=== PATIENT | male | born 1970 | race Caucasian/White ===

== ENCOUNTER 2017-12-02 15:34 | Inpatient (IN) | payer MEDICAID, SELFPAY ==
[2017-12-02 15:35] VITALS: BP 160/83; PULSE 88; RESP 16; TEMP 37.1; O2SAT 99; BMI 33.1
--- NOTE | 2017-12-02 16:23 | RAD_ITS ---
STUDY: X-RAY - LEFT HAND REASON FOR EXAM: Male, 46 years old. Cat-bite. TECHNIQUE: 3 view(s) of the hand. COMPARISON: None. FINDINGS: Normal radiocarpal articulation. Normal distal radioulnar joint. Normal visualized carpal bones. Normal carpal articulations Normal carpometacarpal articulation of the thumb. Normal second through fifth carpometacarpal joints. Normal metacarpi. Normal metacarpophalangeal joint of the thumb. Normal interphalangeal joint of the thumb. Normal proximal and distal phalanges of the thumb. Normal metacarpophalangeal joints of the second through fifth fingers. Normal proximal and distal interphalangeal joints of the second through fifth fingers. Normal phalanges of the second through fifth fingers. There is soft tissue swelling overlying the fifth metacarpal. RAD/Hand Min 3 Views IMPRESSION: No osseous injury identified. Soft tissue swelling overlying the fifth metacarpal. Electronically Signed: Guerline Johnson MD at 17:17 EST Tel , Service support ,
--- NOTE | 2017-12-02 16:27 | ED.DCSUM_ITS ---
- ER Visit Summary Date of Service: 12/02/17 Chief Complaint: Cat bite right hand History of Present Illness: The patient is a 46 M who states that he was bit by his cat on the right hand 3 days ago. His hand is more painful and swollen today. He has not noted fever. Shots are all up-to-date. Past history for patient is significant for DE, coronary disease, diabetes, hypertension, and renal failure. He has 2 cardiac stents. Physical Examination: Pressures 160/83, otherwise vitals are normal. Patient is afebrile. Head neck examination is unremarkable. Heart is regular rate and rhythm without murmur. Lung sounds are clear. Right upper extremity examination reveals pustules along the ulnar side of the right hand. There is a small abrasion over the extensor finger #5 near the PIP joint. There is no clinical evidence of tenosynovitis. Right hand is swollen. Test Results: CBC was normal white count. Chemistry studies are significant only for glucose of 163. Blood cultures were sent. Emergency Department Course and Treatment: Patient was given oxycodone for pain. Shortly following this he started complaining of pain in the left axilla region. 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 Troponin is less than 0.02. Patient was given a dose of IV Unasyn. Right hand x-rays reveal no osseous injury. There is soft tissue swelling over the fifth metacarpal. Patient was consented for I&D. 2 cc of lidocaine was infused around the pustules. The pustules were opened and aerobic and anaerobic cultures were obtained of the fluid. Wounds were cleansed, erythema outlined, and dressing was placed. I spoke with Dr. Adams, who will see the patient in consultation. Patient was admitted to hospitalist service. Treatment Plan: [] Disposition: Admit Impression: Cat bite right hand This note was generated with [employer]azood[employer] dictation software. It may contain incorrect words, spelling, and punctuation that were not noted in review of the chart prior to signing ED Disposition - Plan for ED Patient: Disposition: Acute Care [facility] Chief Complaint: Bite
[2017-12-02] MEDS: oxyCODONE 5 MG Tablet 10 MG PO (16:40)
[2017-12-02] MEDS: 0.9% Normal Saline 1,000 ML 150 ML IV (16:42)
--- NOTE | 2017-12-02 17:00 | EKG12_ITS ---
Test Reason : CP Blood Pressure : / mmHG Vent. Rate : 076 BPM Atrial Rate : 076 BPM P-R Int : 152 ms QRS Dur : 082 ms QT Int : 386 ms P-R-T Axes : 064 049 039 degrees QTc Int : 434 ms Normal sinus rhythm Normal ECG Confirmed by RENO JUAN MD ([id number]), writer editor GRUPO MIJARES ([id number] on 12/04/2017 1:39:27 PM Referred By: CAS
[2017-12-02 17:02] LABS: Absolute Lymphocyte Count 1.34 X10^3/ul (0.83-4.51); Absolute Neutrophil Count 3.2 X10^3/uL (2.0-7.7); Basophil# 0.03 X10^3/uL; Basophil% 0.6 % (0-1); Eosinophil# 0.17 X10^3/uL; Eosinophils% 3.3 % (0-5); Hematocrit 37.4 % (40-54); Hemoglobin 12.1 g/dl (13.0-16.5); Lymphocyte # 1.34 X10^3/ul (4.0); Lymphocyte % 26.2 % (19-41); Mean Corp Hgb Conc 32.4 g/gl (32-36); Mean Corpuscular Volume 92.8 fL (80-94); Mean Platelet Vol. 10.7 fl (6.2-12.0); Monocyte# 0.37 X10^3/uL; Monocyte% 7.2 % (0-10); Neutrophil # 3.19 X10^3/uL (2.7-7.7); Neutrophil % 62.5 % (47-70); Platelet Count 213 K/mm3 (150-450); RBC Distribution Width CV 13.4 % (11.6-14.6); RBC Distribution Width SD 44.2 fl (35.1-43.9); Red Blood Count 4.03 M/mm3 (4.6-6.2); White Blood Count 5.1 K/mm3 (4.4-11.0)
[2017-12-02 17:14] LABS: POSITIVE COUNT NO; POSITIVE DIFFERENTIAL NO; POSITIVE MORPHOLOGY NO
[2017-12-02 17:17] LABS: Anion Gap 5 (5-15); BUN 8 mg/dL (7-18); BUN/Creat Ratio 9.5 RATIO (10-20); Calcium,Total 8.1 mg/dL (8.5-10.1); Chloride 106 mmol/L (98-107); Creatinine, Serum 0.84 mg/dL (0.70-1.30); EST Glomerular Filtration Rate 104 mL/min (>60); Est Glom Filt Rate - Afr Amer 126 mL/min (>60); Estimated Creatinine Clearance 134.91 ml/min; Glucose 163 mg/dL (74-106); Potassium 3.8 mmol/L (3.5-5.1); Sodium Level 138 mmol/L (136-145)
[2017-12-02 18:01] VITALS: BP 161/89; PULSE 60; RESP 16; O2SAT 96
--- NOTE | 2017-12-02 19:09 | PCM.HP.STD ---
Problem List (1) Cat bite of hand Status: Acute Qualifiers: Encounter type: initial encounter Laterality: right Qualified Code(s): S61.451A - Open bite of right hand, initial encounter; W55.01XA - Bitten by cat, initial encounter (2) Essential (primary) hypertension Status: Chronic (3) CAD (coronary artery disease) Status: Chronic Comment: hx AMI 1 stent (4) Seasonal allergies Status: Chronic (5) Overactive bladder Status: Chronic (6) spinal stenosis Status: Chronic (7) Hyperlipidemia Status: Chronic (8) Diabetes Status: Chronic Comment: with diabetic neuropathy History of Present Illness Date of Admission: 12/02/17 Chief Complaint: cat bite/ skin infection The patient is a 46 year old male patient who presents to the ER three days after being bitten by his own cat at home. He was bit on his right hand and has subsequently developed swelling of the left hand with redness and warmth along with increasing pain. He was found to have pustules on the ulnar side of the right hand. Wound was cleaned and dressed in the ER. The patient is on chronic oxycodone by his PCP for presumed back pain. He has a significant history of coronary artery disease and has two stents. A troponin was run but is negative. Due to the nature of location of the bite and ensuing infection admission to the hospital was warranted for IV antibiotics. Dr. Adams was notified by ER physician and will be consulted for wound management. Past Medical History Past Medical History (Chronic Problems): Chronic Problems (Last Updated 09/24/17 @ 09:54 by WILMAN Bell) Essential (primary) hypertension (Chronic) CAD (coronary artery disease) (Chronic) hx AMI 1 stent Seasonal allergies (Chronic) Overactive bladder (Chronic) spinal stenosis (Chronic) Hyperlipidemia (Chronic) Diabetes (Chronic) with diabetic neuropathy Allergies acetaminophen [From Tylenol] Allergy (Verified 12/02/17 15:35) Angioedema aspirin Allergy (Verified 12/02/17 15:35) Anaphylaxis ibuprofen [From Motrin] Allergy (Verified 12/02/17 15:35) Anaphylaxis metformin Allergy (Verified 12/02/17 15:35) Swelling pollen extracts Allergy (Verified 12/02/17 15:35) Hives morphine Adverse Reaction (Verified 12/02/17 15:35) Other REDDNESS AND ITCHING TO IV SITE Home Medications: Ambulatory Orders Medication Instructions Recorded Atorvastatin Calcium [Lipitor] 80 mg PO QHS 08/02/15 Citalopram [Celexa] 10 mg PO DAILY 08/02/15 Cyclobenzaprine [Flexeril] 10 mg PO TID 08/02/15 Gabapentin [Neurontin] 800 mg PO TID 08/02/15 Oxybutynin [Ditropan] 5 mg PO DAILY 08/02/15 Ranitidine [Zantac] 300 mg PO BID 08/02/15 Cholecalciferol (VIT D3) [Vitamin 1,000 unit PO BID 08/17/15 D3] B12/Levomefolate Calcium/B-6 1 ea PO DAILY 11/17/15 [Foltx Tablet] Nitroglycerin [Nitrostat] 0.4 mg SUBLINGUAL Q5M PRN 11/17/15 Esomeprazole Mag Trihydrate 40 mg PO BID 03/05/16 [Nexium] Oxycodone [Oxyir] 5 mg PO BID PRN PRN 03/05/16 Lisinopril [Zestril] 2.5 mg PO DAILY #30 tab 03/02/17 Metoprolol Succinate [Toprol Xl] 25 mg PO DAILY #30 tab.er.24h 03/02/17 GlipiZIDE [Glucotrol] 5 mg PO DAILY@0730 #30 tab 07/27/17 cilostazol 100 mg tablet 100 mg PO BID #60 tab 09/25/17 clopidogrel 75 mg tablet 75 mg PO QDAY 09/25/17 Hydroxyzine HCl 25 mg PO 4X/DAY 12/02/17 Isosorbide Mononitrate [Imdur] 30 mg PO DAILY 12/02/17 Surgical History: angioplasty, cholecystectomy, - - 3 hernia,both knees,spinal injections, 1 stent in his heart Smoking Status: Current every day smoker - *Family History Paternal History Items: Heart Disease Maternal History Items: - - mother with cirrhosis, kidney disease Sibling History Items: - - ca Review of Systems Constitutional: Reports: Chills. Denies: Fever, Weight Change HEENT: Denies: Head Aches, Sinus Congestion, Sinus Drainage Cardiovascular: Denies: Chest Pain, Palpitations Respiratory: Denies: Cough, Shortness of breath at rest, Sputum production Gastrointestinal: Denies: Abdominal Pain, Nausea, Vomiting Genitourinary: Denies: Dysuria Musculoskeletal: Denies: Joint Pain, Joint Tenderness Skin: Reports: Skin Changes, Wounds. Denies: Rash Neurological: Denies: Numbness, Tingling, Focal weakness Psychiatric: Reports: Anxiety. Denies: Depression, Homicidal Ideations, Suicidal Ideations Hematologic/ Lymphatic: Denies: Easy Bruising, Easy Bleeding VTE Information - Inpt Only VTE Present on Admission: No VTE Mechan Device Prophylaxis: None VTE Pharm Prophylaxis ordered?: Yes Patient Problems: Active and Suspected Problems (Last Updated 09/24/17 @ 09:54 by Fede Montero MD SENIOR RESEARCH SCIENTIST-C) Cat bite of hand (Acute) - Physical Exam General: Alert, Oriented x3, Cooperative HEENT: Atraumatic, Normocephalic Neck: Supple Lungs: Clear to auscultation, Normal air movement, No rhonchi, No wheeze, No rales Cardiovascular: Regular rate, Regular Rhythm, Normal S1, Normal S2, No murmurs Abdomen: Bowel Sounds Present, Obese Extremities: Edema - right upper extremity Skin: Ulcer/ Wound - two pustular lesions on ulnar side of right hand. generalized edema/erythema of right hand to the wrist line. No lymphangitic streaking noted Musculoskeletal: Tenderness - right hand Neurological: Neuro grossly intact Psych/Mental Status: Normal Affect, Appropriate Vital Signs Temp Pulse Resp BP Pulse Ox 98.7 F 60 16 161/89 H 96 12/02/17 15:35 12/02/17 18:01 12/02/17 18:01 12/02/17 18:01 12/02/17 18:01 Oxygen Delivery Method Room Air Weight: 272 lb 0.807 oz Body Mass Index (BMI) 33.1 Finger Stick Blood Glucose 127 Laboratory Tests Past 24 Hrs 12/02/17 12/02/17 12/02/17 16:35 16:35 16:35 WBC 5.1 RBC 4.03 L Hgb 12.1 L Hct 37.4 L MCV 92.8 MCH 30.0 MCHC 32.4 RDW 13.4 RDW Differential 44.2 H Plt Count 213 MPV 10.7 Immature Gran % (Auto) 0.200 Neut % (Auto) 62.5 Lymph % (Auto) 26.2 Sanders % (Auto) 7.2 Eos % (Auto) 3.3 Baso % (Auto) 0.6 Absolute Neuts (auto) 3.2 Absolute Lymphs (auto) 1.34 Total Counted Not Reportable Sodium 138 Potassium 3.8 Chloride 106 Carbon Dioxide 27.0 Anion Gap 5 BUN 8 Creatinine 0.84 Estim Creat Clear Calc 134.91 Est GFR (MDRD) Af Amer 126 Est GFR (MDRD) Non-Af 104 BUN/Creatinine Ratio 9.5 L Glucose 163 H Calcium 8.1 L Troponin I < 0.02 Assessment/Plan Active and Suspected Problems (Last Updated 09/24/17 @ 09:54 by Fede Montero, MD SENIOR RESEARCH SCIENTIST-C) Cat bite of hand (Acute) Chronic Problems (Last Updated 09/24/17 @ 09:54 by MILY BellC) Essential (primary) hypertension (Chronic) CAD (coronary artery disease) (Chronic) hx AMI 1 stent Seasonal allergies (Chronic) Overactive bladder (Chronic) spinal stenosis (Chronic) Hyperlipidemia (Chronic) Diabetes (Chronic) with diabetic neuropathy Plan - admit to general medical floor - consult Dr Adams - Melvin to be continued - regular diet - oxycodone prn for pain - cbc, bmp in am - continue routine home medications - LMWH for DVT prophylaxis Code Visit Inpatient E&M: 26955 Init Hosp L3
[2017-12-02 19:16] VITALS: BP 122/95; PULSE 72; RESP 17; O2SAT 97
[2017-12-02 19:20] VITALS: BP 122/95; PULSE 72; RESP 17; O2SAT 95
[2017-12-02 19:21] VITALS: BMI 33.1
[2017-12-02 19:54] VITALS: BMI 32.1
[2017-12-02 20:30] VITALS: BP 128/86; PULSE 76; RESP 18; TEMP 36.8; O2SAT 96
[2017-12-02] MEDS: Pantoprazole Sodium 40 MG Tablet PO (21:21)
[2017-12-02] MEDS: Gabapentin 800 MG Tablet PO (21:21)
[2017-12-02] MEDS: Famotidine 20 MG Tablet 40 MG PO (21:21)
[2017-12-02] MEDS: Cilostazol 50 MG Tablet 100 MG PO (21:21)
[2017-12-02] MEDS: Atorvastatin Calcium 80 MG Tablet PO (21:21)
[2017-12-02] MEDS: oxyCODONE 5 MG Tablet PO (21:22)
[2017-12-02 22:20] LABS: Bedside Glucose 227 mg/dL (70-110)
[2017-12-03 02:30] VITALS: BP 124/82; PULSE 72; RESP 18; TEMP 36.2; O2SAT 95
[2017-12-03 07:06] LABS: Bedside Glucose 110 mg/dL (70-110)
[2017-12-03 08:00] VITALS: BP 146/81; PULSE 69; RESP 16; TEMP 36.6; O2SAT 98
[2017-12-03] MEDS: Lisinopril 2.5 MG Tablet PO (09:16)
[2017-12-03 09:17] VITALS: PULSE 69
[2017-12-03] MEDS: Cilostazol 50 MG Tablet 100 MG PO ×2 (09:17→21:17)
[2017-12-03] MEDS: Metoprolol(XL)Succ 25 MG Tablet PO (09:17)
[2017-12-03] MEDS: Clopidogrel Bisulfate 75 MG Tablet PO (09:18)
[2017-12-03] MEDS: Citalopram 10 MG Tablet PO (09:18)
[2017-12-03] MEDS: Pantoprazole Sodium 40 MG Tablet PO ×2 (09:18→21:17)
[2017-12-03] MEDS: Isosorbide Mononitrate 30 MG Tablet PO (09:18)
[2017-12-03] MEDS: Gabapentin 800 MG Tablet PO ×3 (09:18→17:07)
[2017-12-03] MEDS: Famotidine 20 MG Tablet 40 MG PO ×2 (09:19→21:17)
[2017-12-03] MEDS: Oxybutynin 5 MG Tablet PO (09:19)
[2017-12-03] MEDS: Enoxaparin 40 MG/0.4 ML Syringe SC (09:20)
--- NOTE | 2017-12-03 09:45 | PCM.CONS.GEN ---
Reason for Consult Date of Consultation: 12/03/17 Reason for Consultation: Cat bite ulnar aspect right palm. REFERRING PHYSICIAN: Dr. Shelton. NIGHT CLUB MANAGER: Dr. Adams. History of Present Illness: The patient is a 46 year old M who was admitted because a right hand infection after being bitten by his own cat at home a few days ago. He developed increasing pain and redness and swelling in his right palm. He denies any fever. He is diabetic and was concerned because of his worsening symptomatology. In the ED, an Xray was obtained which showed no fracture and no foreign body. His WBC in the ED was 5.1. In the ED the two puncture wounds on the ulnar aspect right palm were opened up to allow better drainage. A wound culture was obtained. He was started on Unasyn. I was asked to evaluate this patient for surgical options for treatment. Past Medical History Past Medical History (Chronic Problems): Chronic Problems (Last Updated 09/24/17 @ 09:54 by Fede Montero NP-C) Smoker (Chronic) Essential (primary) hypertension (Chronic) CAD (coronary artery disease) (Chronic) hx AMI 1 stent Seasonal allergies (Chronic) Overactive bladder (Chronic) spinal stenosis (Chronic) Hyperlipidemia (Chronic) Diabetes (Chronic) with diabetic neuropathy Allergies acetaminophen [From Tylenol] Allergy (Verified 12/02/17 15:35) Angioedema aspirin Allergy (Verified 12/02/17 15:35) Anaphylaxis ibuprofen [From Motrin] Allergy (Verified 12/02/17 15:35) Anaphylaxis metformin Allergy (Verified 12/02/17 15:35) Swelling pollen extracts Allergy (Verified 12/02/17 15:35) Hives morphine Adverse Reaction (Verified 12/02/17 15:35) Other REDNESS AND ITCHING TO IV SITE Current Medications Atorvastatin Calcium (Lipitor) 80 mg PO QHS [facility] Cholecalciferol (Vitamin D) 1,000 unit PO BID [facility] Cilostazol (Pletal) 100 mg PO BID [facility] Citalopram Hydrobromide (Celexa) 10 mg PO DAILY [facility] Clopidogrel Bisulfate (Plavix) 75 mg PO DAILY [facility] Cyclobenzaprine HCl (Flexeril) 10 mg PO TID [facility] Enoxaparin Sodium (Lovenox) 40 mg SC DAILY@1000 [facility] Famotidine (Pepcid) 40 mg PO BID [facility] Gabapentin (Neurontin) 800 mg PO TIDCM [facility] Glipizide (Glucotrol) 5 mg PO DAILY@0730 [facility] Glucagon () 1 mg IM .X1 PRN Hydroxyzine Pamoate (Vistaril) 25 mg PO 4X/DAY [facility] Ampicillin Sodium/Sulbactam (Sodium 3 gm/ Sodium Chloride) 112 mls @ 150 mls/hr IV Q6 [facility] Isosorbide Mononitrate (Imdur) 30 mg PO DAILY [facility] Lisinopril (Zestril) 2.5 mg PO DAILY [facility] Magnesium Hydroxide (Milk Of Magnesia) 30 ml PO DAILY PRN Metoprolol Succinate (Toprol Xl (Beta Delia)) 25 mg PO DAILY [facility] Nitroglycerin (Nitrostat) 0.4 mg SUBLINGUAL Q5M PRN Non-Formulary Medication (B12/Levomefolate Calcium/B-6 [Foltx Tablet]) 1 ea PO DAILY [facility] Oxybutynin Chloride (Ditropan) 5 mg PO DAILY [facility] Oxycodone HCl (Oxyir) 5 mg PO BID PRN Pantoprazole Sodium (Protonix) 40 mg PO BID [facility] PAST MEDICAL HISTORY Diabetes mellitus. Hypertension. CAD with PR. Chest pain. Hypertension. Hyperlipidemia. Migraines. Ulcers. Leg pain. Depression. Anxiety. Spinal stenosis. Overactive bladder. Home Medications: Ambulatory Orders Medication Instructions Recorded Atorvastatin Calcium [Lipitor] 80 mg PO QHS 08/02/15 Citalopram [Celexa] 10 mg PO DAILY 08/02/15 Cyclobenzaprine [Flexeril] 10 mg PO TID 08/02/15 Gabapentin [Neurontin] 800 mg PO TID 08/02/15 Oxybutynin [Ditropan] 5 mg PO DAILY 08/02/15 Ranitidine [Zantac] 300 mg PO BID 08/02/15 Cholecalciferol (VIT D3) [Vitamin 1,000 unit PO BID 08/17/15 D3] B12/Levomefolate Calcium/B-6 1 ea PO DAILY 11/17/15 [Foltx Tablet] Nitroglycerin [Nitrostat] 0.4 mg SUBLINGUAL Q5M PRN 11/17/15 Esomeprazole Mag Trihydrate 40 mg PO BID 03/05/16 [Nexium] Oxycodone [Oxyir] 5 mg PO BID PRN PRN 03/05/16 clopidogrel 75 mg tablet 75 mg PO QDAY 09/25/17 Cilostazol 100 mg PO BID 12/02/17 GlipiZIDE [Glucotrol] 5 mg PO DAILY@0730 12/02/17 Hydroxyzine HCl 25 mg PO 4X/DAY 12/02/17 Isosorbide Mononitrate [Imdur] 30 mg PO DAILY 12/02/17 Lisinopril [Zestril] 2.5 mg PO DAILY 12/02/17 Metoprolol Succinate [Toprol Xl] 25 mg PO DAILY 12/02/17 Levofloxacin [Levaquin] 500 mg PO DAILY #7 tab 12/04/17 Surgical History: angioplasty, cholecystectomy, - - 3 hernia,both knees,spinal injections, 1 stent in his heart Psychiatric History: Anxiety, Depression Lives: Spouse/ Significant Other Smoking Status: Current every day smoker Tobacco Use: Cigarettes Alcohol: None Drugs: None - *Family History Paternal History Items: Heart Disease Maternal History Items: - - mother with cirrhosis, kidney disease Sibling History Items: - - ca Review of Systems Comment: Review of Systems. Constitutional: Reports: Chills. Denies: Fever, Weight Change. HEENT: Denies: Head Aches, Sinus Congestion, Sinus Drainage. Cardiovascular: Denies: Chest Pain, Palpitations. Respiratory: Denies: Cough, Shortness of breath at rest, Sputum production. Gastrointestinal: Denies: Abdominal Pain, Nausea, Vomiting. Genitourinary: Denies: Dysuria. Musculoskeletal: Denies: Joint Pain, Joint Tenderness. Skin: Reports: Skin Changes, Wounds. Denies: Rash. Neurological: Denies: Numbness, Tingling, Focal weakness. Psychiatric: Reports: Anxiety. Denies: Depression, Homicidal Ideations, Suicidal Ideations. Hematologic/ Lymphatic: Denies: Easy Bruising, Easy Bleeding - Physical Exam General: Alert, Oriented x3, Cooperative HEENT: Atraumatic, Normocephalic Neck: Supple Lungs: Clear to auscultation Cardiovascular: Regular rate, Regular Rhythm Abdomen: Soft and nondistended. Extremities: Edema - mild edema right upper extremity Skin: Ulcer/ Wound - two pustular lesions on ulnar side of right hand. Subcutaneous tissue seen. Mild edemal right palm in area of cat bite wounds. Some periwound redness. According to the nurses, the redness has improved since the IV antibiotics were started. Patient can make a fist. Flexion and extension of his fingers right hand are intact. Flexion and extension of small finger is nontender without evidence of tenosynovitis at this time. Wrist is nontender. Fingers are warm with good capillary refill. No redness on distal forearm. Radial pulses are palpable. No axillary adenopathy. Neurological: Neuro grossly intact Psych/Mental Status: Normal Affect, Appropriate Vital Signs Vital Signs Temp Pulse Resp BP Pulse Ox 97.8 F 69 16 146/81 H 98 12/03/17 08:00 12/03/17 09:17 12/03/17 08:00 12/03/17 08:00 12/03/17 08:00 Oxygen Delivery Method Room Air Weight: 264 lb Body Mass Index (BMI) 32.1 Intake and Output for Last 24 Hours 12/01/17 12/02/17 12/03/17 23:59 23:59 23:59 Intake Total 1470 / 1470 Output Total 750 / 750 Balance 720 / 720 POC Glucose 12/03/17 12/02/17 06:03 21:52 POC Glucose 110 227 H Diagnostic Data Hand X-Ray 12/02/17 16:23 IMPRESSION: No osseous injury identified. Soft tissue swelling overlying the fifth metacarpal. Electronically Signed: Guerline Johnson MD at 17:17 EST Tel , Service support , Assessment/Plan 1. Cat bite wound infection ulnar aspect right palm with cellulitis. 2. Diabetes mellitus. 3. Smoker. Continue IV Unasyn. If improvement continues can send home on Augmentin. Wound culture is pending. A positive culture may necessitate antibiotic modification. Patient has good range of motion and will encourage to minimize stiffness. If redness doesn't resolve and the infection comes to a head in the area of the puncture wounds, then would need to go to OR for incision and drainage and excisional debridement to open up the wounds to make the wound care easier. Wound care will be with Aquacel Silver. If the Silver dressing can't be placed into the puncture wounds because they are small, then would place iodoform gauze into the puncture wounds. If surgery is necessary, then it will be easier to use Aquacel Silver for the wound care. Will order a CT hand to look for a deeper focus of infection. If improvement is seen and the patient is sent home on Augmentin, I will followup closely on a weekly basis until healed since cat bites can still become problematic several days later and may still require surgery even after discharge. If surgery is done, then he will followup at the [facility]. Patient was informed of the risks and complications of the procedure including alternatives to surgery. These were discussed with him personally. He voices understanding and wishes to proceed with close observation, IV antibiotics and wound care and he understands that surgery may be necessary. Some of the risks that were discussed included but were not inclusive of failure to diagnose including symptom relief, pain, infection, numbness, stiffness, loss of digit, RSD, need for further surgery, contracture, and wound healing problems. Encouraged the patient to stop smoking as it may have deleterious effects on wound healing. Code Visit Inpatient E&M: 41529 Init Hosp L2 - ICD-10 - W55.01xA, S61.451A, L03.113, F17.200
--- NOTE | 2017-12-03 09:51 | CON.PCM_ITS ---
Reason for Consult Date of Consultation: 12/03/17 Reason for Consultation: Cat bite ulnar aspect right palm. REFERRING PHYSICIAN : Dr. Shelton. SECURITY ARCHITECT: Dr. Adams. History of Present Illness: The patient is a 46 year old M who was admitted because a right hand infection after being bitten by his own cat at home a few days ago. He developed increasing pain and redness and swelling in his right palm. He denies any fever. He is diabetic and was concerned because of his worsening symptomatology. In the ED, an Xray was obtained which showed no fracture and no foreign body. His WBC in the ED was 5.1. In the ED the two puncture wounds on the ulnar aspect right palm were opened up to allow better drainage. A wound culture was obtained. He was started on Unasyn. I was asked to evaluate this patient for surgical options for treatment. Past Medical History Past Medical History (Chronic Problems): Chronic Problems (Last Updated 09/24/17 @ 09:54 by Fede Montero NP-C) Smoker (Chronic) Essential (primary) hypertension (Chronic) CAD (coronary artery disease) (Chronic) hx AMI 1 stent Seasonal allergies (Chronic) Overactive bladder (Chronic) spinal stenosis (Chronic) Hyperlipidemia (Chronic) Diabetes (Chronic) with diabetic neuropathy Allergies acetaminophen [From Tylenol] Allergy (Verified 12/02/17 15:35) Angioedema aspirin Allergy (Verified 12/02/17 15:35) Anaphylaxis ibuprofen [From Motrin] Allergy (Verified 12/02/17 15:35) Anaphylaxis metformin Allergy (Verified 12/02/17 15:35) Swelling pollen extracts Allergy (Verified 12/02/17 15:35) Hives morphine Adverse Reaction (Verified 12/02/17 15:35) Other REDNESS AND ITCHING TO IV SITE Current Medications Atorvastatin Calcium (Lipitor) 80 mg PO QHS [facility] Cholecalciferol (Vitamin D) 1,000 unit PO BID [facility] Cilostazol (Pletal) 100 mg PO BID [facility] Citalopram Hydrobromide (Celexa) 10 mg PO DAILY [facility] Clopidogrel Bisulfate (Plavix) 75 mg PO DAILY [facility] Cyclobenzaprine HCl (Flexeril) 10 mg PO TID [facility] Enoxaparin Sodium (Lovenox) 40 mg SC DAILY@1000 [facility] Famotidine (Pepcid) 40 mg PO BID [facility] Gabapentin (Neurontin) 800 mg PO TIDCM [facility] Glipizide (Glucotrol) 5 mg PO DAILY@0730 [facility] Glucagon () 1 mg IM .X1 PRN Hydroxyzine Pamoate (Vistaril) 25 mg PO 4X/DAY [facility] Ampicillin Sodium/Sulbactam (Sodium 3 gm/ Sodium Chloride) 112 mls @ 150 mls/ hr IV Q6 [facility] Isosorbide Mononitrate (Imdur) 30 mg PO DAILY [facility] Lisinopril (Zestril) 2.5 mg PO DAILY [facility] Magnesium Hydroxide (Milk Of Magnesia) 30 ml PO DAILY PRN Metoprolol Succinate (Toprol Xl (Beta Delia)) 25 mg PO DAILY [facility] Nitroglycerin (Nitrostat) 0.4 mg SUBLINGUAL Q5M PRN Non-Formulary Medication (B12/Levomefolate Calcium/B-6 [Foltx Tablet]) 1 ea PO DAILY [facility] Oxybutynin Chloride (Ditropan) 5 mg PO DAILY [facility] Oxycodone HCl (Oxyir) 5 mg PO BID PRN Pantoprazole Sodium (Protonix) 40 mg PO BID [facility] PAST MEDICAL HISTORY Diabetes mellitus. Hypertension. CAD with [facility]. Chest pain. Hypertension. Hyperlipidemia. Migraines. Ulcers. Leg pain. Depression. Anxiety. Spinal stenosis. Overactive bladder. Home Medications: Ambulatory Orders Medication Instructions Recorded Atorvastatin Calcium [Lipitor] 80 mg PO QHS 08/02/15 Citalopram [Celexa] 10 mg PO DAILY 08/02/15 Cyclobenzaprine [Flexeril] 10 mg PO TID 08/02/15 Gabapentin [Neurontin] 800 mg PO TID 08/02/15 Oxybutynin [Ditropan] 5 mg PO DAILY 08/02/15 Ranitidine [Zantac] 300 mg PO BID 08/02/15 Cholecalciferol (VIT D3) [Vitamin 1,000 unit PO BID 08/17/15 D3] B12/Levomefolate Calcium/B-6 1 ea PO DAILY 11/17/15 [Foltx Tablet] Nitroglycerin [Nitrostat] 0.4 mg SUBLINGUAL Q5M PRN 11/17/15 Esomeprazole Mag Trihydrate 40 mg PO BID 03/05/16 [Nexium] Oxycodone [Oxyir] 5 mg PO BID PRN PRN 03/05/16 clopidogrel 75 mg tablet 75 mg PO QDAY 09/25/17 Cilostazol 100 mg PO BID 12/02/17 GlipiZIDE [Glucotrol] 5 mg PO DAILY@0730 12/02/17 Hydroxyzine HCl 25 mg PO 4X/DAY 12/02/17 Isosorbide Mononitrate [Imdur] 30 mg PO DAILY 12/02/17 Lisinopril [Zestril] 2.5 mg PO DAILY 12/02/17 Metoprolol Succinate [Toprol Xl] 25 mg PO DAILY 12/02/17 Levofloxacin [Levaquin] 500 mg PO DAILY #7 tab 12/04/17 Surgical History: angioplasty, cholecystectomy, - - 3 hernia,both knees,spinal injections, 1 stent in his heart Psychiatric History: Anxiety, Depression Lives: Spouse/ Significant Other Smoking Status: Current every day smoker Tobacco Use: Cigarettes Alcohol: None Drugs: None - *Family History Paternal History Items: Heart Disease Maternal History Items: - - mother with cirrhosis, kidney disease Sibling History Items: - - ca Review of Systems Comment: Review of Systems. Constitutional: Reports: Chills. Denies: Fever, Weight Change. HEENT: Denies: Head Aches, Sinus Congestion, Sinus Drainage. Cardiovascular: Denies: Chest Pain, Palpitations. Respiratory: Denies: Cough, Shortness of breath at rest, Sputum production. Gastrointestinal: Denies: Abdominal Pain, Nausea, Vomiting. Genitourinary: Denies: Dysuria. Musculoskeletal: Denies: Joint Pain, Joint Tenderness. Skin: Reports: Skin Changes, Wounds. Denies: Rash. Neurological: Denies: Numbness, Tingling, Focal weakness. Psychiatric: Reports: Anxiety. Denies: Depression, Homicidal Ideations, Suicidal Ideations. Hematologic/ Lymphatic: Denies: Easy Bruising, Easy Bleeding - Physical Exam General: Alert, Oriented x3, Cooperative HEENT: Atraumatic, Normocephalic Neck: Supple Lungs: Clear to auscultation Cardiovascular: Regular rate, Regular Rhythm Abdomen: Soft and nondistended. Extremities: Edema - mild edema right upper extremity Skin: Ulcer/ Wound - two pustular lesions on ulnar side of right hand. Subcutaneous tissue seen. Mild edemal right palm in area of cat bite wounds. Some periwound redness. According to the nurses, the redness has improved since the IV antibiotics were started. Patient can make a fist. Flexion and extension of his fingers right hand are intact. Flexion and extension of small finger is nontender without evidence of tenosynovitis at this time. Wrist is nontender. Fingers are warm with good capillary refill. No redness on distal forearm. Radial pulses are palpable. No axillary adenopathy. Neurological: Neuro grossly intact Psych/Mental Status: Normal Affect, Appropriate Vital Signs Vital Signs Temp Pulse Resp BP Pulse Ox 97.8 F 69 16 146/81 H 98 12/03/17 08:00 12/03/17 09:17 12/03/17 08:00 12/03/17 08:00 12/03/17 08:00 Oxygen Delivery Method Room Air Weight: 264 lb Body Mass Index (BMI) 32.1 Intake and Output for Last 24 Hours 12/01/17 12/02/17 12/03/17 23:59 23:59 23:59 Intake Total 1470 / 1470 Output Total 750 / 750 Balance 720 / 720 POC Glucose 12/03/17 12/02/17 06:03 21:52 POC Glucose 110 227 H Diagnostic Data Hand X-Ray 12/02/17 16:23 IMPRESSION: No osseous injury identified. Soft tissue swelling overlying the fifth metacarpal. Electronically Signed: Guerline Johnson MD at 17:17 EST Tel , Service support , Assessment/Plan 1. Cat bite wound infection ulnar aspect right palm with cellulitis. 2. Diabetes mellitus. 3. Smoker. Continue IV Unasyn. If improvement continues can send home on Augmentin. Wound culture is pending. A positive culture may necessitate antibiotic modification. Patient has good range of motion and will encourage to minimize stiffness. If redness doesn't resolve and the infection comes to a head in the area of the puncture wounds, then would need to go to OR for incision and drainage and excisional debridement to open up the wounds to make the wound care easier. Wound care will be with Aquacel Silver. If the Silver dressing can't be placed into the puncture wounds because they are small, then would place iodoform gauze into the puncture wounds. If surgery is necessary, then it will be easier to use Aquacel Silver for the wound care. Will order a CT hand to look for a deeper focus of infection. If improvement is seen and the patient is sent home on Augmentin, I will followup closely on a weekly basis until healed since cat bites can still become problematic several days later and may still require surgery even after discharge. If surgery is done, then he will [facility]. Patient was informed of the risks and complications of the procedure including alternatives to surgery. These were discussed with him personally. He voices understanding and wishes to proceed with close observation, IV antibiotics and wound care and he understands that surgery may be necessary. Some of the risks that were discussed included but were not inclusive of failure to diagnose including symptom relief, pain, infection, numbness, stiffness, loss of digit, RSD, need for further surgery, contracture, and wound healing problems. Encouraged the patient to stop smoking as it may have deleterious effects on wound healing. Code Visit Inpatient E&M: 50921 Init Hosp L2 - ICD-10 - W55.01xA, S61.451A, L03.113, F17.200
[2017-12-03 13:00] LABS: Bedside Glucose 133 mg/dL (70-110)
--- NOTE | 2017-12-03 14:12 | CASEMGMT ---
RN SUE Face to Face with patient for initial transition planning/care coordination assessment. RN CM introduced self and role at [facility]. Patient lying in bed, alert and oriented. Patient willing to participate in assessment and is able to answer all questions appropriately. Care providers, pharmacy, and demographics verified. See link attached. Patient wishes to discharge home, denies need for home health at this time. Patient states he has no further needs or concerns at this time. CM to follow for discharge planning needs that may arise. Disposition Plan: Patient to discharge home with family support and follow-up plans in place.
[2017-12-03 15:17] VITALS: BP 118/73; PULSE 80; RESP 16; TEMP 36.7; O2SAT 97
[2017-12-03] MEDS: oxyCODONE 5 MG Tablet PO (15:20)
--- NOTE | 2017-12-03 17:11 | PCM.PN.HOSP ---
Patient Problems: Active and Suspected Problems (Last Updated 09/24/17 @ 09:54 by Fede Montero NP-C) Cat bite of hand (Acute) Subjective: CC: Right hand infection Vitals/I&O's: Vital Signs Temp Pulse Resp BP Pulse Ox 98.1 F 80 16 118/73 97 12/03/17 15:17 12/03/17 15:17 12/03/17 15:17 12/03/17 15:17 12/03/17 15:17 Oxygen Delivery Method Room Air Weight: 119.748 kg Body Mass Index (BMI) 32.1 Intake and Output for Last 24 Hours 12/01/17 12/02/17 12/03/17 23:59 23:59 23:59 Intake Total 2201 / 2201 Output Total 2250 / 2250 Balance -49 / -49 Laboratory Results 12/02/17 21:52: POC Glucose 227 H 12/03/17 06:03: POC Glucose 110 12/03/17 11:59: POC Glucose 133 H Current Medications Atorvastatin Calcium (Lipitor) 80 mg PO QHS [facility] Last Admin: 12/02/17 21:21 Dose: 80 mg Cholecalciferol (Vitamin D) 1,000 unit PO BID [facility] Last Admin: 12/03/17 09:18 Dose: 1,000 unit Cilostazol (Pletal) 100 mg PO BID [facility] Last Admin: 12/03/17 09:17 Dose: 100 mg Citalopram Hydrobromide (Celexa) 10 mg PO DAILY [facility] Last Admin: 12/03/17 09:18 Dose: 10 mg Clopidogrel Bisulfate (Plavix) 75 mg PO DAILY [facility] Last Admin: 12/03/17 09:18 Dose: 75 mg Cyclobenzaprine HCl (Flexeril) 10 mg PO TID [facility] Last Admin: 12/03/17 15:19 Dose: 10 mg Dextrose (D50w Syringe) 0 gm IV X1 PRN; Protocol PRN Reason: Hypoglycemia Enoxaparin Sodium (Lovenox) 40 mg SC DAILY@1000 [facility] Last Admin: 12/03/17 09:20 Dose: 40 mg Famotidine (Pepcid) 40 mg PO BID [facility] Last Admin: 12/03/17 09:19 Dose: 40 mg Gabapentin (Neurontin) 800 mg PO TIDCM [facility] Last Admin: 02/20/18 17:07 Dose: 800 mg Glipizide (Glucotrol) 5 mg PO DAILY@0730 [facility] Last Admin: 12/03/17 09:18 Dose: 5 mg Glucagon () 1 mg IM .X1 PRN PRN Reason: Hypoglycemia Hydroxyzine Pamoate (Vistaril) 25 mg PO 4X/DAY [facility] Last Admin: 12/03/17 17:07 Dose: 25 mg Ampicillin Sodium/Sulbactam (Sodium 3 gm/ Sodium Chloride) 112 mls @ 150 mls/hr IV Q6 [facility] Last Admin: 12/03/17 17:07 Dose: 150 mls/hr Isosorbide Mononitrate (Imdur) 30 mg PO DAILY [facility] Last Admin: 12/03/17 09:18 Dose: 30 mg Lisinopril (Zestril) 2.5 mg PO DAILY [facility] Last Admin: 12/03/17 09:16 Dose: 2.5 mg Magnesium Hydroxide (Milk Of Magnesia) 30 ml PO DAILY PRN PRN PRN Reason: Constipation Metoprolol Succinate (Toprol Xl (Beta Delia)) 25 mg PO DAILY [facility] Last Admin: 12/03/17 09:17 Dose: 25 mg Nitroglycerin (Nitrostat) 0.4 mg SUBLINGUAL Q5M PRN PRN Reason: Chest Pain Oxybutynin Chloride (Ditropan) 5 mg PO DAILY [facility] Last Admin: 12/03/17 09:19 Dose: 5 mg Oxycodone HCl (Oxyir) 5 mg PO BID PRN PRN PRN Reason: SEVERE PAIN (6-10/10) Last Admin: 12/03/17 15:20 Dose: 5 mg Pantoprazole Sodium (Protonix) 40 mg PO BID [facility] Last Admin: 12/03/17 09:18 Dose: 40 mg Assessment/Plan Active and Suspected Problems (Last Updated 09/24/17 @ 09:54 by Fede Montero, PSYCHOTHERAPIST COUNSELOR-C) Cat bite of hand (Acute) 1. Right hand infection from cat bite; continue on IV Unasyn. 2. CAD s/p PTCA with stenting; reports no symptoms of angina or heart failure . 3. Diabetes type 2;he is on Glipizide. Code Visit Inpatient E&M: 03297 Subs Hosp L2
--- NOTE | 2017-12-03 17:14 | PN_ITS ---
Patient Problems: Active and Suspected Problems (Last Updated 09/24/17 @ 09:54 by Fede Montero NP- C) Cat bite of hand (Acute) Subjective: CC: Right hand infection Vitals/I&O's: Vital Signs Temp Pulse Resp BP Pulse Ox 98.1 F 80 16 118/73 97 12/03/17 15:17 12/03/17 15:17 12/03/17 15:17 12/03/17 15:17 12/03/17 15:17 Oxygen Delivery Method Room Air Weight: 119.748 kg Body Mass Index (BMI) 32.1 Intake and Output for Last 24 Hours 12/01/17 12/02/17 12/03/17 23:59 23:59 23:59 Intake Total 2201 / 2201 Output Total 2250 / 2250 Balance -49 / -49 Laboratory Results 12/02/17 21:52: POC Glucose 227 H 12/03/17 06:03: POC Glucose 110 12/03/17 11:59: POC Glucose 133 H Current Medications Atorvastatin Calcium (Lipitor) 80 mg PO QHS [facility] Last Admin: 12/02/17 21:21 Dose: 80 mg Cholecalciferol (Vitamin D) 1,000 unit PO BID [facility] Last Admin: 12/03/17 09:18 Dose: 1,000 unit Cilostazol (Pletal) 100 mg PO BID [facility] Last Admin: 12/03/17 09:17 Dose: 100 mg Citalopram Hydrobromide (Celexa) 10 mg PO DAILY [facility] Last Admin: 12/03/17 09:18 Dose: 10 mg Clopidogrel Bisulfate (Plavix) 75 mg PO DAILY [facility] Last Admin: 12/03/17 09:18 Dose: 75 mg Cyclobenzaprine HCl (Flexeril) 10 mg PO TID [facility] Last Admin: 12/03/17 15:19 Dose: 10 mg Dextrose (D50w Syringe) 0 gm IV X1 PRN; Protocol PRN Reason: Hypoglycemia Enoxaparin Sodium (Lovenox) 40 mg SC DAILY@1000 [facility] Last Admin: 12/03/17 09:20 Dose: 40 mg Famotidine (Pepcid) 40 mg PO BID [facility] Last Admin: 12/03/17 09:19 Dose: 40 mg Gabapentin (Neurontin) 800 mg PO TIDCM [facility] Last Admin: 02/20/18 17:07 Dose: 800 mg Glipizide (Glucotrol) 5 mg PO DAILY@0730 [facility] Last Admin: 12/03/17 09:18 Dose: 5 mg Glucagon () 1 mg IM .X1 PRN PRN Reason: Hypoglycemia Hydroxyzine Pamoate (Vistaril) 25 mg PO 4X/DAY [facility] Last Admin: 12/03/17 17:07 Dose: 25 mg Ampicillin Sodium/Sulbactam (Sodium 3 gm/ Sodium Chloride) 112 mls @ 150 mls/ hr IV Q6 [facility] Last Admin: 12/03/17 17:07 Dose: 150 mls/hr Isosorbide Mononitrate (Imdur) 30 mg PO DAILY [facility] Last Admin: 12/03/17 09:18 Dose: 30 mg Lisinopril (Zestril) 2.5 mg PO DAILY [facility] Last Admin: 12/03/17 09:16 Dose: 2.5 mg Magnesium Hydroxide (Milk Of Magnesia) 30 ml PO DAILY PRN PRN PRN Reason: Constipation Metoprolol Succinate (Toprol Xl (Beta Delia)) 25 mg PO DAILY [facility] Last Admin: 12/03/17 09:17 Dose: 25 mg Nitroglycerin (Nitrostat) 0.4 mg SUBLINGUAL Q5M PRN PRN Reason: Chest Pain Oxybutynin Chloride (Ditropan) 5 mg PO DAILY [facility] Last Admin: 12/03/17 09:19 Dose: 5 mg Oxycodone HCl (Oxyir) 5 mg PO BID PRN PRN PRN Reason: SEVERE PAIN (6-10/10) Last Admin: 12/03/17 15:20 Dose: 5 mg Pantoprazole Sodium (Protonix) 40 mg PO BID [facility] Last Admin: 12/03/17 09:18 Dose: 40 mg Assessment/Plan Active and Suspected Problems (Last Updated 09/24/17 @ 09:54 by Fede Montero, MEDICAL BILLING ASSISTANT- C) Cat bite of hand (Acute) 1. Right hand infection from cat bite; continue on IV Unasyn. 2. CAD s/p PTCA with stenting; reports no symptoms of angina or heart failure . 3. Diabetes type 2;he is on Glipizide. Code Visit Inpatient E&M: 24479 Subs Hosp L2
[2017-12-03 17:21] LABS: Bedside Glucose 131 mg/dL (70-110)
[2017-12-03 20:07] VITALS: BP 123/76; PULSE 76; RESP 16; TEMP 36.9; O2SAT 97
[2017-12-03] MEDS: Atorvastatin Calcium 80 MG Tablet PO (21:17)
[2017-12-03 21:26] LABS: Bedside Glucose 120 mg/dL (70-110)
[2017-12-04] VITALS (7 sets, daily range): BP systolic 121–132; BP diastolic 72–94; PULSE 91–115; RESP 16–18; TEMP 36.6–36.9; O2SAT 96–99
[2017-12-04 06:25] LABS: Hemoglobin 13.2 g/dl (13.0-16.5); Mean Corp Hgb Conc 33.8 g/gl (32-36); Mean Corpuscular Hgb 30.7 pg (27.0-32.0); Mean Corpuscular Volume 90.7 fL (80-94); Mean Platelet Vol. 10.4 fl (6.2-12.0); Platelet Count 239 K/mm3 (150-450); RBC Distribution Width CV 13.6 % (11.6-14.6); RBC Distribution Width SD 44.1 fl (35.1-43.9); White Blood Count 7.6 K/mm3 (4.4-11.0)
[2017-12-04 06:52] LABS: Scan Indicated on CBC? Y/N NO
[2017-12-04 06:57] LABS: Erythrocyte Sedimentation Rate 38 mm/hr (0-15)
[2017-12-04 06:58] LABS: Anion Gap 9 (5-15); BUN 10 mg/dL (7-18); BUN/Creat Ratio 10.9 RATIO (10-20); Calcium,Total 8.9 mg/dL (8.5-10.1); Chloride 103 mmol/L (98-107); Creatinine, Serum 0.92 mg/dL (0.70-1.30); EST Glomerular Filtration Rate 94 mL/min (>60); Est Glom Filt Rate - Afr Amer 113 mL/min (>60); Estimated Creatinine Clearance 123.18 ml/min; Glucose 129 mg/dL (74-106); Potassium 4.1 mmol/L (3.5-5.1); Prealbumin 17.2 mg/dL (20.0-40.0); Sodium Level 136 mmol/L (136-145)
[2017-12-04 07:16] LABS: Bedside Glucose 135 mg/dL (70-110)
--- NOTE | 2017-12-04 08:17 | CT_ITS ---
STUDY: CT SCAN HAND RIGHT REASON FOR EXAM: Male, 46 years old. Soft tissue swelling and erythema following a cat bite. RADIATION DOSAGE (If Supplied By Facility): CTDIvol = ( 24.58 ) mGy, DLP = ( 677.38 ) mGycm. Individualized dose optimization techniques were used for this CT.? TECHNIQUE: Multiple axial tomographic images were obtained without intravenous contrast administration. Coronal and sagittal reconstruction was obtained as well. COMPARISON: Comparison is made with prior radiograph dated December 02, 2017. FINDINGS: There is evidence of skin thickening along the palmar aspect of the hand. Mild degree of increased markings in the subcutaneous fat suggestive of a mild edematous change. No focal abscess or fluid collection is seen. The bony structures are unremarkable. CT/Extremity Upper without Contra IMPRESSION: Skin thickening and soft tissue swelling. No focal abscess or fluid collection is seen. Electronically Signed: Aroldo Zelaya MD at 9:25 EST Tel [phone], Service support ,
[2017-12-04] MEDS: Gabapentin 800 MG Tablet PO ×2 (08:23→11:56)
--- NOTE | 2017-12-04 09:20 | PCA ---
pt off floor
[2017-12-04] MEDS: Citalopram 10 MG Tablet PO (09:43)
[2017-12-04] MEDS: Isosorbide Mononitrate 30 MG Tablet PO (09:44)
[2017-12-04] MEDS: Oxybutynin 5 MG Tablet PO (09:44)
[2017-12-04] MEDS: Famotidine 20 MG Tablet 40 MG PO (09:45)
[2017-12-04] MEDS: Enoxaparin 40 MG/0.4 ML Syringe SC (09:46)
[2017-12-04] MEDS: Clopidogrel Bisulfate 75 MG Tablet PO (09:47)
[2017-12-04] MEDS: Cilostazol 50 MG Tablet 100 MG PO (09:47)
[2017-12-04] MEDS: Pantoprazole Sodium 40 MG Tablet PO (09:48)
[2017-12-04] MEDS: Metoprolol(XL)Succ 25 MG Tablet PO (09:48)
[2017-12-04] MEDS: Lisinopril 2.5 MG Tablet PO (09:50)
--- NOTE | 2017-12-04 11:53 | DCINST_ITS ---
- Discharge Diagnoses Current Active Problems: Current Active and Chronic Problems (Last Updated 09/24/17 @ 09:54 by Fede Montero RADIOLOGY ORDERLY-C) Cellulitis of right hand (Acute) Smoker (Chronic) Cat bite of right hand (Acute) Cat bite (Acute) cat bite ulnar aspect right palm Cat bite of hand (Acute) You will use the following diet at home:: Calorie/Carbohydrate Controlled ( specify 1200, 1400, etc) Discharge Activity: Return to Normal Activity Allergies/Adverse Reactions: Allergies acetaminophen [From Tylenol] Allergy (Verified 12/02/17 15:35) Angioedema aspirin Allergy (Verified 12/02/17 15:35) Anaphylaxis ibuprofen [From Motrin] Allergy (Verified 12/02/17 15:35) Anaphylaxis metformin Allergy (Verified 12/02/17 15:35) Swelling pollen extracts Allergy (Verified 12/02/17 15:35) Hives morphine Adverse Reaction (Verified 12/02/17 15:35) Other REDDNESS AND ITCHING TO IV SITE Medications to take at Discharge Atorvastatin Calcium [Lipitor] 80 mg PO QHS 08/02/15 Citalopram [Celexa] 10 mg PO DAILY 08/02/15 Cyclobenzaprine [Flexeril] 10 mg PO TID 08/02/15 Gabapentin [Neurontin] 800 mg PO TID 08/02/15 Oxybutynin [Ditropan] 5 mg PO DAILY 08/02/15 Ranitidine [Zantac] 300 mg PO BID 08/02/15 Cholecalciferol (VIT D3) [Vitamin D3] 1,000 unit PO BID 08/17/15 B12/Levomefolate Calcium/B-6 [Foltx Tablet] 1 ea PO DAILY 11/17/15 Nitroglycerin [Nitrostat] 0.4 mg SUBLINGUAL Q5M PRN 11/17/15 Esomeprazole Mag Trihydrate [Nexium] 40 mg PO BID 03/05/16 Oxycodone [Oxyir] 5 mg PO BID PRN PRN 03/05/16 clopidogrel 75 mg tablet 75 mg PO QDAY 09/25/17 Cilostazol 100 mg PO BID 12/02/17 GlipiZIDE [Glucotrol] 5 mg PO DAILY@0730 12/02/17 Hydroxyzine HCl 25 mg PO 4X/DAY 12/02/17 Isosorbide Mononitrate [Imdur] 30 mg PO DAILY 12/02/17 Lisinopril [Zestril] 2.5 mg PO DAILY 12/02/17 Metoprolol Succinate [Toprol Xl] 25 mg PO DAILY 12/02/17 Levofloxacin [Levaquin] 500 mg PO DAILY #7 tab 12/04/17 The following prescriptions were given: Levofloxacin [Levaquin] 500 mg PO DAILY #7 tab Primary Care Physician: Olivier Oates MD [Primary Care Provider] - In 1 Day Proposed Discharge Date: 12/04/17
--- NOTE | 2017-12-04 11:53 | PCM.DC.SUM ---
Discharge Date and Diagnosis - Problem List Patient Problems: Active and Suspected Problems (Last Updated 09/24/17 @ 09:54 by WILMAN Bell) Cellulitis of right hand (Acute) Cat bite of right hand (Acute) Cat bite (Acute) cat bite ulnar aspect right palm Date of Admission: 12/02/17 Date of Discharge: 12/04/17 - Primary Discharge Diagnosis Active and Suspected Problems (Last Updated 09/24/17 @ 09:54 by WILMAN Bell) Cellulitis of right hand (Acute) Cat bite of right hand (Acute) Cat bite (Acute) cat bite ulnar aspect right palm Cat bite of hand (Acute) - Secondary Discharge Diagnosis Chronic Problems (Last Updated 09/24/17 @ 09:54 by WILMAN Bell) Smoker (Chronic) Essential (primary) hypertension (Chronic) CAD (coronary artery disease) (Chronic) hx AMI 1 stent Seasonal allergies (Chronic) Overactive bladder (Chronic) spinal stenosis (Chronic) Hyperlipidemia (Chronic) Diabetes (Chronic) with diabetic neuropathy Hospital Course and Treatment Imaging Results: 12/04/17 08:17 CT UE [Extremity Upper without Contra] [CT] Urgent Operations: None, - Summary of Care Provided: The patient is a 46 year old male patient who presents to the ED three days after being bitten by his own cat at home. He was bit on his right hand and subsequently developed swelling of the left hand with redness and warmth along with increasing pain. He was found to have pustules on the ulnar side of the right hand. Wound was cleaned and dressed in the ED. on IV Unasyn and admitted to regular medical floor. Since swelling and erythema improved significantly with IV antibiotics. Dr. Adams assaulted but did not feel the patient needed incision and debridement since he improved with IV antibiotics. Culture grew gram-negative keyana possibly Pasteurella species. He was discharged on p.o. Levaquin based on sensitivities. Discharge Diet: No Restrictions Discharge Activity: Return to Normal Activity Home Medications: Medications to take at Discharge Atorvastatin Calcium [Lipitor] 80 mg PO QHS 08/02/15 Citalopram [Celexa] 10 mg PO DAILY 08/02/15 Cyclobenzaprine [Flexeril] 10 mg PO TID 08/02/15 Gabapentin [Neurontin] 800 mg PO TID 08/02/15 Oxybutynin [Ditropan] 5 mg PO DAILY 08/02/15 Ranitidine [Zantac] 300 mg PO BID 08/02/15 Cholecalciferol (VIT D3) [Vitamin D3] 1,000 unit PO BID 08/17/15 B12/Levomefolate Calcium/B-6 [Foltx Tablet] 1 ea PO DAILY 11/17/15 Nitroglycerin [Nitrostat] 0.4 mg SUBLINGUAL Q5M PRN 11/17/15 Esomeprazole Mag Trihydrate [Nexium] 40 mg PO BID 03/05/16 Oxycodone [Oxyir] 5 mg PO BID PRN PRN 03/05/16 clopidogrel 75 mg tablet 75 mg PO QDAY 09/25/17 Cilostazol 100 mg PO BID 12/02/17 GlipiZIDE [Glucotrol] 5 mg PO DAILY@0730 12/02/17 Hydroxyzine HCl 25 mg PO 4X/DAY 12/02/17 Isosorbide Mononitrate [Imdur] 30 mg PO DAILY 12/02/17 Lisinopril [Zestril] 2.5 mg PO DAILY 12/02/17 Metoprolol Succinate [Toprol Xl] 25 mg PO DAILY 12/02/17 Levofloxacin [Levaquin] 500 mg PO DAILY #7 tab 12/04/17 Following Prescrptions Were Given to Patient: Levofloxacin [Levaquin] 500 mg PO DAILY #7 tab Primary Care Physician: Olivier Oates MD [Primary Care Provider] - In 1 Day Disposition: Home Patient Condition:: Good Meaningful Use Info Meaningful Use Diagnoses (Choose all that apply): None applicable Code Visit Inpatient E&M: 37804 Disch Hosp
[2017-12-04 13:36] LABS: Bedside Glucose 215 mg/dL (70-110)
--- NOTE | 2017-12-04 14:13 | PCM.PN.SRG ---
Subjective: Patient is resting comfortably. Able to make a fist without difficulty. - Physical Exam General: Alert, Oriented x3 HEENT: PERRLA, EOMI Neck: Supple Lungs: Clear to auscultation Cardiovascular: Regular rate, Regular Rhythm Extremities: Edema - mild edema right upper extremity almost resolved. Skin: Ulcer/ Wound - - two pustular lesions on ulnar side of right hand. Subcutaneous tissue seen. Mild edemal right palm in area of cat bite wounds that is almost resolved. Some periwound redness that is almost resolved. Patient can make a fist. Flexion and extension of his fingers right hand are intact. Flexion and extension of small finger is nontender without evidence of tenosynovitis at this time. Wrist is nontender. Fingers are warm with good capillary refill. No redness on distal forearm. Radial pulses are palpable. No axillary adenopathy. The puncture bite wounds were packed lightly with Silver dressing. Lymphatic: - - no axillary adenopathy. Neurological: Cranial nerves II-XII grossly intact Psych/Mental Status: Normal Affect, Appropriate Vital Signs Temp Pulse Resp BP Pulse Ox 97.9 F 115 H 16 121/80 H 96 12/04/17 13:29 12/04/17 13:29 12/04/17 13:29 12/04/17 13:29 12/04/17 13:29 Oxygen Delivery Method Room Air Weight: 263 lb 15.986 oz Body Mass Index (BMI) 32.1 Intake and Output for Last 24 Hours 12/02/17 12/03/17 12/04/17 23:59 23:59 23:59 Intake Total 2801 / 2801 1578 / 1578 Output Total 3100 / 3100 3650 / 3650 Balance -299 / -299 -2072 / -2072 Laboratory Tests Past 24 Hrs 12/04/17 12/04/17 05:52 05:52 WBC 7.6 RBC 4.30 L Hgb 13.2 Hct 39.0 L MCV 90.7 MCH 30.7 MCHC 33.8 RDW 13.6 RDW Differential 44.1 H Plt Count 239 MPV 10.4 ESR 38 H Sodium 136 Potassium 4.1 Chloride 103 Carbon Dioxide 24.0 Anion Gap 9 BUN 10 Creatinine 0.92 Estim Creat Clear Calc 123.18 Est GFR (MDRD) Af Amer 113 Est GFR (MDRD) Non-Af 94 BUN/Creatinine Ratio 10.9 Glucose 129 H Calcium 8.9 C-React Prot Ext Range 14.70 H Prealbumin 17.2 L POC Glucose 12/04/17 12/04/17 12/03/17 11:59 07:08 21:15 POC Glucose 215 H 135 H 120 H 12/03/17 17:15 POC Glucose 131 H Diagnostic Data Hand X-Ray 12/02/17 16:23 IMPRESSION: No osseous injury identified. Soft tissue swelling overlying the fifth metacarpal. Electronically Signed: Guerline Johnson MD at 17:17 EST Tel , Service support , Upper Extremity CT 12/04/17 08:17 IMPRESSION: Skin thickening and soft tissue swelling. No focal abscess or fluid collection is seen. Electronically Signed: Aroldo Zelaya MD at 9:25 EST Tel [phone], Service support , Assessment/Plan 1. Cat bite wound infection ulnar aspect right palm with cellulitis, resolving. 2. Diabetes mellitus. 3. Smoker. CT reviewed. It showed evidence of skin thickening along the palmar aspect of the hand and mild degree of increased markings in the subcutaneous fat suggestive of a mild edematous change and no focal abscess or fluid collection was seen and the bony structures were unremarkable. Patient has been treated with IV Unasyn. Wound culture showed Sphingomonas paucimobilis and Anaerobes. The Unasyn was adequate for the Anaerobes. Will send him home on Levaquin for the Sphingomonas. Patient has good range of motion and will encourage to minimize stiffness. Redness and swelling have resolved. I packed the puncture wounds with a Silver dressing to act as a wick to allow drainage. Instructed the patient on daily dressing changes to the puncture wounds on the right palm with Aquacel Silver. It is important to keep the wound open to allow drainage. If the wound closes too soon, there is increased risk of infection. Prealbumin mildly low at 17.2. Encourage nutritional supplementation with protein to help the healing process. OK for discharge from my standpoint. Followup Dr. Adams one week. I will followup closely on a weekly basis until healed since cat bites can still become problematic several days later and may still require surgery even after discharge. If surgery is done, then [facility]. Encouraged the patient to stop smoking as it may have deleterious effects on wound healing.
== END 2017-12-04 14:52 | disposition home or self-care (01) | DRG 280 ==
LOC: ED 16:55 → MS3 19:31
PROVIDERS: Surgery; Admitting Provider Family Medicine; Emergency Provider Emergency Medicine; Family Provider Family Medicine; PCP Family Medicine; Visit Provider Internal Medicine
DX: S61.451A Open bite of right hand, initial encounter (principal); L03.113 Cellulitis of right upper limb; E11.40 Type 2 diabetes mellitus with diabetic neuropathy, unspecified; F17.200 Nicotine dependence, unspecified, uncomplicated; W55.01XA Bitten by cat, initial encounter; I25.10 Atherosclerotic heart disease of native coronary artery without angina pectoris; I25.2 Old myocardial infarction; Z95.5 Presence of coronary angioplasty implant and graft; E78.5 Hyperlipidemia, unspecified; N32.81 Overactive bladder; I10 Essential (primary) hypertension; M48.00 Spinal stenosis, site unspecified; Z79.84 Long term (current) use of oral hypoglycemic drugs; Z79.899 Other long term (current) drug therapy
CPT/HCPCS: 36415; 73130; 73200; 80048; 82962; 84134; 84484; 85025; 85027; 85652; 86140; 87040; 87070; 87075; 87077; 87186; 87205; 93005; 99285; 99406; J7030; A4216; J0295

== ENCOUNTER → 2017-12-13 13:14 | Outpatient (CLI) | payer MEDICAID, SELFPAY ==
[2017-12-13 13:17] LABS: Bacteria 0 SEEN /hpf (None Seen); Mucous, Urine 0 SEEN /hpf (<or=2+); Red Blood Cells-Urine 0 SEEN /hpf (0-5); Squamous Epithelial Cells - UA 0 SEEN /hpf (0-5)
[2017-12-13 16:10] LABS: Color, Urine Yellow (Yellow); Glucose, Dipstick 1000 mg/dl (Normal); Ketone-Dipstick Negative (Negative); Leukocyte Esterase-Dipstick Negative /ul (Negative); Nitrite-Dipstick Negative (Negative); Occult Blood-Urine Negative /ul (Negative); Protein-Dipstick Negative (Negative); Urine Bilirubin Dipstick Negative (Negative); Urine Clarity Clear (Clear); Urine Urobilinogen Normal (Normal)
[2017-12-13 16:18] LABS: White Blood Cells 0-5 SEEN /hpf (0-5)
== END ==
PROVIDERS: Family Provider Family Medicine; PCP Family Medicine; Visit Provider Family Medicine
DX: N32.81 Overactive bladder (principal); R32 Unspecified urinary incontinence
CPT/HCPCS: 81001; 87086

== ENCOUNTER 2018-03-07 21:38 | Inpatient (IN) | payer MEDICAID, SELFPAY ==
[2018-03-07] VITALS (7 sets, daily range): BP systolic 129–158; BP diastolic 88–116; PULSE 83–97; RESP 13–23; TEMP 36.6–36.9; O2SAT 99–100; BMI 39.7; BMI 33.5; BMI 33.6
--- NOTE | 2018-03-07 21:40 | RAD_ITS ---
XR Chest 1 View INDICATION: STEMIHX OF PREVIOUS [place] COMPARISON: None FINDINGS: Heart size and pulmonary vascularity are within normal limits. The lungs are clear without evidence of airspace consolidation or pleural effusion. The osseous structures are grossly unremarkable. RAD/Chest 1 View (Portable) IMPRESSION: No radiographic evidence of acute intrathoracic disease. at 2211 Reported and signed by: Amy Guardado MD Electronically Signed: Amy Guardado MD at 22:10 EDT Tel , Service support ,
--- NOTE | 2018-03-07 21:46 | EKG12_ITS ---
Test Reason : CP Blood Pressure : / mmHG Vent. Rate : 094 BPM Atrial Rate : 094 BPM P-R Int : 162 ms QRS Dur : 094 ms QT Int : 356 ms P-R-T Axes : 068 069 071 degrees QTc Int : 445 ms Normal sinus rhythm with sinus arrhythmia Inferior infarct , possibly acute ACUTE NM / STEMI Abnormal ECG Confirmed by YESSICA JONES, RENO ([id number]), news copy editor GRUPO MIJARES ([id number]) on 03/12/2018 1:57:00 PM Referred By: NITISH Confirmed By:RENO JUAN MD
[2018-03-07] MEDS: Heparin Injection (Vial) 5,000 UNIT/ML VIAL 5000 UNIT IV (21:51)
[2018-03-07] MEDS: Clopidogrel Bisulfate 300 MG Tablet PO (21:51)
[2018-03-07] MEDS: 0.9% Normal Saline 1,000 ML 999 ML IV ×2 (21:52→22:31)
[2018-03-07] MEDS: HYDROmorphone 0.5 MG/0.5 ML SYRINGE IV (21:52)
[2018-03-07] MEDS: Metoprolol Tartrate 5 MG/5 ML Vial IV (21:52)
[2018-03-07] MEDS: Ondansetron 4 MG/2 ML Vial IV (21:53)
[2018-03-07 22:00] LABS: Absolute Lymphocyte Count 2.58 X10^3/ul (0.83-4.51); Absolute Neutrophil Count 10.1 X10^3/uL (2.0-7.7); Basophil# 0.03 X10^3/uL; Basophil% 0.2 % (0-1); Eosinophil# 0.17 X10^3/uL; Eosinophils% 1.2 % (0-5); Hematocrit 45.9 % (40-54); Hemoglobin 15.4 g/dl (13.0-16.5); Lymphocyte # 2.58 X10^3/ul (4.0); Lymphocyte % 18.4 % (19-41); Mean Corp Hgb Conc 33.6 g/gl (32-36); Mean Corpuscular Hgb 31.4 pg (27.0-32.0); Mean Corpuscular Volume 93.7 fL (80-94); Mean Platelet Vol. 10.5 fl (6.2-12.0); Monocyte% 7.8 % (0-10); Neutrophil # 10.07 X10^3/uL (2.7-7.7); Neutrophil % 71.8 % (47-70); POSITIVE COUNT NO; POSITIVE DIFFERENTIAL NO; POSITIVE MORPHOLOGY NO; Platelet Count 252 K/mm3 (150-450); RBC Distribution Width CV 13.6 % (11.6-14.6); RBC Distribution Width SD 46.3 fl (35.1-43.9)
[2018-03-07 22:10] LABS: Anion Gap 10 (5-15); BUN 11 mg/dL (7-18); BUN/Creat Ratio 6.6 RATIO (10-20); Calcium,Total 9.8 mg/dL (8.5-10.1); Chloride 107 mmol/L (98-107); Creatinine, Serum 1.67 mg/dL (0.70-1.30); EST Glomerular Filtration Rate 47 mL/min (>60); Est Glom Filt Rate - Afr Amer 57 mL/min (>60); Estimated Creatinine Clearance 56.46 ml/min; Glucose 179 mg/dL (74-106); Potassium 4.2 mmol/L (3.5-5.1); Sodium Level 140 mmol/L (136-145)
--- NOTE | 2018-03-07 22:16 | HP.PCM_ITS ---
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 He has sudden onset of left sided chest pain. Pain was severe and crushing. Nothing made it better or worse. Pain occurred when he was outside doing yard work. Pain was associated with SOB and diaphoresis. Paramedics called and workup disclosed STEMI. He was taken to [facility]. 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 (Chronic) Aortic root dilatation (Chronic) Atherosclerotic heart disease of [place] coronary artery with angina pectoris with documented spasm (Chronic) Presence of coronary angioplasty implant and graft (Chronic) PTCA with BMS to RCA 11/24; C w/PCI of RCA Acute ST segment elevation [place] (Chronic) Smoker (Chronic) Essential (primary) hypertension (Chronic) CAD (coronary artery disease) (Chronic) hx AMI 1 stent Seasonal allergies (Chronic) Overactive bladder (Chronic) spinal stenosis (Chronic) Hyperlipidemia (Chronic) Diabetes (Chronic) with diabetic neuropathy Allergies acetaminophen [From Tylenol] Allergy (Verified 03/07/18 21:50) Angioedema aspirin Allergy (Verified 03/07/18 21:50) Anaphylaxis ibuprofen [From Motrin] Allergy (Verified 03/07/18 21:50) Anaphylaxis metformin Allergy (Verified 03/07/18 21:50) Swelling pollen extracts Allergy (Verified 03/07/18 21:50) Hives caffeine [From Excedrin Migraine] Adverse Reaction (Severe, Verified 03/07/18 21 :50) Face swelling morphine Adverse Reaction (Verified 03/07/18 21:50) Other REDDNESS AND ITCHING TO IV SITE Home Medications: Ambulatory Orders Medication Instructions Recorded Citalopram [Celexa] 10 mg PO DAILY 08/02/15 Cyclobenzaprine [Flexeril] 10 mg PO TID 08/02/15 Oxybutynin [Ditropan] 5 mg PO DAILY 08/02/15 Ranitidine [Zantac] 300 mg PO BID 08/02/15 Cholecalciferol (VIT D3) [Vitamin 1,000 unit PO BID 08/17/15 D3] B12/Levomefolate Calcium/B-6 1 ea PO DAILY 11/17/15 [Foltx Tablet] Nitroglycerin [Nitrostat] 0.4 mg SUBLINGUAL Q5M PRN 11/17/15 Esomeprazole Mag Trihydrate 40 mg PO BID 03/05/16 [Nexium] Cilostazol 100 mg PO BID 12/02/17 Hydroxyzine HCl 25 mg PO 4X/DAY 12/02/17 Isosorbide Mononitrate [Imdur] 30 mg PO DAILY 12/02/17 atorvastatin 80 mg tablet 80 mg PO QHS #30 tab 01/21/18 clopidogrel 75 mg tablet 75 mg PO QDAY #90 tab 01/21/18 gabapentin 600 mg tablet 600 mg PO TID tab 01/23/18 glipizide ER 2.5 mg tablet, 2.5 mg PO QDAY 01/23/18 extended release 24 hr metoprolol succinate ER 25 mg 25 mg PO DAILY #90 tab 01/23/18 tablet,extended release 24 hr Lisinopril [Zestril] 2.5 mg PO QDAY 03/07/18 Surgical History: angioplasty, cholecystectomy, - - 3 hernia,both knees,spinal injections, 1 stent in his heart Psychiatric History: Anxiety, Depression Smoking Status: Current every day smoker - *Family History Paternal History Items: Heart Disease Maternal History Items: - - mother with cirrhosis, kidney disease Sibling History Items: - - ca Review of Systems Constitutional: Denies: Chills, Fever, Weight Change HEENT: Denies: Head Aches, Sinus Congestion, Sinus Drainage Cardiovascular: Reports: Chest Pain, Heaviness, Palpitations Respiratory: Denies: Cough, Shortness of breath at rest, Sputum production Gastrointestinal: Denies: Abdominal Pain, Nausea, Vomiting Genitourinary: Denies: Dysuria Musculoskeletal: Denies: Joint Pain, Joint Tenderness Skin: Denies: Rash, Wounds Neurological: Denies: Numbness, Tingling, Focal weakness Psychiatric: Denies: Anxiety, Depression, Homicidal Ideations, Suicidal Ideations Hematologic/ Lymphatic: Denies: Easy Bruising, Easy Bleeding VTE Information - Inpt Only VTE Present on Admission: No VTE Mechan Device Prophylaxis: SCD's VTE Pharm Prophylaxis ordered?: Yes Patient Problems: Active and Suspected Problems (Last Updated 01/21/18 @ 12:36 by Jaye Loco) STEMI (ST elevation myocardial infarction) (Acute) - Physical Exam General: Alert, Oriented x3, Cooperative HEENT: Atraumatic, PERRLA, EOMI, Normocephalic Neck: Supple, No JVD, Negative Carotid Bruits Lungs: Clear to auscultation, Normal air movement Cardiovascular: Regular rate, No murmurs Abdomen: Bowel Sounds Present, Soft, Non Tender Extremities: No edema, Capillary Refill Less than 3 Seconds Skin: No rashes, No breakdown Musculoskeletal: No Tenderness to Palpation of Joints or Extremities Neurological: Cranial nerves II-XII grossly intact Psych/Mental Status: Normal Affect, Appropriate Vital Signs Temp Pulse Resp BP Pulse Ox 98.1 F 83 13 158/116 H 99 03/07/18 21:46 03/07/18 21:59 03/07/18 21:59 03/07/18 21:59 03/07/18 21:59 Oxygen Flow Rate (L/min) 4 Oxygen Delivery Method Nasal Cannula Weight: 125.6 kg Body Mass Index (BMI) 39.7 Finger Stick Blood Glucose 127 Laboratory Tests Past 24 Hrs 03/07/18 03/07/18 03/07/18 21:47 21:47 21:47 WBC 14.0 H RBC 4.90 Hgb 15.4 Hct 45.9 MCV 93.7 MCH 31.4 MCHC 33.6 RDW 13.6 RDW Differential 46.3 H Plt Count 252 MPV 10.5 Immature Gran % (Auto) 0.600 Neut % (Auto) 71.8 H Lymph % (Auto) 18.4 L [place] % (Auto) 7.8 Eos % (Auto) 1.2 Baso % (Auto) 0.2 Absolute Neuts (auto) 10.1 H Absolute Lymphs (auto) 2.58 Total Counted Not Reportable PT Cancelled INR Cancelled APTT Cancelled Sodium 140 Potassium 4.2 Chloride 107 Carbon Dioxide 23.0 Anion Gap 10 BUN 11 Creatinine 1.67 H Estim Creat Clear Calc 56.46 Est GFR (MDRD) Af Amer 57 L Est GFR (MDRD) Non-Af 47 L BUN/Creatinine Ratio 6.6 L Glucose 179 H Calcium 9.8 Troponin I < 0.015 Assessment/Plan Active and Suspected Problems (Last Updated 01/21/18 @ 12:36 by Jaye Loco) STEMI (ST elevation myocardial infarction) (Acute) 47 year old male w/ h/o CAD, DMII, HTN, lipidemia, and tobacco abuse admitted for STEMI. 1) STEMI: S/p TA RCA secondary to in-stent thrombosis. This is third stent. The secondary one was done last year in July when a BMS was placed. C/w Pletal, integrilin, and brilinta Probably will need ASA desensitization outpt. Followed by cards. 2) CAD: C/w medical management. 3) Tobacco abuse: Quitted several months ago. C/w cessation. 4) Chronic issues: DMII, lipidemia, and HTN: C/w home meds. Monitor.
--- NOTE | 2018-03-07 23:48 | PCM.CONS.C ---
Problem List (1) STEMI (ST elevation myocardial infarction) Status: Acute Qualifiers: Involved coronary artery: right coronary artery Qualified Code(s): I21.11 - ST elevation (STEMI) myocardial infarction involving right coronary artery Reason for Consult Date of Consultation: 03/07/18 History of Present Illness: The patient is a 47 year old M with past medical history significant for coronary artery disease, hypertension and dyslipidemia. He presented to the emergency room with complaints of anterior chest discomfort. Positive diaphoresis. Positive associated shortness of breath. An EKG was done. This showed acute inferior ST elevation myocardial infarction. Subsequently a STEMI alert was called. Patient has previous history of coronary artery disease with ST elevation myocardial infarction involving the proximal right coronary artery in July of last year. He went prior to that, he has had stent placed to the artery in 2009. The patient has history of true allergy to aspirin with anaphylaxis. He has had bare-metal stents placed last time. Patient reports compliance with his medications. According to him, he quit smoking couple of months ago. [] Past Medical History Allergies/Adverse Reactions: Allergies acetaminophen [From Tylenol] Allergy (Verified 03/07/18 21:50) Angioedema aspirin Allergy (Verified 03/07/18 21:50) Anaphylaxis ibuprofen [From Motrin] Allergy (Verified 03/07/18 21:50) Anaphylaxis metformin Allergy (Verified 03/07/18 21:50) Swelling pollen extracts Allergy (Verified 03/07/18 21:50) Hives caffeine [From Excedrin Migraine] Adverse Reaction (Severe, Verified 03/07/18 21:50) Face swelling morphine Adverse Reaction (Verified 03/07/18 21:50) Other REDDNESS AND ITCHING TO IV SITE Home Medications: Ambulatory Orders Medication Instructions Recorded Citalopram [Celexa] 10 mg PO DAILY 08/02/15 Cyclobenzaprine [Flexeril] 10 mg PO TID 08/02/15 Oxybutynin [Ditropan] 5 mg PO DAILY 08/02/15 Ranitidine [Zantac] 300 mg PO BID 08/02/15 Cholecalciferol (VIT D3) [Vitamin 1,000 unit PO BID 08/17/15 D3] B12/Levomefolate Calcium/B-6 1 ea PO DAILY 11/17/15 [Foltx Tablet] Nitroglycerin [Nitrostat] 0.4 mg SUBLINGUAL Q5M PRN 11/17/15 Esomeprazole Mag Trihydrate 40 mg PO BID 03/05/16 [Nexium] Cilostazol 100 mg PO BID 12/02/17 Hydroxyzine HCl 25 mg PO 4X/DAY 12/02/17 Isosorbide Mononitrate [Imdur] 30 mg PO DAILY 12/02/17 atorvastatin 80 mg tablet 80 mg PO QHS #30 tab 01/21/18 clopidogrel 75 mg tablet 75 mg PO QDAY #90 tab 01/21/18 gabapentin 600 mg tablet 600 mg PO TID tab 01/23/18 glipizide ER 2.5 mg tablet, 2.5 mg PO QDAY 01/23/18 extended release 24 hr metoprolol succinate ER 25 mg 25 mg PO DAILY #90 tab 01/23/18 tablet,extended release 24 hr Lisinopril [Zestril] 2.5 mg PO QDAY 03/07/18 Past Medical History (Chronic Problems): Chronic Problems (Last Updated 01/21/18 @ 12:36 by Jaye Loco) Smoker (Chronic) Coronary angioplasty status (Chronic) Nicotine abuse (Chronic) Left atrial enlargement (Chronic) Other intermediate (current) drug therapy (Chronic) Aortic root dilatation (Chronic) Atherosclerotic heart disease of [place] coronary artery with angina pectoris with documented spasm (Chronic) Presence of coronary angioplasty implant and graft (Chronic) PTCA with BMS to RCA 11/24; [facility] w/PCI of RCA Acute ST segment elevation [place] (Chronic) Smoker (Chronic) Essential (primary) hypertension (Chronic) CAD (coronary artery disease) (Chronic) hx AMI 1 stent Seasonal allergies (Chronic) Overactive bladder (Chronic) spinal stenosis (Chronic) Hyperlipidemia (Chronic) Diabetes (Chronic) with diabetic neuropathy Surgical History: angioplasty, cholecystectomy, - - 3 hernia,both knees,spinal injections, 1 stent in his heart Psychiatric History: Anxiety, Depression - *Family History Paternal Family History: Family History (Last Reviewed 01/23/18 @ 10:08 by Lizzie Galindo) Grandfather CAD (coronary artery disease) Father CAD (coronary artery disease) Hypertension Heart disease Myocardial infarction, Onset Age: 37 Brother CAD (coronary artery disease) Hypertension Hyperlipemia Grandmother Hyperlipemia Heart disease Diabetes Sister Cancer Other Colon cancer History Items: Heart Disease Maternal Family History: Family History (Last Reviewed 01/23/18 @ 10:08 by Lizzie Galindo) Grandfather CAD (coronary artery disease) Father CAD (coronary artery disease) Hypertension Heart disease Myocardial infarction, Onset Age: 37 Brother CAD (coronary artery disease) Hypertension Hyperlipemia Grandmother Hyperlipemia Heart disease Diabetes Sister Cancer Other Colon cancer History Items: - - mother with cirrhosis, kidney disease Sibling Family History: Family History (Last Reviewed 01/23/18 @ 10:08 by Lizzie Galindo) Grandfather CAD (coronary artery disease) Father CAD (coronary artery disease) Hypertension Heart disease Myocardial infarction, Onset Age: 37 Brother CAD (coronary artery disease) Hypertension Hyperlipemia Grandmother Hyperlipemia Heart disease Diabetes Sister Cancer Other Colon cancer History Items: - - ca Smoking Status: Current some day smoker Review of Systems - Review of Systems General: Denies: Fever, Chills, Weight Loss HEENT: Denies: Vision Change, Head Aches Cardiovascular: Reports: Chest Discomfort, Chest Discomfort at Rest, Shortness of Breath. Denies: Orthopnea, PND, Palpitations Respiratory: Denies: Cough, Hemoptysis Gastrointestinal: Denies: Abdominal Discomfort, Jaundice, Nausea, Hematemesis, Melena Muscoloskeletal: Denies: Myalgias Neurological: Denies: History of TIA, History of CVA Psychiatric: Denies: Anxiety, Depression Endocrine: Denies: Heat Intolerance, Cold Intolerance Hematologic/ Lymphatic: Denies: Anemia, Easy Brusing, Easy Bleeding Subjectve: Appears anxious. In acute distress. Diaphoretic Objective: Vital Signs Temp Pulse Resp BP Pulse Ox 98.2 F 97 23 H 158/111 H 99 03/07/18 22:26 03/07/18 22:26 03/07/18 22:26 03/07/18 22:26 03/07/18 22:26 General: Awake, Alert, Oriented x 3, In Acute Distress HEENT: Atraumatic, Normocephalic Oral: Moist Mucosa Neck: Supple, No JVD Lungs: Clear to auscultation Cardiovascular: Regular Rhythm, Normal S1, Normal S2 Abdomen: Bowel Sounds Present, Soft Extremities: No Cyanosis, No edema Neurological: No Focal Motor or Sensory Deficit Psych/Mental Status: Appropriate Rhythm: Normal sinus rhythm EKG: Normal sinus rhythm. ST elevation consistent with acute inferior myocardial infarction Assessment/Plan 1. Acute inferior myocardial infarction. Patient was advised emergent coronary angiography and possible revascularization. After informed consent, cardiac catheterization and coronary angiography was done. Coronary angiography revealed totally occluded proximal right coronary artery with in-stent thrombosis. Balloon angioplasty was performed. This was followed by aspiration thrombectomy. Some distal embolization of the clot was noted in the right posterior descending artery which was treated with balloon angioplasty. Clot embolization in the right posterior lateral ventricular branch was also treated with balloon angioplasty. The culprit lesion was also noted to have in-stent restenosis. A 4.0 x 33 mm resolute integrity drug-eluting stent was therefore deployed. This was postdilated under high pressures. Proximal part of the stent was postdilated using a 4.5 mm balloon. Post IVUS revealed excellent stent apposition 2. Start patient on Brilinta. Stop clopidogrel. Patient has true allergy to aspirin. Continue Pletal. I would recommend continuing Brilinta and Pletal for this patient lifelong. As an outpatient at a later stage, consider aspirin desensitization 3. Overall left ventricular systolic function was normal X 4. Lipid management as per internal medicine 5. Diabetes mellitus 6. History of hypertension
--- NOTE | 2018-03-07 23:59 | CON.PCM_ITS ---
Problem List (1) STEMI (ST elevation myocardial infarction) Status: Acute Qualifiers: Involved coronary artery: right coronary artery Qualified Code(s): I21.11 - ST elevation (STEMI) myocardial infarction involving right coronary artery Reason for Consult Date of Consultation: 03/07/18 History of Present Illness: The patient is a 47 year old M with past medical history significant for coronary artery disease, hypertension and dyslipidemia. He presented to the emergency room with complaints of anterior chest discomfort. Positive diaphoresis. Positive associated shortness of breath. An EKG was done. This showed acute inferior ST elevation myocardial infarction. Subsequently a STEMI alert was called. Patient has previous history of coronary artery disease with ST elevation myocardial infarction involving the proximal right coronary artery in July of last year. He went prior to that, he has had stent placed to the artery in 2009. The patient has history of true allergy to aspirin with anaphylaxis. He has had bare-metal stents placed last time. Patient reports compliance with his medications. According to him, he quit smoking couple of months ago. [] Past Medical History Allergies/Adverse Reactions: Allergies acetaminophen [From Tylenol] Allergy (Verified 03/07/18 21:50) Angioedema aspirin Allergy (Verified 03/07/18 21:50) Anaphylaxis ibuprofen [From Motrin] Allergy (Verified 03/07/18 21:50) Anaphylaxis metformin Allergy (Verified 03/07/18 21:50) Swelling pollen extracts Allergy (Verified 03/07/18 21:50) Hives caffeine [From Excedrin Migraine] Adverse Reaction (Severe, Verified 03/07/18 21 :50) Face swelling morphine Adverse Reaction (Verified 03/07/18 21:50) Other REDDNESS AND ITCHING TO IV SITE Home Medications: Ambulatory Orders Medication Instructions Recorded Citalopram [Celexa] 10 mg PO DAILY 08/02/15 Cyclobenzaprine [Flexeril] 10 mg PO TID 08/02/15 Oxybutynin [Ditropan] 5 mg PO DAILY 08/02/15 Ranitidine [Zantac] 300 mg PO BID 08/02/15 Cholecalciferol (VIT D3) [Vitamin 1,000 unit PO BID 08/17/15 D3] B12/Levomefolate Calcium/B-6 1 ea PO DAILY 11/17/15 [Foltx Tablet] Nitroglycerin [Nitrostat] 0.4 mg SUBLINGUAL Q5M PRN 11/17/15 Esomeprazole Mag Trihydrate 40 mg PO BID 03/05/16 [Nexium] Cilostazol 100 mg PO BID 12/02/17 Hydroxyzine HCl 25 mg PO 4X/DAY 12/02/17 Isosorbide Mononitrate [Imdur] 30 mg PO DAILY 12/02/17 atorvastatin 80 mg tablet 80 mg PO QHS #30 tab 01/21/18 clopidogrel 75 mg tablet 75 mg PO QDAY #90 tab 01/21/18 gabapentin 600 mg tablet 600 mg PO TID tab 01/23/18 glipizide ER 2.5 mg tablet, 2.5 mg PO QDAY 01/23/18 extended release 24 hr metoprolol succinate ER 25 mg 25 mg PO DAILY #90 tab 01/23/18 tablet,extended release 24 hr Lisinopril [Zestril] 2.5 mg PO QDAY 03/07/18 Past Medical History (Chronic Problems): Chronic Problems (Last Updated 01/21/18 @ 12:36 by Jaye Loco) Smoker (Chronic) Coronary angioplasty status (Chronic) Nicotine abuse (Chronic) Left atrial enlargement (Chronic) 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) Aortic root dilatation (Chronic) Atherosclerotic heart disease of [place] coronary artery with angina pectoris with documented spasm (Chronic) Presence of coronary angioplasty implant and graft (Chronic) PTCA with BMS to RCA 11/24; [facility] w/PCI of RCA Acute ST segment elevation MD (Chronic) Smoker (Chronic) Essential (primary) hypertension (Chronic) CAD (coronary artery disease) (Chronic) hx AMI 1 stent Seasonal allergies (Chronic) Overactive bladder (Chronic) spinal stenosis (Chronic) Hyperlipidemia (Chronic) Diabetes (Chronic) with diabetic neuropathy Surgical History: angioplasty, cholecystectomy, - - 3 hernia,both knees,spinal injections, 1 stent in his heart Psychiatric History: Anxiety, Depression - *Family History Paternal Family History: Family History (Last Reviewed 01/23/18 @ 10:08 by Lizzie Galindo) Grandfather CAD (coronary artery disease) Father CAD (coronary artery disease) Hypertension Heart disease Myocardial infarction, Onset Age: 37 Brother CAD (coronary artery disease) Hypertension Hyperlipemia Grandmother Hyperlipemia Heart disease Diabetes Sister Cancer Other Colon cancer History Items: Heart Disease Maternal Family History: Family History (Last Reviewed 01/23/18 @ 10:08 by Lizzie Galindo) Grandfather CAD (coronary artery disease) Father CAD (coronary artery disease) Hypertension Heart disease Myocardial infarction, Onset Age: 37 Brother CAD (coronary artery disease) Hypertension Hyperlipemia Grandmother Hyperlipemia Heart disease Diabetes Sister Cancer Other Colon cancer History Items: - - mother with cirrhosis, kidney disease Sibling Family History: Family History (Last Reviewed 01/23/18 @ 10:08 by Lizzie Galindo) Grandfather CAD (coronary artery disease) Father CAD (coronary artery disease) Hypertension Heart disease Myocardial infarction, Onset Age: 37 Brother CAD (coronary artery disease) Hypertension Hyperlipemia Grandmother Hyperlipemia Heart disease Diabetes Sister Cancer Other Colon cancer History Items: - - ca Smoking Status: Current some day smoker Review of Systems - Review of Systems General: Denies: Fever, Chills, Weight Loss HEENT: Denies: Vision Change, Head Aches Cardiovascular: Reports: Chest Discomfort, Chest Discomfort at Rest, Shortness of Breath. Denies: Orthopnea, PND, Palpitations Respiratory: Denies: Cough, Hemoptysis Gastrointestinal: Denies: Abdominal Discomfort, Jaundice, Nausea, Hematemesis, Melena Muscoloskeletal: Denies: Myalgias Neurological: Denies: History of TIA, History of CVA Psychiatric: Denies: Anxiety, Depression Endocrine: Denies: Heat Intolerance, Cold Intolerance Hematologic/ Lymphatic: Denies: Anemia, Easy Brusing, Easy Bleeding Subjectve: Appears anxious. In acute distress. Diaphoretic Objective: Vital Signs Temp Pulse Resp BP Pulse Ox 98.2 F 97 23 H 158/111 H 99 03/07/18 22:26 03/07/18 22:26 03/07/18 22:26 03/07/18 22:26 03/07/18 22:26 General: Awake, Alert, Oriented x 3, In Acute Distress HEENT: Atraumatic, Normocephalic Oral: Moist Mucosa Neck: Supple, No JVD Lungs: Clear to auscultation Cardiovascular: Regular Rhythm, Normal S1, Normal S2 Abdomen: Bowel Sounds Present, Soft Extremities: No Cyanosis, No edema Neurological: No Focal Motor or Sensory Deficit Psych/Mental Status: Appropriate Rhythm: Normal sinus rhythm EKG: Normal sinus rhythm. ST elevation consistent with acute inferior myocardial infarction Assessment/Plan 1. Acute inferior myocardial infarction. Patient was advised emergent coronary angiography and possible revascularization. After informed consent, cardiac catheterization and coronary angiography was done. Coronary angiography revealed totally occluded proximal right coronary artery with in- stent thrombosis. Balloon angioplasty was performed. This was followed by aspiration thrombectomy. Some distal embolization of the clot was noted in the right posterior descending artery which was treated with balloon angioplasty. Clot embolization in the right posterior lateral ventricular branch was also treated with balloon angioplasty. The culprit lesion was also noted to have in- stent restenosis. A 4.0 x 33 mm resolute integrity drug-eluting stent was therefore deployed. This was postdilated under high pressures. Proximal part of the stent was postdilated using a 4.5 mm balloon. Post IVUS revealed excellent stent apposition 2. Start patient on Brilinta. Stop clopidogrel. Patient has true allergy to aspirin. Continue Pletal. I would recommend continuing Brilinta and Pletal for this patient lifelong. As an outpatient at a later stage, consider aspirin desensitization 3. Overall left ventricular systolic function was normal X 4. Lipid management as per internal medicine 5. Diabetes mellitus 6. History of hypertension
[2018-03-08] VITALS (33 sets, daily range): BP systolic 105–152; BP diastolic 66–99; PULSE 56–88; RESP 10–26; TEMP 36.6–37.6; O2SAT 97–100
[2018-03-08] LABS: ACT Activated Clotting Time 175 sec (74-137)
--- NOTE | 2018-03-08 00:13 | CL.I_ITS ---
Patient Name: CHEPE CRAFT Study Date: 03/07/2018 Performing: Katarina Francisco MD Ht: 70 inches 178 cm : 1970 Wt: 278.1 lbs 126 kg Age: 47 Gender: male BSA: 2.4 PROCEDURE(S) PERFORMED [id number]/COR/LV [id number], TA AND/OR PTCA, ARTERY OR GRAFT, SINGLE VESSEL [id number], CORONARY OR GRAFT, INITIAL VESSEL CLINICAL PROFILE AND CO-MORBIDITIES Heart Failure: None CAD Presentations: STEMI. Symptom onset Date/Time: 03/07/2018 CONCLUSIONS 100% Prox RCA with stent thrombosis 50% Mid LAD; 70-80% ostial D1 LVEF 55%. Severe posterior basal hypokinesis Successful PCI with PTCA, Aspiration thrombectomy and TA to Prox RCA using Resolute Integrity 4.0x33 mm. Post-dilated proximally with 4.5 mm balloon Post-IVUS showed excellent stent apposition Distal thrombus embolization in RPDA and RPLV treated with PTCA with 3.0 mm and 2.5 mm balloons respe ctively RECOMMENDATIONS Brilinta indefintely Pletal treatment indefintely Consider evaluation for desensitization to ASA as OP Follow up with Dr. Franco DESCRIPTION OF PROCEDURE The patient arrived to the procedure lab. The risks and benefits of the procedure as well as a full d escription of our services here and lack of surgical backup were fully explained to the patient and/o r their significant other prior to the catheterization. The Timeout was completed, verifying the sekou ect patient and procedure. The patient's procedural site was prepped and draped in the usual fashion. Local anesthetic was given subcutaneously to right radial region with Lidocaine 2%. Local anesthetic was given subcutaneously to right groin region with Lidocaine 2%. Using a modified Seldinger techniq ue, arterial access was obtained via the right radial artery, unsuccessful, arterial access was obtai cale via the right femoral artery, a 6Fr sheath was inserted.. Left Coronary Artery selective angiogr aphy was performed in multiple views using a 6 Fr. JL4 catheter. Left Ventriculography was performed in LOWE projection using a 5 Fr. Pigtail catheter. LV to AO pullback pressures were then recordedThe i mages were reviewed and options discussed. A decision was then made to proceed with an Intervention, IVUS or other adjunct procedure. JR 4 Guide catheter was inserted and engaged into the RCA. Runthrough Guide wire was advanced to the RCA. 3.5x20 Emerge Balloon catheter was inserted. Balloon catheter was advanced across lesion in the right coronary, proximal. PTCA balloon inflated at 6 atms for 15 secs. Angiogram performed post ballo on dilatation. Northway AP inserted Pass # 1 Northway AP inserted Pass # 2 Angiogram performed post ballo on dilatation. 3x15 Emerge Balloon catheter was inserted. Balloon catheter was advanced across lesion in the right coronary, proximal. PTCA balloon inflated at 8 atms for 18 secs. 4x34 Resolute Drug Elu ting stent was inserted. Drug Eluting stent was advanced across the lesion in the right coronary, pro ximal. 4x20 NC Emerge Balloon catheter was inserted. Balloon catheter was advanced across lesion in t he right coronary, proximal. PTCA balloon inflated at 15 atms for 15 secs. PTCA balloon inflated at 2 0 atms for 20 secs. PTCA balloon inflated at 20 atms for 30 secs. IVUS pullback recording was perform ed on the RCA for post PCI assessment. Angiogram performed post stent deployment. 4.5x8 NC Emerge Ba lloon catheter was inserted. Balloon catheter was advanced across lesion in the right coronary, proxi mal. Angiogram performed post stent deployment. 2.5x15 Emerge Balloon catheter was inserted. Balloon catheter was advanced across lesion in the right coronary, proximal. PTCA balloon inflated at 4 atms for 8 secs. Angiogram performed post stent deployment. The arterial sheath was pulled and a Perclos e closure device was deployed for hemostasis CORONARY ANGIOGRAPHY DOMINANCE: Right Dominant LEFT HEART ASSESSMENT Left Ventricular Ejection Fraction: by LV Gram 55 % LVEDP: 20 mmHg LEFT MAIN: Angiographically normal LEFT ANTERIOR DECENDING ARTERY: 50% Mid LAD; 70-80% ostial D1 CIRCUMFLEX ARTERY: No significant angiographic disease RIGHT CORONARY ARTERY: 100% Proximal INTERVENTION INFORMATION LESION SITE: RCA (Proximal) Lesion Complexity: High/C, chronic total occlusion: No, thrombus present: Yes, In-stent Thrombosis: Y es, In-stent restenosis: Yes Pre Stenosis: 100 % Pre intervention NADYA flow: 0 PROCEDURE: Thrombectomy, IVUS for post stent evaluation, Drug Eluting Stent with pre and post dilatation Post Stenosis: 0 % Post intervention NADYA flow: 3 Lesion Devices: Cordis 6 Fr JR4 100cm Guide Catheter Quang Sci EMERGE MR 3.50x20 BALLOON Quang Sci EMERGE MR 3.00x15 BALLOON Medtronic Resolute RX TA 4.0x34 Quang Sci NC EMERGE MR 4.00x20 BALLOON Medtronic 6 Fr. Northway AP Aspiration Catheter [place] Coronary IVUS Catheter Quang Sci NC EMERGE MR 4.50x08 BALLOON Quang Sci EMERGE MR 2.50x15 BALLOON COMPLICATIONS No Complications PROCEDURE MEDICATIONS Fentanyl 50 mcg IV Versed 1 mg IV Oxygen: 2 L/min via nasal cannula Atropine 1mg/10ml 0.5 amp 03/07/2018 22:34:54 Atropine 1mg/10ml 0.5 amp 03/07/2018 22:34:54 Brilinta 90 mg PO @ 03/07/2018 23:31:06 Heparin 8000 unit(s) IV 03/07/2018 22:29:57 Heparin 2000 unit(s) IV 03/07/2018 23:31:01 Nitro Tab 0.4 mg PO 03/07/2018 22:21:01 Nitro 100 mcg IC 03/07/2018 23:17:50 SUMMARY OF HEMODYNAMIC DATA Time AIR REST ECG 22:10:32 AO 117/87 (100) SA 22:26:05 AO 64/41 (49) 22:36:06 AO 71/56 (62) 22:41:09 AO 99/82 (90) 22:59:42 AO 115/83 (97) 23:05:04 LV 125/0, 26 23:22:57 LV 118/-1, 17 23:23:04 LVp 103/27, 29 23:24:19 AOp 109/69 (89) 23:24:24 Signed By Katarina Francisco MD On 03/08/2018 00:13:12 Katarina Francisco MD
--- NOTE | 2018-03-08 00:35 | ED.VISSUMM ---
- ER Visit Summary Date of Service: 03/08/18 Chief Complaint: Chest pain History of Present Illness: The patient is a 47 M presents with acute onset of chest pain. States he was outside doing yard work when he had a sudden onset of chest pressure anterior chest. He notes shortness of breath and sweating. Patient has a history of having stents placed in the right coronary artery last fall. Patient is on Plavix. He notes a allergy to aspirin. Prehospital EKG demonstrates ST segment elevation inferiorly. Prehospital STEMI was called approximately 5 minutes before patient arrival. I did speak with interventional cardiology prior to the patient's arrival and they are on their way to the hospital. Physical Examination: Heart rate 93 respirations are 18 pulse ox 100% on 2 L temperature 98.1 blood pressure 143/100 Gen: Well-nourished well-developed Head: Normocephalic atraumatic Eyes: Perrl EOMI ENT: TMs clear no rhinorrhea moist mucous membranes Neck: Supple no lymphadenopathy no JVD nontender CVS: Tachycardic regular rate rhythm no murmurs normal S1-S2 Respiratory: No distress clear to auscultation bilaterally chest nontender Abdomen: Soft nontender nondistended normal bowel sounds no masses Back: Nontender Extremity: Nontender no edema Skin: Normal color patient is diaphoretic Neuro: alert orientated ?3 CN II-XII intact normal strength sensation reflexes gait cerebellar Psych: Normal affect normal mood Test Results: EKG demonstrates sinus rhythm with ST segment elevation in 2 3 and aVF. Blood work was drawn and sent. Chest x-ray shows a normal mediastinal silhouette. Emergency Department Course and Treatment: Patient received Plavix as well as heparin. His heart rate was up to 110 and he received 5 mg of metoprolol IV. Patient was assessed by interventional cardiology and he will be taken to the Lead Mechanical [facility]. Impression: 1. Acute coronary syndrome-inferior STEMI This note was generated with flaveit dictation software. It may contain incorrect words, spelling, and punctuation that were not noted in review of the chart prior to signing ED Disposition - Plan for ED Patient: Disposition: Acute Care Hospital [facility] Chief Complaint: Chest Pain
--- NOTE | 2018-03-08 00:39 | ED.DCSUM_ITS ---
- ER Visit Summary Date of Service: 03/08/18 Chief Complaint: Chest pain History of Present Illness: The patient is a 47 M presents with acute onset of chest pain. States he was outside doing yard work when he had a sudden onset of chest pressure anterior chest. He notes shortness of breath and sweating. Patient has a history of having stents placed in the right coronary artery last fall. Patient is on Plavix. He notes a allergy to aspirin. Prehospital EKG demonstrates ST segment elevation inferiorly. Prehospital STEMI was called approximately 5 minutes before patient arrival. I did speak with interventional cardiology prior to the patient's arrival and they are on their way to the hospital. Physical Examination: Heart rate 93 respirations are 18 pulse ox 100% on 2 L temperature 98.1 blood pressure 143/100 Gen: Well-nourished well-developed Head: Normocephalic atraumatic Eyes: Perrl EOMI ENT: TMs clear no rhinorrhea moist mucous membranes Neck: Supple no lymphadenopathy no JVD nontender CVS: Tachycardic regular rate rhythm no murmurs normal S1-S2 Respiratory: No distress clear to auscultation bilaterally chest nontender Abdomen: Soft nontender nondistended normal bowel sounds no masses Back: Nontender Extremity: Nontender no edema Skin: Normal color patient is diaphoretic Neuro: alert orientated ?3 CN II-XII intact normal strength sensation reflexes gait cerebellar Psych: Normal affect normal mood Test Results: EKG demonstrates sinus rhythm with ST segment elevation in 2 3 and aVF. Blood work was drawn and sent. Chest x-ray shows a normal mediastinal silhouette. Emergency Department Course and Treatment: Patient received Plavix as well as heparin. His heart rate was up to 110 and he received 5 mg of metoprolol IV. Patient was assessed by interventional cardiology and he will be taken to the [facility]. Impression: 1. Acute coronary syndrome-inferior STEMI This note was generated with RescueTime dictation software. It may contain incorrect words, spelling, and punctuation that were not noted in review of the chart prior to signing ED Disposition - Plan for ED Patient: Disposition: [facility] Chief Complaint: Chest Pain
[2018-03-08 00:59] LABS: International Normalized Ratio 1.1; Prothrombin Time (Protime)PT. 14.6 SECONDS (11.7-14.9)
[2018-03-08 01:19] LABS: M R Staph aureus DNA By PCR Negative (Negative); Probe Check PASS; Specimen Processing Control PASS
[2018-03-08 01:31] LABS: Partial Thromboplast Time 98.9 Seconds (24.1-36.2)
[2018-03-08] MEDS: 0.9% Normal Saline 1,000 ML 100 ML IV (02:23)
[2018-03-08] MEDS: Gabapentin 600 MG Tablet PO ×3 (04:11→21:02)
[2018-03-08 05:10] LABS: Bedside Glucose 150 mg/dL (70-110)
[2018-03-08 06:21] LABS: Hematocrit 40.7 % (40-54); Hemoglobin 13.5 g/dl (13.0-16.5); Mean Corp Hgb Conc 33.2 g/gl (32-36); Mean Corpuscular Hgb 31.5 pg (27.0-32.0); Mean Corpuscular Volume 95.1 fL (80-94); Mean Platelet Vol. 10.2 fl (6.2-12.0); Platelet Count 217 K/mm3 (150-450); RBC Distribution Width CV 13.5 % (11.6-14.6); RBC Distribution Width SD 45.4 fl (35.1-43.9); Red Blood Count 4.28 M/mm3 (4.6-6.2); White Blood Count 8.6 K/mm3 (4.4-11.0)
[2018-03-08 06:22] LABS: Scan Indicated on CBC? Y/N NO
[2018-03-08 06:43] LABS: ALB/GLOB Ratio 0.8 RATIO (0.9-2.4); AST(SGOT) 90 U/L (15-37); Alanine Aminotransfer ALT/SGPT 35 U/L (16-61); Alkaline Phosphatase 127 U/L (45-117); Anion Gap 6 (5-15); BUN 12 mg/dL (7-18); BUN/Creat Ratio 10.7 RATIO (10-20); Calcium,Total 8.6 mg/dL (8.5-10.1); Chloride 106 mmol/L (98-107); Cholesterol 154 mg/dL (200); Creatinine, Serum 1.12 mg/dL (0.70-1.30); EST Glomerular Filtration Rate 75 mL/min (>60); Est Glom Filt Rate - Afr Amer 90 mL/min (>60); Globulin 3.6 g/dL (2.2-4.2); Glucose 156 mg/dL (74-106); High Density Lipoprotein 30 mg/dL; Potassium 4.3 mmol/L (3.5-5.1); Protein, Total 6.6 g/dL (6.4-8.2); Sodium Level 138 mmol/L (136-145); Triglycerides 203 mg/dL; Very Low Density Lipoprotein 41 mg/dL (5-40)
--- NOTE | 2018-03-08 06:44 | PCM.PN.HOSP ---
Patient Problems: Active and Suspected Problems (Last Updated 01/21/18 @ 12:36 by Jaye Loco) STEMI (ST elevation myocardial infarction) (Acute) Subjective: Patient overnight with noted mild oozing from right groin but this has lessened and initially following bed rest severe back pain but has improved. He does this morning note onset of midsternal chest discomfort described as a tightness without radiation which was related to cardiology and has improved per patient report. Pending cardiology assessment this morning and echocardiogram. Patient denies fevers, chills, nausea, emesis, abdominal pain or dyspnea. Objective: Physical Examination: General: awake, alert, oriented x 3 and cooperative, seated upright in the ICU bed, does report some mild substernal chest tightness. Skin: normal color, turgor, no icterus, cyanosis except right groin status post cardiac catheterization with dressing in place with no active bleeding but had had oozing prior. HEENT: AT/NC, EOMI, PERRLA, MMM. Lungs: CTA bilaterally, moderate effort, mild decrease BL bases, no rales, ronchi or wheezing. Heart: Regular rate and rhythm; no gallop, rub audible. Abdomen: soft, obese, NTTP, ND, normal BS, no HSM. Extremities: no cyanosis, clubbing, or edema. Neurological: patient awake, alert, oriented x 3; cognitive function intact; pupils equally reactive to light and accomodation; cranial nerves II-XII grossly normal, moving all 4 extremities, no focal deficits, strength moderately globally decreased secondary to acute presentation. Psychiatric: affect appears normal, no acute evidence of depressive or anxiety feelings. Vitals/I&O's: Vital Signs Temp Pulse Resp BP Pulse Ox 98.2 F 71 23 H 136/95 H 98 03/08/18 04:00 03/08/18 06:00 03/08/18 06:00 03/08/18 06:00 03/08/18 06:00 Oxygen Flow Rate (L/min) 2 Oxygen Delivery Method Room Air Weight: 279 lb 15.793 oz Body Mass Index (BMI) 33.5 Intake and Output for Last 24 Hours 03/06/18 03/07/18 03/08/18 23:59 23:59 23:59 Intake Total 675.3 / 675.3 Output Total 550 / 550 Balance 125.3 / 125.3 Laboratory Results 03/07/18 23:22: Activated Clotting Time 175 H 03/07/18 23:50: MRSA (PCR) Negative 03/08/18 00:40: PT 14.6, INR 1.1, APTT 98.9 H* 03/08/18 01:59: POC Glucose 150 H 03/08/18 06:10: WBC 8.6, RBC 4.28 L, Hgb 13.5, Hct 40.7, MCV 95.1 H, MCH 31.5, MCHC 33.2, RDW 13.5, RDW Differential 45.4 H, Plt Count 217, MPV 10.2 03/08/18 06:10: Sodium 138, Potassium 4.3, Chloride 106, Carbon Dioxide 26.0, Anion Gap 6, BUN 12, Creatinine 1.12, Estim Creat Clear Calc 100.10, Est GFR (MDRD) Af Amer 90, Est GFR (MDRD) Non-Af 75, BUN/Creatinine Ratio 10.7, Glucose 156 H, Calcium 8.6, Total Bilirubin 0.60, AST 90 H, ALT 35, Alkaline Phosphatase 127 H, Total Protein 6.6, Albumin 3.0 L, Globulin 3.6, Albumin/Globulin Ratio 0.8 L, Triglycerides 203 H, Cholesterol 154, LDL Cholesterol 83, VLDL Cholesterol 41 H, HDL Cholesterol 30 L Current Medications Atorvastatin Calcium (Lipitor) 80 mg PO QHS [facility] Atropine Sulfate () 0.5 mg IV UD PRN PRN Reason: HR <50 bpm Cholecalciferol (Vitamin D) 1,000 unit PO BID [facility] Cilostazol (Pletal) 100 mg PO BID [facility] Cyclobenzaprine HCl (Flexeril) 10 mg PO TID [facility] Last Admin: 03/08/18 02:23 Dose: 10 mg Famotidine (Pepcid) 40 mg PO BID [facility] Gabapentin (Neurontin) 600 mg PO TID [facility] Last Admin: 03/08/18 04:11 Dose: 600 mg Hydroxyzine Pamoate (Vistaril Pamoate Capsule) 25 mg PO 4X/DAY [facility] Eptifibatide (Integrilin) 75 mg in 100 mls @ 20.096 mls/hr CONT INF .Q4H59M [facility] PRN Reason: 2 MCG/KG/MIN Stop: 03/08/18 09:46 Last Admin: 03/08/18 03:20 Dose: 20.096 mls/hr Sodium Chloride () 1,000 mls @ 100 mls/hr IV .Q10H [facility] Stop: 03/08/18 09:43 Last Admin: 03/08/18 02:23 Dose: 100 mls/hr Sodium Chloride () 250 mls @ 15 mls/hr IV .[id number] PRN PRN Reason: SALINE FLUSH Isosorbide Mononitrate (Imdur) 30 mg PO DAILY [facility] Magnesium Hydroxide (Milk Of Magnesia) 30 ml PO DAILY PRN PRN PRN Reason: Constipation Metoprolol Succinate (Toprol Xl (Beta Delia)) 25 mg PO DAILY [facility] Multivitamins (Allbee W/C Caplet, Thera B Comp/C) 1 capsule PO DAILY [facility] Nitroglycerin (Nitrostat) 0.4 mg SUBLINGUAL Q5M PRN PRN Reason: Chest Pain Non-Formulary Medication (Glipizide Er) 2.5 mg PO QDAY [facility] Oxybutynin Chloride (Ditropan) 5 mg PO DAILY [facility] Pantoprazole Sodium (Protonix) 40 mg PO BID [facility] Sodium Chloride () 500 ml IV BOLUS PRN PRN Reason: VASO-VAGAL PROTOCOL Sodium Chloride () 5 - 30 ml IV UD PRN PRN Reason: SALINE FLUSH Ticagrelor (Brilinta) 90 mg PO BID [facility] Medical Necessity - Tobacco Use Smoking Status: Current every day smoker Assessment/Plan Active and Suspected Problems (Last Updated 01/21/18 @ 12:36 by Jaye Loco) STEMI (ST elevation myocardial infarction) (Acute) The patient is a 47 y/o M w/ PMHx: HTN, HLD, Tobacco use, CAD s/p PCI w/ PTCA with BMS to RCA 11/24; C w/PCI of RCA, Chronic back pain w/ spinal stenosis, Obesity who presents to the [facility] ED on 03/07/18 with sudden onset L sided chest pain, severe and crushing sensation while doing yard work w/ dyspnea and diaphoresis. (1) Chest Pain w/ Acute inferior STEMI: EKG in ED w/ ST segment elevation inferiorly. Patient loaded with Plavix and heparin as well as administered IV metoprolol w/ transition for cardiac catheterization which revealed totally occluded proximal RCA with in-stent thrombosis with balloon angioplasty performed with aspiration thrombectomy with some distal embolization of the clot noted in the right posterior descending artery which was also treated with balloon angioplasty and clot embolization in the right posterior lateral ventricle branch treated with balloon angioplasty and also noted culprit lesion with an in-stent restenosis therefore a resolute integrity drug-eluting stent was deployed. Admitted to the ICU, maintained on a monitored bed, continue serial cardiac enzymes and EKGs. Maintained on integrilin. Continue medical management w/ pletal, brillinta, BB, statin w/ AM FLP as noted. NG, morphine. Cardiology will follow with at this stage given recurrence lifelong continuation of Brilinta and Pletal with consideration for future aspirin desensitization. Cardiology aware of post catheterization mild chest tightness and will evaluate. (2) Acute kidney injury: Secondary to acute presentation and likely decreased intake on day of presentation. Admission BUN/Cr 11/1.67, prior baseline creatinine noted to be 0.9-1. Hydrated, repeat 03/08/18 BUN/Cr 12/1.12. (3) CAD: Status post PCI prior with history of ST elevation CA involving the proximal right coronary artery 07/2017 and prior to this a stent placed in 2009 with history of true allergy to aspirin with anaphylaxis with bare-metal stent placement prior. (4) Diabetes mellitus type II: Hold oral home regimen, ADA diet, accu checks w/ ISS, HgbA1c pending, nutrition consulted for educations and teaching. (5) Hypertension: Continue home regimen including isosorbide, metoprolol, PRN hydralazine. (6) Hyperlipidemia: Continue home statin regimen. AM FLP with triglycerides 203, cholesterol 154, LDL 83, VLDL 41, HDL 30. (7) Obesity: Weight loss and lifestyle changes encouraged. (8) Hx Tobacco Abuse: Encouraged continued cessation, inpatient consultation per RT. (9) GERD: PPI. (10) DVT Prophylaxis: SCDs, recent heparin IV w/ loading, on integrillin, transition per Cardiology allowance. Code Visit Inpatient E&M: 86168 Subs Hosp L3
--- NOTE | 2018-03-08 06:55 | PN_ITS ---
Patient Problems: Active and Suspected Problems (Last Updated 01/21/18 @ 12:36 by Jaye Loco) STEMI (ST elevation myocardial infarction) (Acute) Subjective: Patient overnight with noted mild oozing from right groin but this has lessened and initially following bed rest severe back pain but has improved. He does this morning note onset of midsternal chest discomfort described as a tightness without radiation which was related to cardiology and has improved per patient report. Pending cardiology assessment this morning and echocardiogram. Patient denies fevers, chills, nausea, emesis, abdominal pain or dyspnea. Objective: Physical Examination: General: awake, alert, oriented x 3 and cooperative, seated upright in the ICU bed, does report some mild substernal chest tightness. Skin: normal color, turgor, no icterus, cyanosis except right groin status post cardiac catheterization with dressing in place with no active bleeding but had had oozing prior. HEENT: AT/NC, EOMI, PERRLA, MMM. Lungs: CTA bilaterally, moderate effort, mild decrease BL bases, no rales, ronchi or wheezing. Heart: Regular rate and rhythm; no gallop, rub audible. Abdomen: soft, obese, NTTP, ND, normal BS, no HSM. Extremities: no cyanosis, clubbing, or edema. Neurological: patient awake, alert, oriented x 3; cognitive function intact; pupils equally reactive to light and accomodation; cranial nerves II-XII grossly normal, moving all 4 extremities, no focal deficits, strength moderately globally decreased secondary to acute presentation. Psychiatric: affect appears normal, no acute evidence of depressive or anxiety feelings. Vitals/I&O's: Vital Signs Temp Pulse Resp BP Pulse Ox 98.2 F 71 23 H 136/95 H 98 03/08/18 04:00 03/08/18 06:00 03/08/18 06:00 03/08/18 06:00 03/08/18 06:00 Oxygen Flow Rate (L/min) 2 Oxygen Delivery Method Room Air Weight: 279 lb 15.793 oz Body Mass Index (BMI) 33.5 Intake and Output for Last 24 Hours 03/06/18 03/07/18 03/08/18 23:59 23:59 23:59 Intake Total 675.3 / 675.3 Output Total 550 / 550 Balance 125.3 / 125.3 Laboratory Results 03/07/18 23:22: Activated Clotting Time 175 H 03/07/18 23:50: MRSA (PCR) Negative 03/08/18 00:40: PT 14.6, INR 1.1, APTT 98.9 H* 03/08/18 01:59: POC Glucose 150 H 03/08/18 06:10: WBC 8.6, RBC 4.28 L, Hgb 13.5, Hct 40.7, MCV 95.1 H, MCH 31.5, MCHC 33.2, RDW 13.5, RDW Differential 45.4 H, Plt Count 217, MPV 10.2 03/08/18 06:10: Sodium 138, Potassium 4.3, Chloride 106, Carbon Dioxide 26.0, Anion Gap 6, BUN 12, Creatinine 1.12, Estim Creat Clear Calc 100.10, Est GFR ( MDRD) Af Amer 90, Est GFR (MDRD) Non-Af 75, BUN/Creatinine Ratio 10.7, Glucose 156 H, Calcium 8.6, Total Bilirubin 0.60, AST 90 H, ALT 35, Alkaline Phosphatase 127 H, Total Protein 6.6, Albumin 3.0 L, Globulin 3.6, Albumin/ Globulin Ratio 0.8 L, Triglycerides 203 H, Cholesterol 154, LDL Cholesterol 83, VLDL Cholesterol 41 H, HDL Cholesterol 30 L Current Medications Atorvastatin Calcium (Lipitor) 80 mg PO QHS [facility] Atropine Sulfate () 0.5 mg IV UD PRN PRN Reason: HR <50 bpm Cholecalciferol (Vitamin D) 1,000 unit PO BID [facility] Cilostazol (Pletal) 100 mg PO BID [facility] Cyclobenzaprine HCl (Flexeril) 10 mg PO TID [facility] Last Admin: 03/08/18 02:23 Dose: 10 mg Famotidine (Pepcid) 40 mg PO BID [facility] Gabapentin (Neurontin) 600 mg PO TID [facility] Last Admin: 03/08/18 04:11 Dose: 600 mg Hydroxyzine Pamoate (Vistaril Pamoate Capsule) 25 mg PO 4X/DAY [facility] Eptifibatide (Integrilin) 75 mg in 100 mls @ 20.096 mls/hr CONT INF .Q4H59M [facility] PRN Reason: 2 MCG/KG/MIN Stop: 03/08/18 09:46 Last Admin: 03/08/18 03:20 Dose: 20.096 mls/hr Sodium Chloride () 1,000 mls @ 100 mls/hr IV .Q10H [facility] Stop: 03/08/18 09:43 Last Admin: 03/08/18 02:23 Dose: 100 mls/hr Sodium Chloride () 250 mls @ 15 mls/hr IV .[id number] PRN PRN Reason: SALINE FLUSH Isosorbide Mononitrate (Imdur) 30 mg PO DAILY [facility] Magnesium Hydroxide (Milk Of Magnesia) 30 ml PO DAILY PRN PRN PRN Reason: Constipation Metoprolol Succinate (Toprol Xl (Beta Delia)) 25 mg PO DAILY [facility] Multivitamins (Allbee W/C Caplet, Thera B Comp/C) 1 capsule PO DAILY [facility] Nitroglycerin (Nitrostat) 0.4 mg SUBLINGUAL Q5M PRN PRN Reason: Chest Pain Non-Formulary Medication (Glipizide Er) 2.5 mg PO QDAY [facility] Oxybutynin Chloride (Ditropan) 5 mg PO DAILY [facility] Pantoprazole Sodium (Protonix) 40 mg PO BID [facility] Sodium Chloride () 500 ml IV BOLUS PRN PRN Reason: VASO-VAGAL PROTOCOL Sodium Chloride () 5 - 30 ml IV UD PRN PRN Reason: SALINE FLUSH Ticagrelor (Brilinta) 90 mg PO BID [facility] Medical Necessity - Tobacco Use Smoking Status: Current every day smoker Assessment/Plan Active and Suspected Problems (Last Updated 01/21/18 @ 12:36 by Jaye Loco) STEMI (ST elevation myocardial infarction) (Acute) The patient is a 47 y/o M w/ PMHx: HTN, HLD, Tobacco use, CAD s/p PCI w/ PTCA with BMS to RCA 11/24; C w/PCI of RCA, Chronic back pain w/ spinal stenosis, Obesity who presents to the [facility] ED on 03/07/18 with sudden onset L sided chest pain, severe and crushing sensation while doing yard work w/ dyspnea and diaphoresis. (1) Chest Pain w/ Acute inferior STEMI: EKG in ED w/ ST segment elevation inferiorly. Patient loaded with Plavix and heparin as well as administered IV metoprolol w/ transition for cardiac catheterization which revealed totally occluded proximal RCA with in-stent thrombosis with balloon angioplasty performed with aspiration thrombectomy with some distal embolization of the clot noted in the right posterior descending artery which was also treated with balloon angioplasty and clot embolization in the right posterior lateral ventricle branch treated with balloon angioplasty and also noted culprit lesion with an in-stent restenosis therefore a resolute integrity drug-eluting stent was deployed. Admitted to the ICU, maintained on a monitored bed, continue serial cardiac enzymes and EKGs. Maintained on integrilin. Continue medical management w/ pletal, brillinta, BB, statin w/ AM FLP as noted. NG, morphine. Cardiology will follow with at this stage given recurrence lifelong continuation of Brilinta and Pletal with consideration for future aspirin desensitization. Cardiology aware of post catheterization mild chest tightness and will evaluate. (2) Acute kidney injury: Secondary to acute presentation and likely decreased intake on day of presentation. Admission BUN/Cr 11/1.67, prior baseline creatinine noted to be 0.9-1. Hydrated, repeat 03/08/18 BUN/Cr 12/1.12. (3) CAD: Status post PCI prior with history of ST elevation NC involving the proximal right coronary artery 07/2017 and prior to this a stent placed in 2009 with history of true allergy to aspirin with anaphylaxis with bare-metal stent placement prior. (4) Diabetes mellitus type II: Hold oral home regimen, ADA diet, accu checks w/ ISS, HgbA1c pending, nutrition consulted for educations and teaching. (5) Hypertension: Continue home regimen including isosorbide, metoprolol, PRN hydralazine. (6) Hyperlipidemia: Continue home statin regimen. AM FLP with triglycerides 203 , cholesterol 154, LDL 83, VLDL 41, HDL 30. (7) Obesity: Weight loss and lifestyle changes encouraged. (8) Hx Tobacco Abuse: Encouraged continued cessation, inpatient consultation per RT. (9) GERD: PPI. (10) DVT Prophylaxis: SCDs, recent heparin IV w/ loading, on integrillin, transition per Cardiology allowance. Code Visit Inpatient E&M: 33102 Subs Hosp L3
[2018-03-08] MEDS: Insulin Lispro 100 UNIT/ML INSULN.PEN SC ×3 (08:30→16:19)
[2018-03-08] MEDS: Metoprolol(XL)Succ 25 MG Tablet PO (08:32)
[2018-03-08] MEDS: Cilostazol 50 MG Tablet 100 MG PO ×2 (08:33→21:03)
[2018-03-08] MEDS: Pantoprazole Sodium 40 MG Tablet PO ×2 (08:33→21:24)
[2018-03-08] MEDS: hydrOXYzine PAM 25 MG Capsule PO ×4 (08:34→21:02)
[2018-03-08] MEDS: Isosorbide Mononitrate 30 MG Tablet PO (08:36)
[2018-03-08] MEDS: Oxybutynin 5 MG Tablet PO (08:37)
[2018-03-08] MEDS: Famotidine 20 MG Tablet 40 MG PO ×2 (08:37→21:02)
[2018-03-08] MEDS: TICAGRELOR 90 MG TABLET PO ×2 (08:38→21:03)
[2018-03-08 08:44] LABS: Hemoglobin A1c 8.2 % (4.2-6.3)
--- NOTE | 2018-03-08 09:10 | ECHOD_ITS ---
Reason For Study: Arrhythmia Procedure This was a 2D Doppler, Color Flow transthoracic echocardiogram. The exam was of fair technical quality due to body habitus. The study was technically difficult. Exam performed portable in ICU/CCU. Left Ventricle Normal LV size. Segmental dysfunction with preserved ejection fraction (see wall motion). The estimated ejection fraction is 60 %. Transmitral doppler flow suggestive of impaired relaxation of left ventricle. Posterior-Basal: Akinetic. Infero-Basal: Akinetic. Right Ventricle Normal RV size. Normal systolic function. Atria The left atrium is mildly enlarged. Normal right atrium. No doppler evidence for ASD. Mitral Valve There is no mitral annular calcification. Normal mitral valve. Trivial mitral valve insufficiency. Tricuspid Valve Normal tricuspid valve. Trivial tricuspid valve insufficiency. Right ventricular systolic pressure estimated to be 28 mmHg. Aortic Valve Trisinus/trileaflet aortic valve. Normal aortic valve. Mild (1+) aortic valve insufficiency. Pulmonic Valve The pulmonic valve is not well visualized. Great Vessels Normal sized aortic root. Pericardium/Pleural No pericardial effusion. MMode/2D Measurements & Calculations LVIDd: 4.4 cm IVSd: 1.2 cm Ao root diam: 3.5 cm LVIDs: 3.7 cm LVPWd: 1.3 cm LA dimension: 3.9 cm RVDd: 3.2 cm FS: 15.7 % LAV(MOD-bp): 85.8 ml LVAd ap4: 41.6 cm2 SV(MOD-sp4): 86.5 ml LAV(MOD-bp) Indexed: 33.6 ml/m2 EDV(MOD-sp4): 139.1 ml LAV(MOD-sp2): 95.2 ml EDV(sp4-el): 141.5 ml LAV(MOD-sp4): 66.3 ml LVAs ap4: 21.5 cm2 ESV(MOD-sp4): 52.6 ml ESV(sp4-el): 50.9 ml EF(MOD-sp4): 62.2 % EF(sp4-el): 64.0 % SV(sp4-el): 90.6 ml LA A4 area: 24.3 cm2 RA A4 area: 14.8 cm2 Time Measurements MV dec time: 0.22 sec Doppler Measurements & Calculations MV E max nils: 72.9 cm/sec Lat Peak E' Nils: 12.8 cm/sec Med Peak E' Nils: 10.3 cm/sec MV A max nils: 84.0 cm/sec E/E' lat: 5.7 E/E' med: 7.1 MV E/A: 0.87 MV V2 max: 87.6 cm/sec MV P1/2t max nils: 84.7 cm/sec Ao V2 max: 136.8 cm/sec MV max P.1 mmHg MV P1/2t: 146.4 msec Ao max P.5 mmHg MV V2 mean: 55.4 cm/sec MV dec slope: 169.5 cm/sec2 Ao V2 mean: 84.8 cm/sec MV mean P.4 mmHg MVA(P1/2t): 1.5 cm2 Ao mean P.3 mmHg MV V2 VTI: 32.9 cm Ao V2 VTI: 22.7 cm LV V1 max: 112.7 cm/sec PA V2 max: 99.2 cm/sec TR max nils: 247.9 cm/sec LV V1 max P.1 mmHg TR max P.6 mmHg LV V1 mean P.3 mmHg LV V1 mean: 69.3 cm/sec LV V1 VTI: 22.6 cm Interpretation Summary Segmental dysfunction with preserved ejection fraction (see wall motion). The estimated ejection fraction is 60 %. The left atrium is mildly enlarged. Trivial mitral valve insufficiency. Trivial tricuspid valve insufficiency. Mild (1+) aortic valve insufficiency. Right ventricular systolic pressure estimated to be 28 mmHg. Transmitral doppler flow suggestive of impaired relaxation of left ventricle Ordering Physician: Eva May Referring Physician: Olivier Oates Performed By: Zac Lugo RCS
--- NOTE | 2018-03-08 09:45 | CM.UR ---
Met with patient face to face. Denies any needs. States currently working on advance directives. Instructed that we would like to have a copy and asked for them to drop off at Medical records or to bring in next time admitted so we can have them on file. Verb understanding. Plan is to return home. No needs anticipated. Juan Antonio Lazcano RN, [facility].
[2018-03-08] MEDS: Vitamin B Comp W-C Capsule 1 CAP PO (10:04)
[2018-03-08 10:35] LABS: ACT Activated Clotting Time 142 sec (74-137)
[2018-03-08 12:00] LABS: Bedside Glucose 175 mg/dL (70-110)
--- NOTE | 2018-03-08 15:25 | PCM.PN.CARD ---
Subjectve: No complaints. No chest pain. No dyspnea. Objective: Vital Signs Temp Pulse Resp BP Pulse Ox 98.8 F 66 18 106/66 98 03/08/18 12:00 03/08/18 15:03 03/08/18 15:00 03/08/18 15:00 03/08/18 15:00 Oxygen Flow Rate (L/min) 2 Oxygen Delivery Method Room Air Weight: 127 kg Body Mass Index (BMI) 33.5 Intake and Output for Last 24 Hours 03/06/18 03/07/18 03/08/18 23:59 23:59 23:59 Intake Total 1405.3 / 1405.3 Output Total 950 / 950 Balance 455.3 / 455.3 General: Healthy Appearing, Awake, Alert, Oriented x 3, No Acute Distress HEENT: Atraumatic, Normocephalic Oral: Moist Mucosa Neck: Supple, No JVD Lungs: Clear to auscultation Cardiovascular: Regular Rhythm, Normal S1, Normal S2, No Murmurs, No Rubs Vascular: No Carotid Bruits Abdomen: Bowel Sounds Present, Soft Extremities: - - Right groin stable. No hematoma. Neurological: No Focal Motor or Sensory Deficit Psych/Mental Status: Appropriate 03/08/18 00:40: PT 14.6, INR 1.1, APTT 98.9 H* 03/08/18 06:10: WBC 8.6, RBC 4.28 L, Hgb 13.5, Hct 40.7, MCV 95.1 H, MCH 31.5, MCHC 33.2, RDW 13.5, RDW Differential 45.4 H, Plt Count 217, MPV 10.2 03/08/18 06:10: Sodium 138, Potassium 4.3, Chloride 106, Carbon Dioxide 26.0, Anion Gap 6, BUN 12, Creatinine 1.12, Est GFR (MDRD) Af Amer 90, Est GFR (MDRD) Non-Af 75, BUN/Creatinine Ratio 10.7, Glucose 156 H, Calcium 8.6, Total Bilirubin 0.60, Triglycerides 203 H, Cholesterol 154, LDL Cholesterol 83, VLDL Cholesterol 41 H, HDL Cholesterol 30 L 03/08/18 06:10: Hemoglobin A1c 8.2 H Rhythm: Normal sinus rhythm. 4 beat run of nonsustained VT last night. Stable since then. EKG: Normal sinus rhythm. Changes consistent with recent inferior posterior OH. Medical Necessity - Tobacco Use Smoking Status: Current every day smoker Assessment/Plan 1. Acute inferior myocardial infarction. Status post drug-eluting stent placement to the proximal right coronary artery. Patient has an allergy to aspirin with report of anaphylactic reaction in the past. Continue Brilinta lifelong. Continue Pletal for at least one year. I strongly recommend evaluation for desensitization to aspirin outpatient. Certainly he would to be in the hospital for the desensitization itself if it is pursued 2. Overall left ventricular systolic function was normal X 3. Lipid management as per internal medicine 4. Diabetes mellitus 5. History of hypertension
[2018-03-08 16:31] LABS: Bedside Glucose 179 mg/dL (70-110)
[2018-03-08] MEDS: Atorvastatin Calcium 80 MG Tablet PO (21:03)
[2018-03-08 21:16] LABS: Bedside Glucose 137 mg/dL (70-110)
[2018-03-09] VITALS (12 sets, daily range): BP systolic 92–125; BP diastolic 55–94; PULSE 61–86; RESP 10–21; TEMP 36.5–37; O2SAT 95–100
[2018-03-09] MEDS: Gabapentin 600 MG Tablet PO (05:34)
--- NOTE | 2018-03-09 05:55 | EKG12_ITS ---
Test Reason : AM EKG Blood Pressure : / mmHG Vent. Rate : 068 BPM Atrial Rate : 068 BPM P-R Int : 154 ms QRS Dur : 088 ms QT Int : 474 ms P-R-T Axes : 061 -02 -34 degrees QTc Int : 504 ms Normal sinus rhythm Inferior-posterior infarct , age undetermined Prolonged QT Abnormal ECG Confirmed by GLADIS JONES, CANDELARIA ([id number]), map editor GRUPO MIJARES ([id number]) on 03/27/2018 5:01:55 PM Referred By: BELKIS Confirmed By:CANDELARIA GRIFFITH MD
--- NOTE | 2018-03-09 06:34 | PCM.DC ---
- Discharge Diagnoses Current Active Problems: Current Active and Chronic Problems (Last Updated 01/21/18 @ 12:36 by Jaye Loco) (1) Chest Pain w/ Acute inferior STEMI (2) Acute kidney injury (3) CAD (4) Diabetes mellitus type II (5) Hypertension (6) Hyperlipidemia (7) Obesity (8) Hx Tobacco Abuse (9) GERD You will use the following diet at home:: Calorie/Carbohydrate Controlled (specify 1200, 1400, etc) - 1800 ADA and cardiac diet encouraged., Cardiac Your food should be the consistency of: Regular Your liquids should be the consistency of: Regular/Thin Discharge Activity: - - Activity parameters as noted. May resume sexual activity in: 1-2 weeks Weight Bearing Status: Weight bearing as tolerated Call your doctor if your incision/area has: Continuous Slow Oozing, Sudden Increased Bleeding, Increased Pain/ Swelling, Increased Redness, Foul Smelling Discharge, Swelling at the incision site Call your doctor if you observe: Fever of 101 or Higher, Inability to urinate, Inability to have a bowel movement, Shortness of breath, Dizziness, Fainting spells, Chest pain, Uncontrolled pain Instructions: Symptoms of a Heart Attack, Diabetes and Heart Disease, Recognizing a Heart Attack or Angina, First Aid: Heart Attacks, Understanding Coronary Artery Disease (CAD), What Is High Blood Pressure?, Discharge Instructions for Heart Attack Additional Instructions: CARDIOLOGY PCI CATH INSTRUCTIONS. Lifting: Must be less than 5 lbs for 5 days, No restrictions after 14 days. Shower: Yes. Climb stairs: Yes. Bathing in tub or submerged water: No, until cleared per Cardiology at follow-up (call office if any concerns [phone] and may leave voicemail if after hours). Walkin minutes 3 times daily, increase as tolerated. Driving: Resume in 7 days. Sexual activity: Resume in 14 days. Regular activity: Resume 14 days Allergies/Adverse Reactions: Allergies acetaminophen [From Tylenol] Allergy (Verified 03/07/18 21:50) Angioedema aspirin Allergy (Verified 03/07/18 21:50) Anaphylaxis ibuprofen [From Motrin] Allergy (Verified 03/07/18 21:50) Anaphylaxis metformin Allergy (Verified 03/07/18 21:50) Swelling pollen extracts Allergy (Verified 03/07/18 21:50) Hives caffeine [From Excedrin Migraine] Adverse Reaction (Severe, Verified 03/07/18 21:50) Face swelling morphine Adverse Reaction (Verified 03/07/18 21:50) Other REDDNESS AND ITCHING TO IV SITE Medications to take at Discharge Citalopram [Celexa] 10 mg PO DAILY 08/02/15 Cyclobenzaprine [Flexeril] 10 mg PO TID 08/02/15 Oxybutynin [Ditropan] 5 mg PO DAILY 08/02/15 Ranitidine [Zantac] 300 mg PO BID 08/02/15 Cholecalciferol (VIT D3) [Vitamin D3] 1,000 unit PO BID 08/17/15 B12/Levomefolate Calcium/B-6 [Foltx Tablet] 1 ea PO DAILY 11/17/15 Esomeprazole Mag Trihydrate [Nexium] 40 mg PO BID 03/05/16 Hydroxyzine HCl 25 mg PO 4X/DAY 12/02/17 gabapentin 600 mg tablet 600 mg PO TID tab 01/23/18 glipizide ER 2.5 mg tablet, extended release 24 hr 2.5 mg PO QDAY 01/23/18 Atorvastatin Calcium [Lipitor] 80 mg PO QHS #30 tab 03/09/18 Cilostazol 100 mg PO BID #60 tab 03/09/18 Isosorbide Mononitrate [Imdur] 30 mg PO DAILY #30 tab 03/09/18 Metoprolol Succinate [Toprol Xl] 25 mg PO DAILY #30 tab 03/09/18 Nitroglycerin [Nitrostat] 0.4 mg SUBLINGUAL Q5M PRN #10 tab 03/09/18 Ticagrelor [Brilinta] 90 mg PO BID #60 tab 03/09/18 The following prescriptions were given: Atorvastatin Calcium [Lipitor] 80 mg PO QHS #30 tab Isosorbide Mononitrate [Imdur] 30 mg PO DAILY #30 tab Metoprolol Succinate [Toprol Xl] 25 mg PO DAILY #30 tab Nitroglycerin [Nitrostat] 0.4 mg SUBLINGUAL Q5M PRN #10 tab PRN Reason: Chest Pain Cilostazol 100 mg PO BID #60 tab Ticagrelor [Brilinta] 90 mg PO BID #60 tab Primary Care Physician: Olivier Oates MD [Primary Care Provider] - Please follow up with your Primary Care Physician in: Follow-up within 3-5 days to review admission. Please Follow Up With: Ronnie Franco MD When: Follow-up as recommended or 1 week w/ [employer]PER[employer]ISK ANALYST. Proposed Discharge Date: 03/09/18
--- NOTE | 2018-03-09 06:38 | DCINST_ITS ---
- Discharge Diagnoses Current Active Problems: Current Active and Chronic Problems (Last Updated 01/21/18 @ 12:36 by Jaye Loco) (1) Chest Pain w/ Acute inferior STEMI (2) Acute kidney injury (3) CAD (4) Diabetes mellitus type II (5) Hypertension (6) Hyperlipidemia (7) Obesity (8) Hx Tobacco Abuse (9) GERD You will use the following diet at home:: Calorie/Carbohydrate Controlled ( specify 1200, 1400, etc) - 1800 ADA and cardiac diet encouraged., Cardiac Your food should be the consistency of: Regular Your liquids should be the consistency of: Regular/Thin Discharge Activity: - - Activity parameters as noted. May resume sexual activity in: 1-2 weeks Weight Bearing Status: Weight bearing as tolerated Call your doctor if your incision/area has: Continuous Slow Oozing, Sudden Increased Bleeding, Increased Pain/ Swelling, Increased Redness, Foul Smelling Discharge, Swelling at the incision site Call your doctor if you observe: Fever of 101 or Higher, Inability to urinate, Inability to have a bowel movement, Shortness of breath, Dizziness, Fainting spells, Chest pain, Uncontrolled pain Instructions: Symptoms of a Heart Attack, Diabetes and Heart Disease, Recognizing a Heart Attack or Angina, First Aid: Heart Attacks, Understanding Coronary Artery Disease (CAD), What Is High Blood Pressure?, Discharge Instructions for Heart Attack Additional Instructions: CARDIOLOGY PCI CATH INSTRUCTIONS. Lifting: Must be less than 5 lbs for 5 days, No restrictions after 14 days. Shower: Yes. Climb stairs: Yes. Bathing in tub or submerged water: No, until cleared per Cardiology at follow-up (call office if any concerns [phone] and may leave voicemail if after hours). Walkin minutes 3 times daily, increase as tolerated. Driving: Resume in 7 days. Sexual activity: Resume in 14 days. Regular activity: Resume 14 days Allergies/Adverse Reactions: Allergies acetaminophen [From Tylenol] Allergy (Verified 03/07/18 21:50) Angioedema aspirin Allergy (Verified 03/07/18 21:50) Anaphylaxis ibuprofen [From Motrin] Allergy (Verified 03/07/18 21:50) Anaphylaxis metformin Allergy (Verified 03/07/18 21:50) Swelling pollen extracts Allergy (Verified 03/07/18 21:50) Hives caffeine [From Excedrin Migraine] Adverse Reaction (Severe, Verified 03/07/18 21 :50) Face swelling morphine Adverse Reaction (Verified 03/07/18 21:50) Other REDDNESS AND ITCHING TO IV SITE Medications to take at Discharge Citalopram [Celexa] 10 mg PO DAILY 08/02/15 Cyclobenzaprine [Flexeril] 10 mg PO TID 08/02/15 Oxybutynin [Ditropan] 5 mg PO DAILY 08/02/15 Ranitidine [Zantac] 300 mg PO BID 08/02/15 Cholecalciferol (VIT D3) [Vitamin D3] 1,000 unit PO BID 08/17/15 B12/Levomefolate Calcium/B-6 [Foltx Tablet] 1 ea PO DAILY 11/17/15 Esomeprazole Mag Trihydrate [Nexium] 40 mg PO BID 03/05/16 Hydroxyzine HCl 25 mg PO 4X/DAY 12/02/17 gabapentin 600 mg tablet 600 mg PO TID tab 01/23/18 glipizide ER 2.5 mg tablet, extended release 24 hr 2.5 mg PO QDAY 01/23/18 Atorvastatin Calcium [Lipitor] 80 mg PO QHS #30 tab 03/09/18 Cilostazol 100 mg PO BID #60 tab 03/09/18 Isosorbide Mononitrate [Imdur] 30 mg PO DAILY #30 tab 03/09/18 Metoprolol Succinate [Toprol Xl] 25 mg PO DAILY #30 tab 03/09/18 Nitroglycerin [Nitrostat] 0.4 mg SUBLINGUAL Q5M PRN #10 tab 03/09/18 Ticagrelor [Brilinta] 90 mg PO BID #60 tab 03/09/18 The following prescriptions were given: Atorvastatin Calcium [Lipitor] 80 mg PO QHS #30 tab Isosorbide Mononitrate [Imdur] 30 mg PO DAILY #30 tab Metoprolol Succinate [Toprol Xl] 25 mg PO DAILY #30 tab Nitroglycerin [Nitrostat] 0.4 mg SUBLINGUAL Q5M PRN #10 tab PRN Reason: Chest Pain Cilostazol 100 mg PO BID #60 tab Ticagrelor [Brilinta] 90 mg PO BID #60 tab Primary Care Physician: Olivier Oates MD [Primary Care Provider] - Please follow up with your Primary Care Physician in: Follow-up within 3-5 days to review admission. Please Follow Up With: Ronnie Franco MD When: Follow-up as recommended or 1 week w/ EYE[employer] CUTTER. Proposed Discharge Date: 03/09/18
[2018-03-09 07:10] LABS: Bedside Glucose 146 mg/dL (70-110)
--- NOTE | 2018-03-09 08:07 | PCM.DC.SUM ---
Discharge Date and Diagnosis - Problem List Patient Problems: Active and Suspected Problems (Last Updated 01/21/18 @ 12:36 by Jaye Loco) STEMI (ST elevation myocardial infarction) (Acute) Date of Admission: 03/07/18 Date of Discharge: 03/09/18 - Primary Discharge Diagnosis Active and Suspected Problems (Last Updated 01/21/18 @ 12:36 by Jaye Loco) (1) Chest Pain w/ Acute inferior STEMI (2) Acute kidney injury (3) CAD (4) Diabetes mellitus type II (5) Hypertension (6) Hyperlipidemia (7) Obesity (8) Hx Tobacco Abuse (9) GERD - Secondary Discharge Diagnosis Chronic Problems (Last Updated 01/21/18 @ 12:36 by Jaye Loco) Smoker (Chronic) Coronary angioplasty status (Chronic) Nicotine abuse (Chronic) Left atrial enlargement (Chronic) Other half-way (current) drug therapy (Chronic) Aortic root dilatation (Chronic) Atherosclerotic heart disease of [place] coronary artery with angina pectoris with documented spasm (Chronic) Presence of coronary angioplasty implant and graft (Chronic) PTCA with BMS to RCA 11/24; C w/PCI of RCA Acute ST segment elevation [place] (Chronic) Smoker (Chronic) Essential (primary) hypertension (Chronic) CAD (coronary artery disease) (Chronic) hx AMI 1 stent Seasonal allergies (Chronic) Overactive bladder (Chronic) spinal stenosis (Chronic) Hyperlipidemia (Chronic) Diabetes (Chronic) with diabetic neuropathy Hospital Course and Treatment Dr. Francisco Cardiology Operations: None, - Procedures: 2-D Echocardiogram, Cardiac catheterization, EKG Summary of Care Provided: The patient is a 47 y/o M w/ PMHx: HTN, HLD, Tobacco use, CAD s/p PCI w/ PTCA with BMS to RCA 11/24; LHC w/PCI of RCA, Chronic back pain w/ spinal stenosis, Obesity who presented to the [facility] ED on 03/07/18 with sudden onset L sided chest pain, severe and crushing sensation while doing yard work w/ dyspnea and diaphoresis. EKG in ED w/ ST segment elevation inferiorly. Patient loaded with Plavix and heparin as well as administered IV metoprolol w/ transition for cardiac catheterization which revealed totally occluded proximal RCA with in-stent thrombosis with balloon angioplasty performed with aspiration thrombectomy with some distal embolization of the clot noted in the right posterior descending artery which was also treated with balloon angioplasty and clot embolization in the right posterior lateral ventricle branch treated with balloon angioplasty and also noted culprit lesion with an in-stent restenosis therefore a resolute integrity drug-eluting stent was deployed. Admitted to the ICU, maintained on a monitored bed, continued serial cardiac enzymes and EKGs. Maintained on integrilin until completion of drip. Continued medical management w/ pletal, brillinta, BB, statin w/ AM FLP w/ triglycerides 203, cholesterol 154, LDL 83, VLDL 41, HDL 30. Cardiology recommendations lifelong continuation of Brilinta and Pletal with consideration for future aspirin desensitization. Upon admission patient with TRAVIS secondary to acute presentation and likely decreased intake on day of presentation. Admission BUN/Cr 11/1.67, prior baseline creatinine noted to be 0.9-1. Hydrated, repeat 03/08/18 BUN/Cr 12/1.12. HgBA1c 8.2%, encouraged lifestyle and diet changes, medication compliance and close PCP follow-up. Nutrition consultation for education and teaching prior to discharge. Encouraged continued tobacco cessation w/ inpatient consultation per RT. Patient discharged to home in stable condition with recommended PCP and Cardiology follow-up. DAY OF DISCHARGE PROGRESS NOTE: Subjective: Patient without acute event overnight per self and nursing report. Patient since day prior denied any recurrent substernal chest discomfort. No telemetry events overnight. Complete Integrilin drip. Patient denies fever, chills, nausea, emesis, abdominal pain, chest pain or dyspnea. Patient agreeable to discharge to home. Patient will be discharged with follow-up with primary care physician within 3-5 days in addition to cardiology per the recommendation. Objective: Afebrile, heart rate 61, BP 108/90, respiratory rate 16, 98% on room air. Physical Examination: General: awake, alert, oriented x 3 and cooperative, seated upright in the ICU bed, no further chest discomfort. Skin: normal color, turgor, no icterus, cyanosis except right groin status post cardiac catheterization with no active bleeding and open to air. HEENT: AT/NC, EOMI, PERRLA, MMM. Lungs: CTA bilaterally, moderate effort, mild decrease BL bases, no rales, ronchi or wheezing. Heart: Regular rate and rhythm; no gallop, rub audible. Abdomen: soft, obese, NTTP, ND, normal BS, no HSM. Extremities: no cyanosis, clubbing, or edema. Neurological: patient awake, alert, oriented x 3; cognitive function intact; pupils equally reactive to light and accomodation; cranial nerves II-XII grossly normal, moving all 4 extremities, no focal deficits, strength improved, mildly to moderately globally decreased secondary to acute presentation. Psychiatric: affect appears normal, no acute evidence of depressive or anxiety feelings. Assessment and Plan: Please see hospital summary above. Discharge Activity: - - Activity parameters as noted. May resume sexual activity in: 1-2 weeks Weight Bearing Status: Weight bearing as tolerated Call your doctor if your incision/area has: Continuous Slow Oozing, Sudden Increased Bleeding, Increased Pain/ Swelling, Increased Redness, Foul Smelling Discharge, Swelling at the incision site Call your doctor if you observe: Fever of 101 or Higher, Inability to urinate, Inability to have a bowel movement, Shortness of breath, Dizziness, Fainting spells, Chest pain, Uncontrolled pain Home Medications: Medications to take at Discharge Citalopram [Celexa] 10 mg PO DAILY 08/02/15 Cyclobenzaprine [Flexeril] 10 mg PO TID 08/02/15 Oxybutynin [Ditropan] 5 mg PO DAILY 08/02/15 Ranitidine [Zantac] 300 mg PO BID 08/02/15 Cholecalciferol (VIT D3) [Vitamin D3] 1,000 unit PO BID 08/17/15 B12/Levomefolate Calcium/B-6 [Foltx Tablet] 1 ea PO DAILY 11/17/15 Esomeprazole Mag Trihydrate [Nexium] 40 mg PO BID 03/05/16 Hydroxyzine HCl 25 mg PO 4X/DAY 12/02/17 gabapentin 600 mg tablet 600 mg PO TID tab 01/23/18 glipizide ER 2.5 mg tablet, extended release 24 hr 2.5 mg PO QDAY 01/23/18 Atorvastatin Calcium [Lipitor] 80 mg PO QHS #30 tab 03/09/18 Cilostazol 100 mg PO BID #60 tab 03/09/18 Isosorbide Mononitrate [Imdur] 30 mg PO DAILY #30 tab 03/09/18 Metoprolol Succinate [Toprol Xl] 25 mg PO DAILY #30 tab 03/09/18 Nitroglycerin [Nitrostat] 0.4 mg SUBLINGUAL Q5M PRN #10 tab 03/09/18 Ticagrelor [Brilinta] 90 mg PO BID #60 tab 03/09/18 Following Prescrptions Were Given to Patient: Atorvastatin Calcium [Lipitor] 80 mg PO QHS #30 tab Isosorbide Mononitrate [Imdur] 30 mg PO DAILY #30 tab Metoprolol Succinate [Toprol Xl] 25 mg PO DAILY #30 tab Nitroglycerin [Nitrostat] 0.4 mg SUBLINGUAL Q5M PRN #10 tab PRN Reason: Chest Pain Cilostazol 100 mg PO BID #60 tab Ticagrelor [Brilinta] 90 mg PO BID #60 tab Primary Care Physician: Olivier Oates MD [Primary Care Provider] - Please follow up with your Primary Care Physician in: Follow-up within 3-5 days to review admission. Please Follow Up With: Ronnie Franco MD When: Follow-up as recommended or 1 week w/ [employer]LLER [employer]NER. Patient Instructions: Symptoms of a Heart Attack, Diabetes and Heart Disease, First Aid: Heart Attacks, Recognizing a Heart Attack or Angina, Understanding Coronary Artery Disease (CAD), What Is High Blood Pressure?, Discharge Instructions for Heart Attack Medical Necessity - Tobacco Use Smoking Status: Current every day smoker Meaningful Use Info Meaningful Use Diagnoses (Choose all that apply): AMI - AMI Aspirin given w/in 24hrs of arrival?: No Reason no aspirin w/in 24hrs of arrival?: Allergy ASA at discharge?: No Reason ASA not ordered:: Allergy Statins at discharge?: Yes Yoel/ARB at discharge?: No Reason Yoel/ARB not ordered:: Hypotension Beta Delia at discharge?: Yes Done w/ Acute UT measure.: Yes Code Visit Inpatient E&M: 70620 Disch Hosp
--- NOTE | 2018-03-09 08:16 | DS.PCM_ITS ---
Discharge Date and Diagnosis - Problem List Patient Problems: Active and Suspected Problems (Last Updated 01/21/18 @ 12:36 by Jaye Loco) STEMI (ST elevation myocardial infarction) (Acute) Date of Admission: 03/07/18 Date of Discharge: 03/09/18 - Primary Discharge Diagnosis Active and Suspected Problems (Last Updated 01/21/18 @ 12:36 by Jaye Loco) (1) Chest Pain w/ Acute inferior STEMI (2) Acute kidney injury (3) CAD (4) Diabetes mellitus type II (5) Hypertension (6) Hyperlipidemia (7) Obesity (8) Hx Tobacco Abuse (9) GERD - Secondary Discharge Diagnosis Chronic Problems (Last Updated 01/21/18 @ 12:36 by Jaye Loco) Smoker (Chronic) Coronary angioplasty status (Chronic) Nicotine abuse (Chronic) Left atrial enlargement (Chronic) Other long-term (current) drug therapy (Chronic) Aortic root dilatation (Chronic) Atherosclerotic heart disease of [place] coronary artery with angina pectoris with documented spasm (Chronic) Presence of coronary angioplasty implant and graft (Chronic) PTCA with BMS to RCA 11/24; C w/PCI of RCA Acute ST segment elevation ID (Chronic) Smoker (Chronic) Essential (primary) hypertension (Chronic) CAD (coronary artery disease) (Chronic) hx AMI 1 stent Seasonal allergies (Chronic) Overactive bladder (Chronic) spinal stenosis (Chronic) Hyperlipidemia (Chronic) Diabetes (Chronic) with diabetic neuropathy Hospital Course and Treatment Dr. Francisco Cardiology Operations: None, - Procedures: 2-D Echocardiogram, Cardiac catheterization, EKG Summary of Care Provided: The patient is a 47 y/o M w/ PMHx: HTN, HLD, Tobacco use, CAD s/p PCI w/ PTCA with BMS to RCA 11/24; LHC w/PCI of RCA, Chronic back pain w/ spinal stenosis, Obesity who presented to the [facility] ED on 03/07/18 with sudden onset L sided chest pain, severe and crushing sensation while doing yard work w/ dyspnea and diaphoresis. EKG in ED w/ ST segment elevation inferiorly. Patient loaded with Plavix and heparin as well as administered IV metoprolol w/ transition for cardiac catheterization which revealed totally occluded proximal RCA with in- stent thrombosis with balloon angioplasty performed with aspiration thrombectomy with some distal embolization of the clot noted in the right posterior descending artery which was also treated with balloon angioplasty and clot embolization in the right posterior lateral ventricle branch treated with balloon angioplasty and also noted culprit lesion with an in-stent restenosis therefore a resolute integrity drug-eluting stent was deployed. Admitted to the ICU, maintained on a monitored bed, continued serial cardiac enzymes and EKGs. Maintained on integrilin until completion of drip. Continued medical management w/ pletal, brillinta, BB, statin w/ AM FLP w/ triglycerides 203, cholesterol 154 , LDL 83, VLDL 41, HDL 30. Cardiology recommendations lifelong continuation of Brilinta and Pletal with consideration for future aspirin desensitization. Upon admission patient with TRAVIS secondary to acute presentation and likely decreased intake on day of presentation. Admission BUN/Cr 11/1.67, prior baseline creatinine noted to be 0.9-1. Hydrated, repeat 03/08/18 BUN/Cr 12/1.12. HgBA1c 8.2%, encouraged lifestyle and diet changes, medication compliance and close PCP follow-up. Nutrition consultation for education and teaching prior to discharge. Encouraged continued tobacco cessation w/ inpatient consultation per RT. Patient discharged to home in stable condition with recommended PCP and Cardiology follow-up. DAY OF DISCHARGE PROGRESS NOTE: Subjective: Patient without acute event overnight per self and nursing report. Patient since day prior denied any recurrent substernal chest discomfort. No telemetry events overnight. Complete Integrilin drip. Patient denies fever, chills, nausea, emesis, abdominal pain, chest pain or dyspnea. Patient agreeable to discharge to home. Patient will be discharged with follow-up with primary care physician within 3-5 days in addition to cardiology per the recommendation. Objective: Afebrile, heart rate 61, BP 108/90, respiratory rate 16, 98% on room air. Physical Examination: General: awake, alert, oriented x 3 and cooperative, seated upright in the ICU bed, no further chest discomfort. Skin: normal color, turgor, no icterus, cyanosis except right groin status post cardiac catheterization with no active bleeding and open to air. HEENT: AT/NC, EOMI, PERRLA, MMM. Lungs: CTA bilaterally, moderate effort, mild decrease BL bases, no rales, ronchi or wheezing. Heart: Regular rate and rhythm; no gallop, rub audible. Abdomen: soft, obese, NTTP, ND, normal BS, no HSM. Extremities: no cyanosis, clubbing, or edema. Neurological: patient awake, alert, oriented x 3; cognitive function intact; pupils equally reactive to light and accomodation; cranial nerves II-XII grossly normal, moving all 4 extremities, no focal deficits, strength improved, mildly to moderately globally decreased secondary to acute presentation. Psychiatric: affect appears normal, no acute evidence of depressive or anxiety feelings. Assessment and Plan: Please see hospital summary above. Discharge Activity: - - Activity parameters as noted. May resume sexual activity in: 1-2 weeks Weight Bearing Status: Weight bearing as tolerated Call your doctor if your incision/area has: Continuous Slow Oozing, Sudden Increased Bleeding, Increased Pain/ Swelling, Increased Redness, Foul Smelling Discharge, Swelling at the incision site Call your doctor if you observe: Fever of 101 or Higher, Inability to urinate, Inability to have a bowel movement, Shortness of breath, Dizziness, Fainting spells, Chest pain, Uncontrolled pain Home Medications: Medications to take at Discharge Citalopram [Celexa] 10 mg PO DAILY 08/02/15 Cyclobenzaprine [Flexeril] 10 mg PO TID 08/02/15 Oxybutynin [Ditropan] 5 mg PO DAILY 08/02/15 Ranitidine [Zantac] 300 mg PO BID 08/02/15 Cholecalciferol (VIT D3) [Vitamin D3] 1,000 unit PO BID 08/17/15 B12/Levomefolate Calcium/B-6 [Foltx Tablet] 1 ea PO DAILY 11/17/15 Esomeprazole Mag Trihydrate [Nexium] 40 mg PO BID 03/05/16 Hydroxyzine HCl 25 mg PO 4X/DAY 12/02/17 gabapentin 600 mg tablet 600 mg PO TID tab 01/23/18 glipizide ER 2.5 mg tablet, extended release 24 hr 2.5 mg PO QDAY 01/23/18 Atorvastatin Calcium [Lipitor] 80 mg PO QHS #30 tab 03/09/18 Cilostazol 100 mg PO BID #60 tab 03/09/18 Isosorbide Mononitrate [Imdur] 30 mg PO DAILY #30 tab 03/09/18 Metoprolol Succinate [Toprol Xl] 25 mg PO DAILY #30 tab 03/09/18 Nitroglycerin [Nitrostat] 0.4 mg SUBLINGUAL Q5M PRN #10 tab 03/09/18 Ticagrelor [Brilinta] 90 mg PO BID #60 tab 03/09/18 Following Prescrptions Were Given to Patient: Atorvastatin Calcium [Lipitor] 80 mg PO QHS #30 tab Isosorbide Mononitrate [Imdur] 30 mg PO DAILY #30 tab Metoprolol Succinate [Toprol Xl] 25 mg PO DAILY #30 tab Nitroglycerin [Nitrostat] 0.4 mg SUBLINGUAL Q5M PRN #10 tab PRN Reason: Chest Pain Cilostazol 100 mg PO BID #60 tab Ticagrelor [Brilinta] 90 mg PO BID #60 tab Primary Care Physician: Olivier Oates MD [Primary Care Provider] - Please follow up with your Primary Care Physician in: Follow-up within 3-5 days to review admission. Please Follow Up With: Ronnie Franco MD When: Follow-up as recommended or 1 week w/ PVC LOADER. Patient Instructions: Symptoms of a Heart Attack, Diabetes and Heart Disease, First Aid: Heart Attacks, Recognizing a Heart Attack or Angina, Understanding Coronary Artery Disease (CAD), What Is High Blood Pressure?, Discharge Instructions for Heart Attack Medical Necessity - Tobacco Use Smoking Status: Current every day smoker Meaningful Use Info Meaningful Use Diagnoses (Choose all that apply): AMI - AMI Aspirin given w/in 24hrs of arrival?: No Reason no aspirin w/in 24hrs of arrival?: Allergy ASA at discharge?: No Reason ASA not ordered:: Allergy Statins at discharge?: Yes Yoel/ARB at discharge?: No Reason Yoel/ARB not ordered:: Hypotension Beta Delia at discharge?: Yes Done w/ Acute ID measure.: Yes Code Visit Inpatient E&M: 02235 Disch Hosp
[2018-03-09] MEDS: Famotidine 20 MG Tablet 40 MG PO (08:38)
[2018-03-09] MEDS: hydrOXYzine PAM 25 MG Capsule PO (08:38)
[2018-03-09] MEDS: Pantoprazole Sodium 40 MG Tablet PO (08:38)
[2018-03-09] MEDS: Cilostazol 50 MG Tablet 100 MG PO (08:38)
[2018-03-09] MEDS: Vitamin B Comp W-C Capsule 1 CAP PO (08:39)
[2018-03-09] MEDS: TICAGRELOR 90 MG TABLET PO (08:39)
[2018-03-09] MEDS: Isosorbide Mononitrate 30 MG Tablet PO (08:40)
[2018-03-09] MEDS: Oxybutynin 5 MG Tablet PO (08:41)
[2018-03-09] MEDS: Metoprolol(XL)Succ 25 MG Tablet PO (08:42)
--- NOTE | 2018-03-11 13:24 | CRPHASE1_ITS ---
Patient Data/Charges Phase II Referral:: [facility] - PT DISCHARGED. CR ORDER RECEIVED. CALLED PT TO SCHED. APPT. CR BOOKLET MAILED Risk Factors/Lifestyle Smoking Status: Current every day smoker Hx Hypertension: Yes Hx Diabetes Mellitus Type 2: Yes Hx Metabolic Disorders: Yes Hx Dyslipidemia: Yes Hx Obesity: Yes Height: 6 ft 4 in - BMI 32.8 Stress: Home/Family Risk Factor for Sedentary Lifestyle: Highest Risk Family History: Family History (Last Reviewed 01/23/18 @ 10:08 by Lizzie Galindo) Grandfather CAD (coronary artery disease) Father CAD (coronary artery disease) Hypertension Heart disease Myocardial infarction, Onset Age: 37 Brother CAD (coronary artery disease) Hypertension Hyperlipemia Grandmother Hyperlipemia Heart disease Diabetes Sister Cancer Other Colon cancer Family History: Heart Disease, Hypertension Past Cardiac Illness: Coronary Artery Disease, Myocardial Infarction, Previous PCI w/Stent Laboratory Values: Cardiac Rehab Phase I Labs Hemoglobin A1c 8.2 % (4.2-6.3) H 03/08/18 06:10 Triglycerides 203 mg/dL (-199) H 03/08/18 06:10 Cholesterol 154 mg/dL (200) 03/08/18 06:10 LDL Cholesterol 83 mg/dL (0-130) 03/08/18 06:10 HDL Cholesterol 30 mg/dL (40-) L 03/08/18 06:10 Phase I Education Given On:: [place], Nutrition, Antiplatelet medication, Diabetes - Type II Issues Affecting Care:: None Knowledge of Condition:: Yes Learning Preferences: Verbal, Written Hospital Course Presenting Symptoms:: STEMI Medical/Surgical History PA:: Yes - PAST PA 07/2017 CAD:: Yes Diabetes:: Yes Diabetes Type II:: Yes Hypertension:: Yes Dyslipidemia:: Yes PTCA:: Yes - 2009 Discharge/Home/Social Eval Discharge Disposition: Home
--- NOTE | 2018-03-11 13:28 | CRPH1.INSTRU ---
General Education CAD and cardiac anatomy and function:: Patient communicates acknowledgment Explanation of diagnoses and procedures:: Patient communicates acknowledgment Sign/Symptoms of SD:: Patient communicates acknowledgment Antiplatelet therapy: Patient communicates acknowledgment Proper use of NTG-SL: Patient communicates acknowledgment Emergency procedures and activation of EMS: Patient communicates acknowledgment Compliance of all prescribed medications: Patient communicates acknowledgment Smoking Patient Nicotine/Smoking Risk Factors Are:: Cigarettes Recommendations Include:: Second-hand smoke recommendation, Participation in a smoking cessation program, Previous smoker; encourage continued cessation Nicotine/Smoking Response Code:: Patient communicates acknowledgment Dyslipidemia Patient Dyslipidemia Risk Factors Are:: Total Cholesterol, Triglycerides, HDL, LDL Recommendations Include:: Lipid profile provided, Reviewed NCEP/ATP guidelines, Therapeutic Lifestyle Change dietary guidelines Dyslipidemia Response Code:: Patient communicates acknowledgment Overweight/Obesity Patient Overweight/Obesity Risk Factors Are:: Obesity - > or = 30 Recommendations Include:: Weight loss of 5-10%, Reduced calorie diet, Exercise 5-7 times/week Overweight/Obesity:: Patient communicates acknowledgment Hypertension Recommendations Include:: BP <130/80 if diabetic, DASH dietary guidelines, Decrease/maintain normal body weight, Moderation of ETOH Hypertension:: Patient communicates acknowledgment Heart Disease Patient Heart Disease Risk Factors Are:: Previous cardiac event Recommendations Include:: Educated family members of their risk Heart Disease Response Code:: Patient communicates acknowledgment Diabetes Patient Diabetes Risk Factors Are:: Elevated blood sugars Recommendations Include:: Maintain fasting blood sugars 70-110 md/dL, Maintain HgbA1c of 6% or less, Monitor blood sugar as prescribed, Diabetic dietary guidelines, Decrease/maintain body weight Diabetes:: Patient communicates acknowledgment Metabolic Syndrome Patient Metabolic Syndrome Risk Factors Are [3 of 5]:: Fasting blood sugar > 100 mg/dL, Waist circumference > 35 [female] or 40 [male], High triglyceride >150, Hypertension, Low HDL <40 [male] or < 50 [female] Recommendations Include:: Reinforce compliance to risk factor modifications, Patient is diabetic, Encouraged follow-up with Primary Care Physician Metabolic Syndrome Response Code:: Patient communicates acknowledgment Sedentary Patient Sedentary Risk Factors Are:: Lack of regular exercise Recommendations Include:: Aerobic exercise 5-7 times/week for 20-30 minutes continuously, Benefits of regular exercise, Discussed home walking program, Monitored Outpatient Cardiac Rehab Sedentary Response Code:: Patient communicates acknowledgment Stress Recommendations Include:: Identification of stressors, and assessment of coping skills, Stress management techniques Stress Response Code:: Patient communicates acknowledgment
--- NOTE | 2018-03-14 14:08 | CASEMGMT ---
AMRIT ROGERS DC Phone Call Note. Intro role of CM to patient via phone. Pt states he is feeling much improved, is taking prescriptions as ordered. He has f/u with Dr. Duran and will be seeing Dr. Franco on April 01. He is scheduled for cardiac rehab. AMRIT ROGERS inquired about Brillinta. Pt received 30 day supply, however further prescriptions will need prior authorization. AMRIT ROGERS recommended contacting Dr. Franco's nurse to begin the prior authorization process. Pt is able to do this. No further concerns. AMRIT ROGERS thanked him for using [facility]. Devon SENIOR RN ACM
== END 2018-03-09 10:00 | disposition home or self-care (01) | DRG 116 ==
LOC: ED 21:54 → ICU 22:10
PROVIDERS: Internal Medicine; Admitting Provider Internal Medicine Cardiovascular Disease; Emergency Provider Emergency Medicine; Family Provider Family Medicine; PCP Family Medicine; Visit Provider Family Medicine
DX: I21.11 ST elevation (STEMI) myocardial infarction involving right coronary artery (principal); N17.9 Acute kidney failure, unspecified; I25.10 Atherosclerotic heart disease of native coronary artery without angina pectoris; I10 Essential (primary) hypertension; E78.5 Hyperlipidemia, unspecified; E66.9 Obesity, unspecified; K21.9 Gastro-esophageal reflux disease without esophagitis; F17.200 Nicotine dependence, unspecified, uncomplicated; J30.2 Other seasonal allergic rhinitis; N32.81 Overactive bladder; E11.40 Type 2 diabetes mellitus with diabetic neuropathy, unspecified; Z88.6 Allergy status to analgesic agent; Z95.5 Presence of coronary angioplasty implant and graft; Z90.49 Acquired absence of other specified parts of digestive tract; Z68.33 Body mass index [BMI] 33.0-33.9, adult
CPT/HCPCS: 71045; 80048; 80053; 80061; 82962; 83036; 84484; 85025; 85027; 85347; 85610; 85730; 87641; 92941; 92978; 93005; 93306; 93458; 97802; 99152; 99153; 99283; J7030; Q9967; A4216; C1725; C1753; C1757; C1760; C1769; C1874; C1887; C1894; C9606; J1327

== ENCOUNTER → 2018-03-12 13:23 | Outpatient (CLI) | payer MEDICAID, SELFPAY ==
--- NOTE | 2018-03-12 13:36 | RAD_ITS ---
STUDY: X-RAY CHEST REASON FOR EXAM: Male, 47 years old. Recent coronary stents. Now shortness of breath. TECHNIQUE: PA and lateral views of the chest. COMPARISON: Portable AP upright chest x-ray March 07, 2018. FINDINGS: The lungs are clear and expanded. There is no demonstrated pleural abnormality. Normal size heart. There are endovascular stent(s) present. Normal mediastinum and irena. Normal visualized pulmonary arteries. Normal visualized aortic arch and descending thoracic aorta. There are stable degenerative changes of the visualized thoracic spine, as well as slight mid to lower thoracic dextroscoliosis. Normal visualized ribs, clavicles, and shoulders. There is no demonstrated abnormality of the visualized soft tissue structures of the upper abdomen. RAD/Chest PA and Lateral IMPRESSION: Endovascular coronary artery stent identified. No acute cardiopulmonary disease. Electronically Signed: Lauro Howell MD at 13:52 EDT , Service support ,
[2018-03-12 15:50] LABS: Absolute Lymphocyte Count 1.57 X10^3/ul (0.83-4.51); Basophil# 0.02 X10^3/uL; Basophil% 0.3 % (0-1); Eosinophils% 2.7 % (0-5); Hematocrit 44.8 % (40-54); Hemoglobin 14.7 g/dl (13.0-16.5); Lymphocyte # 1.57 X10^3/ul (4.0); Lymphocyte % 21.3 % (19-41); Mean Corp Hgb Conc 32.8 g/gl (32-36); Mean Corpuscular Hgb 31.1 pg (27.0-32.0); Mean Corpuscular Volume 94.7 fL (80-94); Mean Platelet Vol. 10.6 fl (6.2-12.0); Monocyte# 0.52 X10^3/uL; Monocyte% 7.1 % (0-10); Neutrophil # 5.04 X10^3/uL (2.7-7.7); Neutrophil % 68.3 % (47-70); Platelet Count 280 K/mm3 (150-450); RBC Distribution Width CV 13.3 % (11.6-14.6); RBC Distribution Width SD 45.6 fl (35.1-43.9); Red Blood Count 4.73 M/mm3 (4.6-6.2); White Blood Count 7.4 K/mm3 (4.4-11.0)
[2018-03-12 16:00] LABS: Anion Gap 9 (5-15); BUN 9 mg/dL (7-18); BUN/Creat Ratio 8.2 RATIO (10-20); Calcium,Total 9.3 mg/dL (8.5-10.1); Chloride 102 mmol/L (98-107); EST Glomerular Filtration Rate 76 mL/min (>60); Est Glom Filt Rate - Afr Amer 92 mL/min (>60); Glucose 172 mg/dL (74-106); Potassium 3.8 mmol/L (3.5-5.1); Sodium Level 137 mmol/L (136-145)
[2018-03-12 16:04] LABS: POSITIVE COUNT NO; POSITIVE DIFFERENTIAL NO; POSITIVE MORPHOLOGY NO
== END ==
PROVIDERS: Family Provider Family Medicine; PCP Family Medicine; Visit Provider Family Medicine
DX: I25.10 Atherosclerotic heart disease of native coronary artery without angina pectoris (principal); R06.00 Dyspnea, unspecified
CPT/HCPCS: 36415; 71046; 80048; 85025

== ENCOUNTER → 2018-03-28 12:50 | Outpatient (CLI) | payer MEDICAID, SELFPAY ==
--- NOTE | 2018-03-28 12:54 | PCM.CR.HP2 ---
CR - History & Physical - General Arrival date:: 03/28/18 Arrival time:: 12:56 Date of Referral:: 03/11/18 Date of CR Evaluation:: 03/28/18 Referring Physician: Dr. Ronnie Franco Primary Diagnosis: STEMI f/b PCI w/coronary stent placement - History of Present Cardiac Event Onset Date: Enter Onset Date of cardiac illnesses in Comment field below Acute Myocardial Infarction within 12 months:: Yes - STEMI 03/07/2018 PTCA or coronary stenting:: Yes - PCI w/ coronary stent03/07/2018 Type of Symptoms:: feels tightness in the chest, hard to breath and indigestion. Interventions with present event:: July 26, 2017 previous stent, October 2010. Were there any complications?: none; more getting used to the Brilinta medication - Medications Home Medications: Ambulatory Orders Medication Instructions Recorded Citalopram [Celexa] 10 mg PO DAILY 08/02/15 Cyclobenzaprine [Flexeril] 10 mg PO TID 08/02/15 Oxybutynin [Ditropan] 5 mg PO DAILY 08/02/15 Ranitidine [Zantac] 300 mg PO BID 08/02/15 Cholecalciferol (VIT D3) [Vitamin 1,000 unit PO BID 08/17/15 D3] B12/Levomefolate Calcium/B-6 1 ea PO DAILY 11/17/15 [Foltx Tablet] Esomeprazole Mag Trihydrate 40 mg PO BID 03/05/16 [Nexium] Hydroxyzine HCl 25 mg PO 4X/DAY 12/02/17 gabapentin 600 mg tablet 600 mg PO TID tab 01/23/18 glipizide ER 2.5 mg tablet, 2.5 mg PO QDAY 01/23/18 extended release 24 hr Atorvastatin Calcium [Lipitor] 80 mg PO QHS #30 tab 03/09/18 Cilostazol 100 mg PO BID #60 tab 03/09/18 Isosorbide Mononitrate [Imdur] 30 mg PO DAILY #30 tab 03/09/18 Metoprolol Succinate [Toprol Xl] 25 mg PO DAILY #30 tab 03/09/18 Nitroglycerin [Nitrostat] 0.4 mg SUBLINGUAL Q5M PRN #10 tab 03/09/18 Ticagrelor [Brilinta] 90 mg PO BID #60 tab 03/09/18 - Allergies Allergies/Adverse Reactions: Allergies acetaminophen [From Tylenol] Allergy (Verified 03/07/18 21:50) Angioedema aspirin Allergy (Verified 03/07/18 21:50) Anaphylaxis ibuprofen [From Motrin] Allergy (Verified 03/07/18 21:50) Anaphylaxis metformin Allergy (Verified 03/07/18 21:50) Swelling pollen extracts Allergy (Verified 03/07/18 21:50) Hives caffeine [From Excedrin Migraine] Adverse Reaction (Severe, Verified 03/07/18 21:50) Face swelling morphine Adverse Reaction (Verified 03/07/18 21:50) Other REDDNESS AND ITCHING TO IV SITE - Sleep Disorder Evaluation Hx of Sleep Apnea: Yes Do you snore loudly (louder than talking or can be heard through closed doors)?: Yes History of Hypertension (for STOP score): Yes Advanced Directives - Advanced Directives Power of Driver: No Living Will: No Advance Directives Information Provided: Yes Advance Directives on File: No DNR Order?:: No - MOLST See MOLST form: No Past Medical History - Past Medical Illness Medical History: Past Medical History (Last Updated 01/21/18 @ 12:36 by Jaye Loco) Nicotine abuse (Chronic) Z72.0 Left atrial enlargement (Chronic) I51.7 Other longterm (current) drug therapy (Chronic) Z79.899 Aortic root dilatation (Chronic) I77.810 Atherosclerotic heart disease of [place] coronary artery with angina pectoris with documented spasm (Chronic) I25.[address] segment elevation AR (Chronic) I21.3 Cellulitis of right hand (Acute) L03.113 Smoker (Chronic) F17.200 Cat bite of right hand (Acute) S61.451A, W55.01XA Cat bite (Acute) W55.01XA cat bite ulnar aspect right palm Essential (primary) hypertension (Chronic) I10 CAD (coronary artery disease) (Chronic) I25.10 hx AMI 1 stent Seasonal allergies (Chronic) J30.2 Overactive bladder (Chronic) N32.81 spinal stenosis (Chronic) Hyperlipidemia (Chronic) E78.5 Diabetes (Chronic) E11.9 with diabetic neuropathy ARF (acute renal failure) (Acute) Hypotension (Acute) I95.9 STEMI (ST elevation myocardial infarction) (Resolved) 08/30 Anxiety F41.9 Chest pain R07.9 Intermittent claudication I73.9 Atherosclerosis of [place] coronary artery of [place] heart without angina pectoris I25.10 SEMAJ (obstructive sleep apnea) G47.33 - Past Surgical History Surgical History: Past Surgical History (Last Updated 01/23/18 @ 10:08 by Lizzie Galindo) History of lumbar surgery (Resolved) Z98.890 3 History of hernia repair (Resolved) Z98.890, Z87.19 3 Hx of cholecystectomy (Resolved) Z90.49 3 years ago Coronary angioplasty status (Chronic) Z98.61 Presence of coronary angioplasty implant and graft (Chronic) Z95.5 PTCA with BMS to RCA 11/24; [facility] w/PCI of RCA History of percutaneous coronary intervention Z98.890 PTCA/BMS to RCA 11/2010, PTCA/BMS to RCA 07/2017 H/O arthroscopy of right knee Onset Date: ~2000 Z98.890 History of left heart catheterization Z98.890 11/2010, 03/2015, Surgical History: angioplasty, cholecystectomy, - - 3 hernia,both knees,spinal injections, 1 stent in his heart - Family History Summary Family History: Family History (Last Reviewed 01/23/18 @ 10:08 by Lizzie Galindo) Grandfather CAD (coronary artery disease) less than 55 Father CAD (coronary artery disease) Hypertension Heart disease Myocardial infarction, Onset Age: 37 x5 Brother CAD (coronary artery disease) less than 55 Hypertension Hyperlipemia Grandmother Hyperlipemia Heart disease Diabetes Sister Cancer cervical cancer Other Colon cancer Social History - Smoking History Smoking Status: Current every day smoker Years Smokin Packs Smoked per Day: 1 Hx Smoking Cessation Date: Today; January Smoking Cessation to see patient Hx Tobacco Use: Yes Hx Smoking Exposure: Yes - Alcohol Use Alcohol Usage: Yes - socially, holiday and special occasions - Substance Abuse Hx Substance Use: No - Occupation Occupation (List type of work in comments):: 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 - Safety Do you feel safe in your surroundings?: Yes - Assistance Do you need any assistance at home?: none Review of Systems - Review of Systems Hints: Right click = Denies (Slash). Left click = Reports ([place]) Review of Present Symptoms: Reports: Shortness of Breath at Rest, Shortness of Breath with Exertion, Appetite - Special Diet - low calorie diet, cut out fatty foods, more fresh fruits and vegetables. Did do the nutrition program with Meera haseeb in [facility]., Sleep - Normal - CPAP ends up takiing it off in through the night when sound of sleep. Say 98% of the time does nto wear it.. Denies: Dizziness/Lightheadedness, Fatigue, Heart Arrhythmia/Irregularities, Appetite - Normal - gotten better; sometimes have to force myself to eat due to diabetic., Sexual Changes - Pain Is Patient Pain Free?: No Pain Location: none Pain Level: 0/10 Risk Factor Assessment - Chief Complaint Chief Complaint: Patient is a 47 year old male of Dr. Ronnie Franco who presents to cardiac rehab today following his recent STEMI and PCI w/coronary stent procedure back in February 2018. - Vital Signs Temperature: 98.7 F Respiratory Rate: 14 Pulse Ox: 97 Blood Pressure: 142/88 Nailbeds:: pink, normal capillary - Pulse Pulse Rate: 77 Pulse Rhythm: Regular - Hypertension Blood Pressure Sitting - Left Arm: 142/88 - Diabetes Diabetic History: Type II, Medication Dependent - typically FSBS run under 200. Nutrition Referral for Diabetes: Yes - Obesity Height: 6 ft 4 in Weight:: 278 lb Weight in Pounds: 278.0 lbs Weight Source: Standing Scale Body Mass Index (BMI): 33.8 Nutritional Referral for Obesity: Yes - Physical Inactivity Physical Inactivity: Recreational activity - walking 1-2 days per week <15 minutes - Risk Stratification Risk Guidelines: Lowest Risk: Risk Factor for Dyslipidemia, Risk Factor for Diabetes, Risk Factor for Depression, Moderate Risk: Risk Factor for Hypertension, Risk Factor for Sedentary Lifestyle, Highest Risk: Risk Factor for Smoking, Risk Factor for Obesity - For Smoking Smoking Risk Guidelines: Smoking Low Risk: None or quit greater than 6 months ago. Smoking Moderate Risk: Smoker or quit 6 months or less ago. Smoking High Risk: Smoker - For Dyslipidemia Dyslipidemia Risk Guidelines: Low Risk: Moderate Risk: High Risk: 15-25% fat 25.1-29% fat >/= 30% fat. <7% sat fat 7-9% sat fat >9% sat fat. <150 mg chol 150-299 mg chol >/= 300 mg chol. LDL <100 LDL 100-129 LDL >/= 130. Chol/HDL ratio <5.0 Chol/HDL ratio 5.0-6.0 Chol/HDL ratio >6.0. Triglycerides <100 Triglycerides 100-149 Triglycerides >/= 150 - For Diabetes Mellitus Diabetes Risk Guidelines: Diabetes Low Risk: HgA1c <6.5% and/or FBG <120. Diabetes Moderate Risk: HgA1c 6.6-7.9% and/or FBG 120-180. Diabetes High Risk: HgA1c >/= 8% and/or FBG >180 - For Obesity/Overweight Obesity/Overweight Risk Guidelines: Obesity Low Risk: BMI <25.0. Obesity Moderate Risk: BMI 25-29.9. Obesity High Risk: BMI >/= 30.0 - For Hypertension Hypertension Risk Guidelines: Hypertension Low Risk: Systolic <120 and Diastolic <80. Hypertension Moderate Risk: Systolic 120-139 and Diastolic 80-89. Hypertension High Risk: Systolic >/= 140 and Diastolic >/= 90 - For Sedentary Lifestyle Sedentary Lifestyle Risk Guidelines: Sedentary Lifestyle Low Risk: >/= 1,500 kcal/week. Sedentary Lifestyle Moderate Risk: 700-1,499 kcal/week. Sedentary Lifestyle High Risk: < 700 kcal/week - For Depression Depression Risk Guidelines: Depression Low Risk: Not clinically depressed. Depression Moderate Risk: Mildly depressed. Depression High Risk: Clinically depressed - Family History Family History: Family History (Last Reviewed 01/23/18 @ 10:08 by Lizzie Galindo) Grandfather CAD (coronary artery disease) Father CAD (coronary artery disease) Hypertension Heart disease Myocardial infarction, Onset Age: 37 Brother CAD (coronary artery disease) Hypertension Hyperlipemia Grandmother Hyperlipemia Heart disease Diabetes Sister Cancer Other Colon cancer Motivation - Motivation to Participate On a scale of 1 to 10, how prepared are you to commit to attending program?: 10 What do you see as barriers to successfully being able to complete the program?: none What do you see as the benefits of succesfully completing the program? In other words, what do you hope to get out of participating in the program?: weight loss, healthier heart adn lifestyle. Are there issues you are dealing with that will interfere with completing the program?: none Do you have a spouse or signficant other, family or friends who will help support you to complete the program?: yes.
--- NOTE | 2018-03-28 13:04 | CR.ITP_ITS ---
General Information - General Information Admitting Diagnosis: STEMI f/b PCI w coronary stent placement - Education/Goals Barriers to Learning: None Individual Counseling: Initial Assessment: Nicotine/Smoking, High Blood Pressure , Overweight/Obesity, Diabetes, Metabolic Syndrome (as evidenced by 3 of 5 A-E below), B. Waist Circumference >35/Females >40/Males, Hypertension, Sedentary Lifestyle, Family History of Heart Disease (under 65 years) Cardiac Rehabilitation Goals: 1. Maintain the individual as the primary focus of care. 2. To improve the patient's quality of life. 3. Identification of cardiac risk factors and provide cardiac risk factor management. 4. Enhance the psychosocial status of the patient. 5. Reconditioning enough to allow the patient to resume customary activities. 6. Control symptoms of cardiac disease Scale for measuring improvement of personal goals: Enter appropriate number in Comments. 2 = Unchanged. 3 = Slightly Better. 4 = Moderate Improvement. 5 = Met my Goal Personal Goals: Initial Assessment: Quit smoking (participate in smoking cessation, Improve energy level, Participate in home exercise program, Improve muscle strength and endurance, Control risk factors (learn risk factor modification) Exercise - Initial Assessment - Visit Date of Eval: 03/28/18 - established ITP today, start on - Stages of Change Stages of Change:: Action - Exercise Prescription Mode:: Treadmill, Rower, Airdyne, NuStep Angina with exercise?: No Target Heart Rate:: 128-138 - Hypertension Do any of the following apply?: Yes, Medication Resting Blood Pressure:: 142/88 - Intervention Home Exercise/Activity Goal:: Moderate Exercise 30 min/day x 5 days/wk - Education Goals:: Warm-up, RPE MATILDA Scale, S/S, Safe Exercise, Self-Monitoring - Exercise Program Goals Exercise Program Goals: Aerobic Activity >30 min Nutrition - Initial Assessment - Program Goals Nutrition Program Goals: LDL <70. Total Cholesterol <200. HDL >45. Triglycerides <150. HgbA1C <7%. BMI <25 - Visit Date of Assessment:: 03/28/18 - Stages of Change Stages of Change:: Action - Diabetes Diabetes:: Yes - Weight Management Height: 6 ft 4 in Weight:: 278 lb Body Fat %:: 33.8 - Intervention Referral to dietitian:: Yes Referral to Diabetic Clinic:: Yes Will attend diet classes:: Yes - Education Gave educational materials for:: Signs & symptoms of hypoglycemia, Signs & symptoms of hyperglycemia, Relate diabetes to coronary artery disease, Healthy eating Tobacco - Initial Assessment - Program Goals Tobacco Program Goals: Complete smoking cessation. Attend education classes. Improve Knowledge Test score - Stage of Change Stages of Change:: Action - Learning Barriers Learning Barriers: Ready to Learn - Family Support Do you have family support?: Yes - Tobacco Use Tobacco Use: Cigarettes How many cigarettes do you smoke per day?: 20 Years Smokin Do you use smokeless tobacco?: No - Intervention Smoking Cessation Referral:: Yes - Melissa Sandoval RRT to see patient please. Individual Education/Counseling:: Yes - 1:1 counseling with Smoking Cessation to complete smoking cessation Education Schedule Given:: Yes - Education Gave educational material for:: Tobacco triggers, Coronary artery disease, Risk factors, Sexuality, Medical compliance, Cardiac A&P, Angina signs & symptoms Psychosocial - Initial Assess - Target Goals Target Goals: Assess presence or absence of depression. Using a valid screening tool, maximizes coping skills. Positive support system - Stages of Change Stages of Change:: Action - Psychosocial Test Tool Used:: HANDS Depression Questionnaire - Intervention PS - Interventions: Yes Attend Stress Management Classes, No Referral to Mental Health, No Referral to [facility] Case Management, No Referral to Physician, No Uses Stress Management Skills - Education Gave educational materials for:: Coping techniques, Signs & symptoms of depression, Stress management, Relaxation techniques - Patient/Program Goal Preventative Medication(s):: Aspirin, Clopidogrel, Statin/lipid - Assistive Devices Assistive Devices:: Cane Fall Risk Assessed:: Yes Patient Health Questionnaire Initial Assessment 2. Feeling down, depressed, or hopeless: Not at all 3. Trouble falling or staying asleep, or sleeping too much: Not at all 4. Feeling tired or having little energy: Several days 5. Poor appetite or overeating: Several days 6. Feeling bad about yourself -- or that you are a failure or have let yourself or your family down: Several days 7. Trouble concentrating on things, such as reading the newspaper or watching television: Not at all 8. Moving or speaking so slowly that other people could have noticed. Or the opposite - being so fidgety or restless that you have been moving around a lot more than usual: Not at all 9. Thoughts that you would be better off , or of hurting yourself in some way: Not at all How difficult have these problems made it for you to do your work, take care of things at home, or get along with other people?: Somewhat difficult Total Score: 3 RUMA-Q SV Test - Statements CAD is a disease of the arteries in the heart: False Examples of risk factors for heart disease: True Angina is chest pain or discomfort: True The benefits of resistance training include: True Eating more meat and dairy products: False Anti-platelet medications such as aspirin are important: True The only effective way to manage stress: False An exercise warm-up slowly increases heart rate: True Prepared, processed foods usually have high sodium: True Depression is common after a heart attack: I Don't Know The statin medications lower cholesterol: True To control blood pressure, lower the amount of sodium: True If someone gets chest discomfort during walking: False Transfats are partially hydrogenated vegetable oils: I Don't Know Sleep apnea that is not treated increases the risk: False To control cholesterol, one should become a vegetarian: False Someone knows if he/she is exercising at the right level: I Don't Know Diabetes cannot be prevented with exercise & health eating: False Stress is a large risk for heart attack: True A diet that can help lower blood pressure is rich in: True - Total Score Total Correct Responses: 17 Self-Efficacy Initial Assessment We would like to know how confident you are in doing certain activities. Please select your confidence level for:: Select your confidence level for the following using the scale 1-10 where 1 is not at all confident and 10 is totally confident. Your score is the average of all 6 responses. Fatigue: How confident are you that you can keep the fatigue caused by your disease from interfering with the things you want to do? Select Number: 8 Physical Discomfort or Pain: How confident are you that you can keep the physical discomfort or pain of your disease from interfering with the things you want to do? Select Number: 7 Emotional Distress: How confident are you that you can keep the emotional distress caused by your disease from interfering with the things you want to do? Select Number: 7 Other Symptoms or Health Problems: How confident are you that you can keep other symptoms or health problems from interfering with the things you want to do? Select Number: 8 Different Tasks and Activities: How confident are you that you can do the different tasks and activities needed to manage your health condition so as to reduce your need to see a doctor? Select Number: 8 Medication: How confident are you that you can do things other than just taking medication to reduce how much your illness affects your everyday life? Select Number: 8 Total Score:: 7 Nutrition Survey - Nutrition Survey Instructions Scoring Instructions: Scoring is as follows: Yes = 1 points. No = 0 point. Patient score that is >/=12 is considered to be at potential nutritional risk and could benefit from a referral to a registered dietitian. - Nutrition Survey Initial Have you lost >10 lbs over the past 2 months without trying?: No Are you following a special diet at home for diabetes, low fat, or low salt?: Yes Are you interested in meeting with a dietitian for help understanding your diet? : No Do you eat less than 3 meals a day?: Yes Do you eat fatty meats (monge, sausage, ribs, etc), fried foods, desserts, large amounts of salad dressings, margarine, butter, or cheese most days?: Yes Do you have food allergies? [Enter types in comment field]: Yes - Olives Do you eat in restaurants more than 3 times a week?: No Do you season food with salt, seasoning salt, or garlic salt?: Yes Do you used canned, boxed, frozen meals, or soups, seasoning packets?: Yes Total Score:: 6
--- NOTE | 2018-03-28 13:04 | CR.HP_ITS ---
CR - History & Physical - General Arrival date:: 03/28/18 Arrival time:: 12:56 Date of Referral:: 03/11/18 Date of CR Evaluation:: 03/28/18 Referring Physician: Dr. Ronnie Franco Primary Diagnosis: STEMI f/b PCI w/coronary stent placement - History of Present Cardiac Event Onset Date: Enter Onset Date of cardiac illnesses in Comment field below Acute Myocardial Infarction within 12 months:: Yes - STEMI 03/07/2018 PTCA or coronary stenting:: Yes - PCI w/ coronary stent03/07/2018 Type of Symptoms:: feels tightness in the chest, hard to breath and indigestion. Interventions with present event:: July 26, 2017 previous stent, October 2010. Were there any complications?: none; more getting used to the Brilinta medication - Medications Home Medications: Ambulatory Orders Medication Instructions Recorded Citalopram [Celexa] 10 mg PO DAILY 08/02/15 Cyclobenzaprine [Flexeril] 10 mg PO TID 08/02/15 Oxybutynin [Ditropan] 5 mg PO DAILY 08/02/15 Ranitidine [Zantac] 300 mg PO BID 08/02/15 Cholecalciferol (VIT D3) [Vitamin 1,000 unit PO BID 08/17/15 D3] B12/Levomefolate Calcium/B-6 1 ea PO DAILY 11/17/15 [Foltx Tablet] Esomeprazole Mag Trihydrate 40 mg PO BID 03/05/16 [Nexium] Hydroxyzine HCl 25 mg PO 4X/DAY 12/02/17 gabapentin 600 mg tablet 600 mg PO TID tab 01/23/18 glipizide ER 2.5 mg tablet, 2.5 mg PO QDAY 01/23/18 extended release 24 hr Atorvastatin Calcium [Lipitor] 80 mg PO QHS #30 tab 03/09/18 Cilostazol 100 mg PO BID #60 tab 03/09/18 Isosorbide Mononitrate [Imdur] 30 mg PO DAILY #30 tab 03/09/18 Metoprolol Succinate [Toprol Xl] 25 mg PO DAILY #30 tab 03/09/18 Nitroglycerin [Nitrostat] 0.4 mg SUBLINGUAL Q5M PRN #10 tab 03/09/18 Ticagrelor [Brilinta] 90 mg PO BID #60 tab 03/09/18 - Allergies Allergies/Adverse Reactions: Allergies acetaminophen [From Tylenol] Allergy (Verified 03/07/18 21:50) Angioedema aspirin Allergy (Verified 03/07/18 21:50) Anaphylaxis ibuprofen [From Motrin] Allergy (Verified 03/07/18 21:50) Anaphylaxis metformin Allergy (Verified 03/07/18 21:50) Swelling pollen extracts Allergy (Verified 03/07/18 21:50) Hives caffeine [From Excedrin Migraine] Adverse Reaction (Severe, Verified 03/07/18 21 :50) Face swelling morphine Adverse Reaction (Verified 03/07/18 21:50) Other REDDNESS AND ITCHING TO IV SITE - Sleep Disorder Evaluation Hx of Sleep Apnea: Yes Do you snore loudly (louder than talking or can be heard through closed doors)? : Yes History of Hypertension (for STOP score): Yes Advanced Directives - Advanced Directives Power of Haul Driver: No Living Will: No Advance Directives Information Provided: Yes Advance Directives on File: No DNR Order?:: No - MOLST See MOLST form: No Past Medical History - Past Medical Illness Medical History: Past Medical History (Last Updated 01/21/18 @ 12:36 by Jaye Loco) Nicotine abuse (Chronic) Z72.0 Left atrial enlargement (Chronic) I51.7 Other mcc (current) drug therapy (Chronic) Z79.899 Aortic root dilatation (Chronic) I77.810 Atherosclerotic heart disease of jam[place] coronary artery with angina pectoris with documented spasm (Chronic) I25.[address] segment elevation DC (Chronic) I21.3 Cellulitis of right hand (Acute) L03.113 Smoker (Chronic) F17.200 Cat bite of right hand (Acute) S61.451A, W55.01XA Cat bite (Acute) W55.01XA cat bite ulnar aspect right palm Essential (primary) hypertension (Chronic) I10 CAD (coronary artery disease) (Chronic) I25.10 hx AMI 1 stent Seasonal allergies (Chronic) J30.2 Overactive bladder (Chronic) N32.81 spinal stenosis (Chronic) Hyperlipidemia (Chronic) E78.5 Diabetes (Chronic) E11.9 with diabetic neuropathy ARF (acute renal failure) (Acute) Hypotension (Acute) I95.9 STEMI (ST elevation myocardial infarction) (Resolved) 08/30 Anxiety F41.9 Chest pain R07.9 Intermittent claudication I73.9 Atherosclerosis of jamul coronary artery of jamul heart without angina pectoris I25.10 SEMAJ (obstructive sleep apnea) G47.33 - Past Surgical History Surgical History: Past Surgical History (Last Updated 01/23/18 @ 10:08 by Lizzie Galindo) History of lumbar surgery (Resolved) Z98.890 3 History of hernia repair (Resolved) Z98.890, Z87.19 3 Hx of cholecystectomy (Resolved) Z90.49 3 years ago Coronary angioplasty status (Chronic) Z98.61 Presence of coronary angioplasty implant and graft (Chronic) Z95.5 PTCA with BMS to RCA 11/24; [facility] w/PCI of RCA History of percutaneous coronary intervention Z98.890 PTCA/BMS to RCA 11/2010, PTCA/BMS to RCA 07/2017 H/O arthroscopy of right knee Onset Date: ~2000 Z98.890 History of left heart catheterization Z98.890 11/2010, 03/2015, Surgical History: angioplasty, cholecystectomy, - - 3 hernia,both knees,spinal injections, 1 stent in his heart - Family History Summary Family History: Family History (Last Reviewed 01/23/18 @ 10:08 by Lizzie Galindo) Grandfather CAD (coronary artery disease) less than 55 Father CAD (coronary artery disease) Hypertension Heart disease Myocardial infarction, Onset Age: 37 x5 Brother CAD (coronary artery disease) less than 55 Hypertension Hyperlipemia Grandmother Hyperlipemia Heart disease Diabetes Sister Cancer cervical cancer Other Colon cancer Social History - Smoking History Smoking Status: Current every day smoker Years Smokin Packs Smoked per Day: 1 Hx Smoking Cessation Date: Today; January Smoking Cessation to see patient Hx Tobacco Use: Yes Hx Smoking Exposure: Yes - Alcohol Use Alcohol Usage: Yes - socially, holiday and special occasions - Substance Abuse Hx Substance Use: No - Occupation Occupation (List type of work in comments):: 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 - Safety Do you feel safe in your surroundings?: Yes - Assistance Do you need any assistance at home?: none Review of Systems - Review of Systems Hints: Right click = Denies ([place]). Left click = Reports ([place]) Review of Present Symptoms: Reports: Shortness of Breath at Rest, Shortness of Breath with Exertion, Appetite - Special Diet - low calorie diet, cut out fatty foods, more fresh fruits and vegetables. Did do the nutrition program with Meera haseeb in [facility]., Sleep - Normal - CPAP ends up takiing it off in through the night when sound of sleep. Say 98% of the time does nto wear it.. Denies: Dizziness/Lightheadedness, Fatigue, Heart Arrhythmia/ Irregularities, Appetite - Normal - gotten better; sometimes have to force myself to eat due to diabetic., Sexual Changes - Pain Is Patient Pain Free?: No Pain Location: none Pain Level: 0/10 Risk Factor Assessment - Chief Complaint Chief Complaint: Patient is a 47 year old male of Dr. Ronnie Franco who presents to cardiac rehab today following his recent STEMI and PCI w/coronary stent procedure back in February 2018. - Vital Signs Temperature: 98.7 F Respiratory Rate: 14 Pulse Ox: 97 Blood Pressure: 142/88 Nailbeds:: pink, normal capillary - Pulse Pulse Rate: 77 Pulse Rhythm: Regular - Hypertension Blood Pressure Sitting - Left Arm: 142/88 - Diabetes Diabetic History: Type II, Medication Dependent - typically FSBS run under 200. Nutrition Referral for Diabetes: Yes - Obesity Height: 6 ft 4 in Weight:: 278 lb Weight in Pounds: 278.0 lbs Weight Source: Standing Scale Body Mass Index (BMI): 33.8 Nutritional Referral for Obesity: Yes - Physical Inactivity Physical Inactivity: Recreational activity - walking 1-2 days per week <15 minutes - Risk Stratification Risk Guidelines: Lowest Risk: Risk Factor for Dyslipidemia, Risk Factor for Diabetes, Risk Factor for Depression, Moderate Risk: Risk Factor for Hypertension, Risk Factor for Sedentary Lifestyle, Highest Risk: Risk Factor for Smoking, Risk Factor for Obesity - For Smoking Smoking Risk Guidelines: Smoking Low Risk: None or quit greater than 6 months ago. Smoking Moderate Risk: Smoker or quit 6 months or less ago. Smoking High Risk: Smoker - For Dyslipidemia Dyslipidemia Risk Guidelines: Low Risk: Moderate Risk: High Risk: 15-25% fat 25.1-29% fat >/= 30% fat. <7% sat fat 7-9% sat fat >9% sat fat. <150 mg chol 150-299 mg chol >/= 300 mg chol. LDL <100 LDL 100-129 LDL >/= 130. Chol/HDL ratio <5.0 Chol/HDL ratio 5.0-6.0 Chol/HDL ratio >6.0. Triglycerides <100 Triglycerides 100-149 Triglycerides >/= 150 - For Diabetes Mellitus Diabetes Risk Guidelines: Diabetes Low Risk: HgA1c <6.5% and/or FBG <120. Diabetes Moderate Risk: HgA1c 6.6-7.9% and/or FBG 120-180. Diabetes High Risk: HgA1c >/= 8% and/or FBG >180 - For Obesity/Overweight Obesity/Overweight Risk Guidelines: Obesity Low Risk: BMI <25.0. Obesity Moderate Risk: BMI 25-29.9. Obesity High Risk: BMI >/= 30.0 - For Hypertension Hypertension Risk Guidelines: Hypertension Low Risk: Systolic <120 and Diastolic <80. Hypertension Moderate Risk: Systolic 120-139 and Diastolic 80-89. Hypertension High Risk: Systolic >/= 140 and Diastolic >/= 90 - For Sedentary Lifestyle Sedentary Lifestyle Risk Guidelines: Sedentary Lifestyle Low Risk: >/= 1 ,500 kcal/week. Sedentary Lifestyle Moderate Risk: 700-1,499 kcal/week. Sedentary Lifestyle High Risk: < 700 kcal/week - For Depression Depression Risk Guidelines: Depression Low Risk: Not clinically depressed. Depression Moderate Risk: Mildly depressed. Depression High Risk: Clinically depressed - Family History Family History: Family History (Last Reviewed 01/23/18 @ 10:08 by Lizzie Galindo) Grandfather CAD (coronary artery disease) Father CAD (coronary artery disease) Hypertension Heart disease Myocardial infarction, Onset Age: 37 Brother CAD (coronary artery disease) Hypertension Hyperlipemia Grandmother Hyperlipemia Heart disease Diabetes Sister Cancer Other Colon cancer Motivation - Motivation to Participate On a scale of 1 to 10, how prepared are you to commit to attending program?: 10 What do you see as barriers to successfully being able to complete the program? : none What do you see as the benefits of succesfully completing the program? In other words, what do you hope to get out of participating in the program?: weight loss , healthier heart adn lifestyle. Are there issues you are dealing with that will interfere with completing the program?: none Do you have a spouse or signficant other, family or friends who will help support you to complete the program?: yes.
[2018-03-28 13:21] VITALS: BP 142/88; PULSE 77; RESP 14; TEMP 37.1; O2SAT 97; BMI 33.8
[2018-03-28 14:02] VITALS: BP 142/88
== END ==
PROVIDERS: Family Provider Family Medicine; PCP Family Medicine; Visit Provider Internal Medicine Cardiovascular Disease
DX: Z95.5 Presence of coronary angioplasty implant and graft (principal)

== ENCOUNTER 2018-04-11 14:15 | Outpatient (RCR) | payer MEDICAID, SELFPAY ==
[2018-04-04 09:51] VITALS: BP 130/84; BP 138/70
--- NOTE | 2018-04-04 09:52 | CR.ITP_ITS ---
General Information - General Information Admitting Diagnosis: PCI with coronary stent placement - Education/Goals Barriers to Learning: None Individual Counselin-Day Assessment: Nicotine/Smoking, High Blood Pressure , Overweight/Obesity, Diabetes, Metabolic Syndrome (as evidenced by 3 of 5 A-E below), Hypertension, Sedentary Lifestyle Cardiac Rehabilitation Goals: 1. Maintain the individual as the primary focus of care. 2. To improve the patient's quality of life. 3. Identification of cardiac risk factors and provide cardiac risk factor management. 4. Enhance the psychosocial status of the patient. 5. Reconditioning enough to allow the patient to resume customary activities. 6. Control symptoms of cardiac disease Scale for measuring improvement of personal goals: Enter appropriate number in Comments. 2 = Unchanged. 3 = Slightly Better. 4 = Moderate Improvement. 5 = Met my Goal Personal Goals: 30-day Re-assessment: Quit smoking (participate in smoking cessation, Improve energy level, Participate in home exercise program, Improve muscle strength and endurance, Control risk factors (learn risk factor modification) Exercise - 30-day Assessment - Visit Date of Eval: 04/04/18 Session #:: 1 - Stages of Change Stages of Change:: Action - Exercise Prescription Mode:: Treadmill, Airdyne, NuStep Frequency (x/week): 3 Duration:: 30 METs - Progression: 0.5-1 MET as tolerated: 3.5 Target Heart Rate:: 128-138 max hr 123 - Hypertension Resting Blood Pressure:: 130/84 Peak Exercise Blood Pressure:: 138/70 Medication Changes:: No - Intervention Home Exercise/Activity Goal:: Sitting Time <3 hrs/day - Education Goals:: Warm-up, RPE MATILDA Scale, S/S, Safe Exercise, Self-Monitoring - Exercise Program Goals Exercise Program Goals: Aerobic Activity >30 min, B/P <130/80 Nutrition - 30-Day Assessment - Program Goals Nutrition Program Goals: LDL <70. Total Cholesterol <200. HDL >45. Triglycerides <150. HgbA1C <7%. BMI <25 - Visit Date of Eval: 04/04/18 - Stages of Change Stages of Change:: Action - Lipids Has the patient seen the dietitian?: No - Diabetes Diabetes:: No - Weight Management Weight:: 126.099 kg - Intervention Referral to dietitian:: No Referral to Diabetic Clinic:: No Will attend diet classes:: Yes - Education Attended class for:: Signs & symptoms of hypoglycemia, Signs & symptoms of hyperglycemia, Relate diabetes to coronary artery disease, Healthy eating Tobacco - Initial Assessment - Program Goals Tobacco Program Goals: Complete smoking cessation. Attend education classes. Improve Knowledge Test score - Learning Barriers Learning Barriers: Ready to Learn Tobacco - 30-Day Assessment - Program Goals Tobacco Program Goals: Complete smoking cessation. Attend education classes. Improve Knowledge Test score - Stage of Change Stages of Change:: Action - Learning Barriers Learning Barriers: Participates in education - Family Support Do you have family support?: Yes - Tobacco Use Tobacco Use: Cigarettes Do you use smokeless tobacco?: No - Intervention Smoking Cessation Referral:: Yes Individual Education/Counseling:: Yes Education Schedule Given:: Yes - Education Attended class for:: Tobacco triggers, Coronary artery disease, Risk factors, Sexuality, Medical compliance, Cardiac A&P, Angina signs & symptoms Psychosocial - Initial Assess - Target Goals Target Goals: Assess presence or absence of depression. Using a valid screening tool, maximizes coping skills. Positive support system - Psychosocial Test Tool Used:: HANDS Depression Questionnaire - Assistive Devices Fall Risk Assessed:: Yes Psychosocial - 30-Day Assess - Target Goals Target Goals: Assess presence or absence of depression. Using a valid screening tool, maximizes coping skills. Positive support system - Stages of Change Stages of Change:: Action - Psychosocial Test Tool Used:: HANDS Depression Questionnaire - Intervention PS - Interventions: Yes Attend Stress Management Classes, Yes Uses Stress Management Skills, No Referral to Mental Health, No Referral to [facility] Case Management, No Referral to Physician - Education Attended classes for:: Coping techniques, Signs & symptoms of depression, Stress management, Relaxation techniques - Assistive Devices Assistive Devices:: None Fall Risk Assessed:: Yes Patient Health Questionnaire 30-Day Re-eval Assessment 1. Little interest or pleasure in doing things: Not at all 2. Feeling down, depressed, or hopeless: Not at all 3. Trouble falling or staying asleep, or sleeping too much: Not at all 4. Feeling tired or having little energy: Several days 5. Poor appetite or overeating: Not at all 6. Feeling bad about yourself -- or that you are a failure or have let yourself or your family down: Not at all 7. Trouble concentrating on things, such as reading the newspaper or watching television: Not at all 8. Moving or speaking so slowly that other people could have noticed. Or the opposite - being so fidgety or restless that you have been moving around a lot more than usual: Not at all 9. Thoughts that you would be better off , or of hurting yourself in some way: Not at all Total Score: 1 Self-Efficacy 30-Day Re-eval Assessment We would like to know how confident you are in doing certain activities. Please select your confidence level for:: Select your confidence level for the following using the scale 1-10 where 1 is not at all confident and 10 is totally confident. Your score is the average of all 6 responses. Fatigue: How confident are you that you can keep the fatigue caused by your disease from interfering with the things you want to do? Select Number: 8 Physical Discomfort or Pain: How confident are you that you can keep the physical discomfort or pain of your disease from interfering with the things you want to do? Select Number: 8 Emotional Distress: How confident are you that you can keep the emotional distress caused by your disease from interfering with the things you want to do? Select Number: 8 Other Symptoms or Health Problems: How confident are you that you can keep other symptoms or health problems from interfering with the things you want to do? Select Number: 8 Different Tasks and Activities: How confident are you that you can do the different tasks and activities needed to manage your health condition so as to reduce your need to see a doctor? Select Number: 8 Medication: How confident are you that you can do things other than just taking medication to reduce how much your illness affects your everyday life? Select Number: 8 Total Score:: 8
== END 2018-04-12 23:59 ==
LOC: CR 14:15
PROVIDERS: Family Provider Family Medicine; PCP Family Medicine; Visit Provider Internal Medicine Cardiovascular Disease
DX: I25.10 Atherosclerotic heart disease of native coronary artery without angina pectoris (principal); I10 Essential (primary) hypertension; Z95.5 Presence of coronary angioplasty implant and graft; Z72.0 Tobacco use
CPT/HCPCS: 93798

== ENCOUNTER 2018-04-14 10:24 | Outpatient (RCR) | payer MEDICAID, SELFPAY ==
[2018-04-13 01:12] VITALS: BP 130/84; BP 138/70
== END 2018-05-13 23:59 ==
LOC: CR 10:24
PROVIDERS: Family Provider Family Medicine; PCP Family Medicine; Visit Provider Internal Medicine Cardiovascular Disease
DX: I25.10 Atherosclerotic heart disease of native coronary artery without angina pectoris (principal); I10 Essential (primary) hypertension; Z95.5 Presence of coronary angioplasty implant and graft; Z72.0 Tobacco use
CPT/HCPCS: 93798

== ENCOUNTER 2018-12-22 19:28 | Emergency (ER) | payer MEDICARE, SELFPAY ==
[2018-12-22 19:29] VITALS: PULSE 80; RESP 16; TEMP 36.4; BMI 29.8
[2018-12-22 19:37] VITALS: BP 99/67; PULSE 83; RESP 18; O2SAT 98
--- NOTE | 2018-12-22 20:37 | CT_ITS ---
HISTORY: dizzyness, hypotension TECHNIQUE: Routine [facility] [place]/brain CT angiogram protocol was performed before and following IV contrast. 3D reconstructions were reviewed. A radiation dose optimization technique was used for this scan. IV Contrast dosage and agent: 100 cc Isovue 370 contrast COMPARISON: None FINDINGS: The vertebral arteries are codominant and the posterior cerebral arteries fill via the basilar artery. No circulation. Minor calcified plaque within the cavernous carotid arteries bilaterally. Normal contrast filling of the anterior, middle, and posterior cerebral arteries bilaterally. No aneurysm, vascular malformation, or significant arterial stenosis. Initial noncontrast exam shows normal ventricles and normal peña-white matter differentiation. No intracranial mass, hemorrhage, or acute parenchymal abnormality. Posterior fossa structures are unremarkable. No suspicious extra-axial fluid collection. As visualized, the mastoids and parent sinuses are clear. CT/CTA Head W/WO Contrast IMPRESSION: 1. No arterial occlusion, aneurysm or vascular malformation. 2. No acute intracranial disease. Individualized dose optimization techniques were used for this CT. at 2257 Reported and signed by: Alejo Heredia MD Electronically Signed: Alejo Heredia, at 22:56 EDT Tel , Service support ,
--- NOTE | 2018-12-22 20:37 | EKG12_ITS ---
Test Reason : DIZZINESS Blood Pressure : / mmHG Vent. Rate : 081 BPM Atrial Rate : 081 BPM P-R Int : 146 ms QRS Dur : 080 ms QT Int : 374 ms P-R-T Axes : 062 031 036 degrees QTc Int : 434 ms Normal sinus rhythm Inferior infarct , age undetermined Abnormal ECG Confirmed by GLADIS JONES, CANDELARIA ([id number]), photography editor YVONNE RUFF ([id number]) on 12/25/2018 10:51:24 AM Referred By: MARIAM SALGADO Confirmed By:CANDELARIA GRIFFITH MD
--- NOTE | 2018-12-22 20:37 | CT_ITS ---
HISTORY: dizzy, hypotension TECHNIQUE: Routine carotid CT angiogram protocol was performed without and with IV contrast. Nascet criteria using the distal ICAs for comparison were used for evaluation of stenoses. 3D reconstructions were reviewed. A radiation dose optimization technique was used for this scan. IV Contrast dosage and agent: 100 cc Isovue-370 contrast COMPARISON: None FINDINGS: AORTIC ARCH AND BRANCHES: Normal anatomy, patent. RIGHT CCA: No occlusion, significant stenosis or dissection. Minor calcified plaque of the common carotid bifurcation. RIGHT ICA: No occlusion, significant stenosis or dissection. Minor calcified plaque of the proximal ICA. LEFT CCA: No occlusion, significant stenosis or dissection. LEFT ICA: No occlusion, significant stenosis or dissection. RIGHT VERTEBRAL ARTERY: No occlusion, significant stenosis or dissection. LEFT VERTEBRAL ARTERY: No occlusion, significant stenosis or dissection. CT/CTA Neck W/WO Contrast IMPRESSION: 1. Carotid minor calcified plaque. No carotid stenosis or significant plaque disease. 2. Bilateral patency of the vertebral arteries. Individualized dose optimization techniques were used for this CT. at 2302 Reported and signed by: Alejo Heredia MD Electronically Signed: Alejo Heredia, at 23:01 EDT Tel , Service support ,
--- NOTE | 2018-12-22 20:55 | RAD_ITS ---
HISTORY: dizziness and light headedness EXAM:XR Chest 1 View: Portable COMPARISON: 03/12/2018 FINDINGS: EKG leads in place. Normal heart size. Prominent lung volumes. No vascular congestion, pleural effusion, or acute pulmonary infiltration. No pneumothorax. The bony thorax appears intact. RAD/Chest 1 View (Portable) IMPRESSION: 1. No acute cardiopulmonary disease. No significant change. at 2240 Reported and signed by: Alejo Heredia MD Electronically Signed: Alejo Heredia, at 22:39 EDT Tel , Service support ,
[2018-12-22] MEDS: 0.9% Normal Saline 1,000 ML 999 ML IV ×2 (21:00→22:06)
[2018-12-22 21:12] LABS: Absolute Lymphocyte Count 2.67 X10^3/ul (0.83-4.51); Basophil# 0.03 X10^3/uL; Basophil% 0.5 % (0-1); Eosinophils% 3.1 % (0-5); Hematocrit 45.4 % (40-54); Hemoglobin 15.3 g/dl (13.0-16.5); Lymphocyte # 2.67 X10^3/ul (4.0); Lymphocyte % 40.8 % (19-41); Mean Corp Hgb Conc 33.7 g/gl (32-36); Mean Corpuscular Hgb 31.6 pg (27.0-32.0); Mean Corpuscular Volume 93.8 fL (80-94); Mean Platelet Vol. 10.2 fl (6.2-12.0); Monocyte# 0.63 X10^3/uL; Monocyte% 9.6 % (0-10); Neutrophil % 45.8 % (47-70); Platelet Count 219 K/mm3 (150-450); RBC Distribution Width CV 12.8 % (11.6-14.6); RBC Distribution Width SD 44.2 fl (35.1-43.9); Red Blood Count 4.84 M/mm3 (4.6-6.2); White Blood Count 6.5 K/mm3 (4.4-11.0)
[2018-12-22 21:13] LABS: POSITIVE COUNT NO; POSITIVE DIFFERENTIAL NO; POSITIVE MORPHOLOGY NO
[2018-12-22 21:29] LABS: Anion Gap 7 (5-15); BUN 13 mg/dL (7-18); BUN/Creat Ratio 11.7 RATIO (10-20); Calcium,Total 8.7 mg/dL (8.5-10.1); Chloride 97 mmol/L (98-107); Creatinine, Serum 1.11 mg/dL (0.70-1.30); EST Glomerular Filtration Rate 75 mL/min (>60); Est Glom Filt Rate - Afr Amer 91 mL/min (>60); Estimated Creatinine Clearance 99.92 ml/min; Glucose 384 mg/dL (74-106); Potassium 5.2 mmol/L (3.5-5.1); Sodium Level 132 mmol/L (136-145)
--- NOTE | 2018-12-22 21:36 | ED.DCSUM_ITS ---
- ER Visit Summary Date of Service: 12/22/18 Chief Complaint: Dizziness, near syncope History of Present Illness: The patient is a 48 M with dizziness, near syncope. Symptoms have been ongoing for 3 days. He has had a headache over the past 3 days as well. He denies fever. Denies chest pain. Complains of mild shortness of breath. He denies cough. Denies abdominal pain, nausea, vomiting, diarrhea. He has had intermittent black stool for the past several weeks. Denies other complaints. Physical Examination: Vitals are stable. Patient is afebrile. Alert no acute distress. HEENT exam is unremarkable. Neck is supple. Lungs are clear and equal bilaterally. Heart is regular rate and rhythm. Abdomen is soft nontender nondistended. Extremities are unremarkable. Skin is warm and dry. No focal neurologic deficit. Remainder of exam is unremarkable. Emergency Department Course and Treatment: EKG is sinus rate of 81 with no acute ischemic changes. CBC normal. Chemistries show sodium 132, potassium 5.2, glucose 384. Troponin negative. Chest x-ray shows no acute process. Stool is guaiac negative. CTA head and neck are unremarkable. Patient was given IV fluids. On reevaluation, he is feeling much improved and is requesting to go home. Orthostatics documented by nursing showed a blood pressure systolic in the 80s with standing. This was repeated and his systolic blood pressure is 105/70 with standing. He has a scheduled appointment with his primary care physician tomorrow. He will keep this appointment. He feels well and declines admission. He is advised to return to the ED for any worsening complaints. Disposition: Discharge home Impression: Dizziness, headache This note was generated with [employer] dictation software. It may contain incorrect words, spelling, and punctuation that were not noted in review of the chart prior to signing ED Disposition - Plan for ED Patient: Instructions: ED Dizziness [facility] Referrals: Olivier Oates MD [Primary Care Provider] -
[2018-12-22 22:05] VITALS: BP 83/60; PULSE 77; RESP 16; O2SAT 97
[2018-12-22 23:07] VITALS: BP 101/60; PULSE 68; RESP 17; O2SAT 99
--- NOTE | 2018-12-22 23:23 | ED.DEP ---
ED Disposition - Plan for ED Patient: Instructions: ED Dizziness [facility] Referrals: Olivier Oates MD [Primary Care Provider] -
[2018-12-22 23:25] VITALS: BP 102/71; BP 85/61; BP 97/67; PULSE 72; PULSE 73; PULSE 85
[2018-12-22 23:27] VITALS: BP 102/71; PULSE 73; RESP 16; O2SAT 98
== END 2018-12-22 23:55 | disposition home or self-care (01) ==
PROVIDERS: Emergency Provider Emergency Medicine; Family Provider Family Medicine; PCP Family Medicine
DX: R42 Dizziness and giddiness (principal); R51 Headache; R06.00 Dyspnea, unspecified; E11.9 Type 2 diabetes mellitus without complications; I10 Essential (primary) hypertension; I25.10 Atherosclerotic heart disease of native coronary artery without angina pectoris; Z72.0 Tobacco use; Z90.49 Acquired absence of other specified parts of digestive tract
CPT/HCPCS: 70496; 70498; 71045; 80048; 82274; 84484; 85025; 93005; 96360; 96361; 99285; J7030; Q9967

== ENCOUNTER 2019-01-07 08:59 | Observation (INO) | payer MEDICARE, SELFPAY ==
[2019-01-07] VITALS (12 sets, daily range): BP systolic 101–124; BP diastolic 59–83; PULSE 70–89; RESP 15–20; TEMP 36.7–36.9; O2SAT 95–99; BMI 28.4; BMI 28.9
--- NOTE | 2019-01-07 09:18 | ED.VISSUMM ---
- ER Visit Summary Date of Service: 01/07/19 Chief Complaint: Chest pain History of Present Illness: The patient is a 48 M with history of cardiac disease and 2 prior MIs. He has 3 cardiac stents. Patient states he woke approximately an hour prior to arrival with sharp and heavy chest pain that feels like his prior MIs. He states pain resolved after 2 nitroglycerin. He does report having a sour stomach last night. He denies shortness of breath or diaphoresis. His last cardiac stent was placed in February 2018. He is currently on Brilinta. He has an aspirin allergy. Physical Examination: Vital signs are unremarkable. Patient sitting upright in bed no acute distress. Head and neck examination unremarkable. Heart is regular rate and rhythm. Lungs sounds are clear. There is no reducible chest wall tenderness. Abdomen is soft and nontender. Extremity examination reveals no calf tenderness or edema. Test Results: EKG is sinus 80 with no acute ischemia. Portable chest x-ray is unremarkable. CBC and chemistry studies significant only for glucose of 327. Troponin is less than 0.015. Emergency Department Course and Treatment: Patient was given IV fluids here. He had 2 tabs of nitroglycerin prior to arrival. He did not receive because he is allergic to it. He is currently on Brilinta. On repeat evaluation patient is resting comfortably and has had no recurrence of pain. Patient will be admitted for cycling of enzymes and further evaluation. Treatment Plan: [] Disposition: Admit Impression: Chest pain This note was generated with [employer] dictation software. It may contain incorrect words, spelling, and punctuation that were not noted in review of the chart prior to signing ED Disposition - Plan for ED Patient: Referrals: Olivier Oates MD [Primary Care Provider] -
--- NOTE | 2019-01-07 09:20 | EKG12_ITS ---
Test Reason : CP Blood Pressure : / mmHG Vent. Rate : 080 BPM Atrial Rate : 080 BPM P-R Int : 156 ms QRS Dur : 086 ms QT Int : 380 ms P-R-T Axes : 059 011 002 degrees QTc Int : 438 ms Normal sinus rhythm Possible Lateral infarct , age undetermined Inferior-posterior infarct (cited on or before 07-MAR-2018), age undetermined Abnormal ECG Confirmed by GLADIS JONES, CANDELARIA ([id number]), newspaper copy editor YVONNE RUFF ([id number]) on 01/08/2019 1:08:54 PM Referred By: CAS Confirmed By:CANDELARIA GRIFFITH MD
--- NOTE | 2019-01-07 09:22 | RAD_ITS ---
STUDY: X-RAY CHEST REASON FOR EXAM: Male, 48 years old. Sharp midsternal chest pain. TECHNIQUE: Single AP portable view of the chest. COMPARISON: Comparison is made with prior study dated December 22, 2018. FINDINGS: EKG electrodes are seen. The lungs are clear and expanded. There is no demonstrated pleural abnormality. Normal size heart. Normal mediastinum and irena. Normal visualized pulmonary arteries. Normal visualized aortic arch and descending thoracic aorta. There are diffuse degenerative changes of the visualized thoracic spine. Normal visualized ribs, clavicles, and shoulders. There is no demonstrated abnormality of the visualized soft tissue structures of the upper abdomen. RAD/Chest 1 View (Portable) IMPRESSION: No acute abnormality is seen. Electronically Signed: Aroldo Zelaya, at 9:51 EDT , Service support ,
[2019-01-07 09:33] LABS: Absolute Lymphocyte Count 1.85 X10^3/ul (0.83-4.51); Absolute Neutrophil Count 2.9 X10^3/uL (2.0-7.7); Basophil# 0.02 X10^3/uL; Basophil% 0.4 % (0-1); Eosinophil# 0.17 X10^3/uL; Eosinophils% 3.1 % (0-5); Hematocrit 43.2 % (40-54); Hemoglobin 14.6 g/dl (13.0-16.5); Lymphocyte # 1.85 X10^3/ul (4.0); Lymphocyte % 33.2 % (19-41); Mean Corp Hgb Conc 33.8 g/gl (32-36); Mean Corpuscular Hgb 31.8 pg (27.0-32.0); Mean Corpuscular Volume 94.1 fL (80-94); Mean Platelet Vol. 10.5 fl (6.2-12.0); Monocyte# 0.59 X10^3/uL; Monocyte% 10.6 % (0-10); Neutrophil # 2.93 X10^3/uL (2.7-7.7); Neutrophil % 52.5 % (47-70); POSITIVE COUNT NO; POSITIVE DIFFERENTIAL NO; POSITIVE MORPHOLOGY NO; Platelet Count 179 K/mm3 (150-450); RBC Distribution Width CV 12.6 % (11.6-14.6); RBC Distribution Width SD 42.3 fl (35.1-43.9); Red Blood Count 4.59 M/mm3 (4.6-6.2); White Blood Count 5.6 K/mm3 (4.4-11.0)
[2019-01-07 09:54] LABS: Anion Gap 11 (5-15); BUN 15 mg/dL (7-18); BUN/Creat Ratio 17.8 RATIO (10-20); Calcium,Total 8.8 mg/dL (8.5-10.1); Chloride 102 mmol/L (98-107); Creatinine, Serum 0.84 mg/dL (0.70-1.30); EST Glomerular Filtration Rate 103 mL/min (>60); Est Glom Filt Rate - Afr Amer 125 mL/min (>60); Estimated Creatinine Clearance 132.04 ml/min; Glucose 327 mg/dL (74-106); Potassium 4.1 mmol/L (3.5-5.1); Sodium Level 136 mmol/L (136-145)
[2019-01-07] MEDS: 0.9% Normal Saline 1,000 ML 150 ML IV (10:00)
--- NOTE | 2019-01-07 10:48 | PCM.HP.STD ---
Problem List (1) Chest pain Status: Acute Qualifiers: Chest pain type: unspecified Qualified Code(s): R07.9 - Chest pain, unspecified (2) Nicotine abuse Status: Chronic (3) Essential (primary) hypertension Status: Chronic (4) CAD (coronary artery disease) Status: Chronic Qualifiers: Coronary Disease-Associated Artery/Lesion type: unspecified vessel or lesion type [place] vs. 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 insulin use: without fdc use Diabetes mellitus complication status: with neurologic complications Diabetes mellitus complication detail: with unspecified neuropathy Qualified Code(s): E11.40 - Type 2 diabetes mellitus with diabetic neuropathy, unspecified Comment: with diabetic neuropathy History of Present Illness Date of Admission: 01/07/19 Chief Complaint: Chest pain The patient is a 48 y/o M w/ PMHx: HTN, HLD, Anxiety and Depression, Tobacco use, CAD s/p PCI, Chronic back pain w/ spinal stenosis, Obesity, most recent admission 03/07/18 with STEMI w/ cardiac catheterization w/ totally occluded proximal RCA with in-stent thrombosis with balloon angioplasty performed with aspiration thrombectomy with some distal embolization of the clot noted in the right posterior descending artery which was also treated with balloon angioplasty and clot embolization in the right posterior lateral ventricle branch treated with balloon angioplasty and also noted culprit lesion with an in-stent restenosis therefore a resolute integrity drug-eluting stent was deployed who now re-presents to the [facility] ED on 01/07/19 with history of mild dyspepsia the evening prior to current presentation with onset this morning, waking him up, midsternal, 8-9/10 in severity, nonradiating chest heaviness, pressure with additional occasional stabbing pain associated with complete resolution following self administration of sublingual nitroglycerin x2 with no associated dyspnea, diaphoresis, nausea or emesis. Patient was noted to be chest pain-free upon arrival to the ED. Workup in the ED included T 98.5, heart rate 78, BP 11/06/1981, respiratory rate 20, 96% on room air, CBC with W BC 5.6, heme globin 14.6, platelet 179 without market left shift, BMP unremarkable aside glucose 327, troponin less than 0.015, chest x-ray with no acute cardiopulmonary findings, EKG with acute evidence of ischemia. Past Medical History Past Medical History (Chronic Problems): Chronic Problems (Last Updated 01/21/18 @ 12:36 by Jaye Loco) Smoker (Chronic) Coronary angioplasty status (Chronic) Nicotine abuse (Chronic) Left atrial enlargement (Chronic) Other fdc (current) drug therapy (Chronic) Aortic root dilatation (Chronic) Atherosclerotic heart disease of [place] coronary artery with angina pectoris with documented spasm (Chronic) S/P stenting in 2010; bare-metal stent to RCA in July 2017; drug-eluting stent to proximal RCA for ISR and PTCA to RPDA and RPLV in February 2018; Presence of coronary angioplasty implant and graft (Chronic) PTCA with BMS to RCA 11/24; [facility] w/PCI of RCA Acute ST segment elevation HI (Chronic) Smoker (Chronic) Essential (primary) hypertension (Chronic) CAD (coronary artery disease) (Chronic) hx AMI 1 stent Seasonal allergies (Chronic) Overactive bladder (Chronic) spinal stenosis (Chronic) Hyperlipidemia (Chronic) Diabetes (Chronic) with diabetic neuropathy Medical History: Medical History (Last Updated 01/21/18 @ 12:36 by Jaye Loco) STEMI (ST elevation myocardial infarction) (Acute) I21.3 Smoker (Chronic) F17.200 Cellulitis of hand, right (Acute) L03.113 cellulitis ulnar aspect right palm Open bite of right hand, subsequent encounter (Acute) S61.451D cat bite infection ulnar aspect right palm Bitten by cat, subsequent encounter (Acute) W55.01XD ulnar aspect right palm Nicotine abuse (Chronic) Z72.0 Left atrial enlargement (Chronic) I51.7 Other watermelon inspector (current) drug therapy (Chronic) Z79.899 Aortic root dilatation (Chronic) I77.810 Atherosclerotic heart disease of [place] coronary artery with angina pectoris with documented spasm (Chronic) I25.111 S/P stenting in 2010; bare-metal stent to RCA in July 2017; drug-eluting stent to proximal RCA for ISR and PTCA to RPDA and RPLV in February 2018; Acute ST segment elevation HI (Chronic) I21.3 Cellulitis of right hand (Acute) L03.113 Smoker (Chronic) F17.200 Cat bite of right hand (Acute) S61.451A, W55.01XA Cat bite (Acute) W55.01XA cat bite ulnar aspect right palm Essential (primary) hypertension (Chronic) I10 CAD (coronary artery disease) (Chronic) I25.10 hx AMI 1 stent Seasonal allergies (Chronic) J30.2 Overactive bladder (Chronic) N32.81 spinal stenosis (Chronic) Hyperlipidemia (Chronic) E78.5 Diabetes (Chronic) E11.9 with diabetic neuropathy ARF (acute renal failure) (Acute) Hypotension (Acute) I95.9 STEMI (ST elevation myocardial infarction) (Resolved) 08/30 Anxiety F41.9 Chest pain R07.9 Intermittent claudication I73.9 Atherosclerosis of [place] coronary artery of [place] heart without angina pectoris I25.10 SEMAJ (obstructive sleep apnea) G47.33 Allergies acetaminophen [From Tylenol] Allergy (Verified 01/07/19 09:11) Angioedema aspirin Allergy (Verified 01/07/19 09:11) Anaphylaxis ibuprofen [From Motrin] Allergy (Verified 01/07/19 09:11) Anaphylaxis metformin Allergy (Verified 01/07/19 09:11) Swelling pollen extracts Allergy (Verified 01/07/19 09:11) Hives caffeine [From Excedrin Migraine] Adverse Reaction (Severe, Verified 01/07/19 09:11) Face swelling morphine Adverse Reaction (Verified 01/07/19 09:11) Other REDDNESS AND ITCHING TO IV SITE Home Medications: Ambulatory Orders Medication Instructions Recorded Citalopram [Celexa] 10 mg PO DAILY 08/02/15 Cyclobenzaprine [Flexeril] 10 mg PO TID 08/02/15 Ranitidine [Zantac] 300 mg PO BID 08/02/15 Cholecalciferol (VIT D3) [Vitamin 1,000 unit PO BID 08/17/15 D3] B12/Levomefolate Calcium/B-6 1 ea PO DAILY 11/17/15 [Foltx Tablet] Esomeprazole Mag Trihydrate 80 mg PO BID 03/05/16 [Nexium] gabapentin 600 mg tablet 600 mg PO TID tab 01/23/18 glipizide ER 2.5 mg tablet, 5 mg PO BID 01/23/18 extended release 24 hr Atorvastatin Calcium [Lipitor] 80 mg PO QHS #30 tab 03/09/18 Nitroglycerin [Nitrostat] 0.4 mg SUBLINGUAL Q5M PRN #10 tab 03/09/18 ticagrelor 90 mg tablet 90 mg PO BID #60 tab 04/07/18 cilostazol 100 mg tablet 100 mg PO BID #60 tab 05/06/18 metoprolol succinate ER 25 mg 25 mg PO DAILY #30 tab 05/13/18 tablet,extended release 24 hr Isosorbide Mononitrate [Imdur] 60 mg PO DAILY 01/07/19 Levocetirizine Dihydrochloride 5 mg PO DAILY 01/07/19 Oxybutynin [Ditropan] 10 mg PO QHS 01/07/19 Surgical History: Surgical History (Last Reviewed 04/01/18 @ 09:33 by Lizzie Galindo) History of coronary artery stent placement (Acute) Onset Date: 03/07/18 Z95.5 S/P stenting in 2010; bare-metal stent to RCA in July 2017; drug-eluting stent to proximal RCA for ISR and PTCA to RPDA and RPLV in February 2018; History of lumbar surgery (Resolved) Z98.890 3 History of hernia repair (Resolved) Z98.890, Z87.19 3 Hx of cholecystectomy (Resolved) Z90.49 3 years ago Coronary angioplasty status (Chronic) Z98.61 Presence of coronary angioplasty implant and graft (Chronic) Z95.5 PTCA with BMS to RCA 11/24; C w/PCI of RCA History of percutaneous coronary intervention Z98.890 PTCA/BMS to RCA 11/2010, PTCA/BMS to RCA 07/2017 H/O arthroscopy of right knee Onset Date: ~2000 Z98.890 History of left heart catheterization Z98.890 11/2010, 03/2015, Surgical History: - - Hernia repair x3, bilateral knee surgery, cholecystectomy, spinal injections, lumbar spinal surgery x3, PCI x3. Psychiatric History: Anxiety, Depression Lives: Alone Smoking Status: Current every day smoker - Started cigarette tobacco usage again approximate 1/2-year prior, currently 1/2 pack/day cigarette tobacco usage. Tobacco Use: Cigarettes Alcohol: None Drugs: None - *Family History Paternal Family History: Family History (Last Reviewed 04/01/18 @ 09:33 by Lizzie Galindo) Grandfather CAD (coronary artery disease) Father CAD (coronary artery disease) Hypertension Heart disease Myocardial infarction, Onset Age: 37 Brother CAD (coronary artery disease) Hypertension Hyperlipemia Grandmother Hyperlipemia Heart disease Diabetes Sister Cancer Other Colon cancer History Items: High Cholesterol, Heart Disease, Hypertension Maternal Family History: Family History (Last Reviewed 04/01/18 @ 09:33 by Lizzie Galindo) Grandfather CAD (coronary artery disease) Father CAD (coronary artery disease) Hypertension Heart disease Myocardial infarction, Onset Age: 37 Brother CAD (coronary artery disease) Hypertension Hyperlipemia Grandmother Hyperlipemia Heart disease Diabetes Sister Cancer Other Colon cancer History Items: Renal Disease, - - Mother with a history of cirrhosis as well. Sibling Family History: Family History (Last Reviewed 04/01/18 @ 09:33 by Lizzie Galindo) Grandfather CAD (coronary artery disease) Father CAD (coronary artery disease) Hypertension Heart disease Myocardial infarction, Onset Age: 37 Brother CAD (coronary artery disease) Hypertension Hyperlipemia Grandmother Hyperlipemia Heart disease Diabetes Sister Cancer Other Colon cancer History Items: - - ca Review of Systems Constitutional: Reports: Malaise, Weakness, Fatigue. Denies: Chills, Fever, Weight Change HEENT: Denies: Head Aches, Sinus Drainage Cardiovascular: Reports: Chest Pain, Chest Pressure. Denies: Chest Tightness, Heaviness, Light Headedness, Orthopnea, Palpitations, Syncope Respiratory: Denies: Cough, Shortness of Breath, Shortness of breath at rest, Shortness of breath upon exertion, Sputum production Gastrointestinal: Denies: Abdominal Pain, Nausea, Vomiting Genitourinary: Denies: Dysuria Musculoskeletal: Reports: Back Pain. Denies: Joint Pain, Joint Tenderness Skin: Denies: Rash, Wounds Neurological: Denies: Numbness, Tingling, Focal weakness Psychiatric: Reports: Anxiety, Depression. Denies: Homicidal Ideations, Suicidal Ideations Hematologic/ Lymphatic: Reports: Easy Bruising, Easy Bleeding VTE Information - Inpt Only VTE Present on Admission: No VTE Mechan Device Prophylaxis: SCD's VTE Pharm Prophylaxis ordered?: Yes Patient Problems: Active and Suspected Problems (Last Updated 01/21/18 @ 12:36 by Jaye Loco) Chest pain (Acute) Subjective: Seated upright in bed, denies any recurrent chest discomfort since initial episode. Objective: Physical Examination: General: awake, alert, oriented x 3 and cooperative, seated upright in the PCU, bed in no apparent distress, no recurrent chest pain. Skin: normal color, turgor, no icterus, cyanosis. HEENT: AT/NC, EOMI, PERRLA, MMM, no carotid bruit or JVD evident. Lungs: Diminished BS, > BL bases, moderate effort, no wheezing, rhonchi or rales noted. Heart: Regular rate and rhythm; no gallop, rub audible. Abdomen: soft, overweight, NTTP, ND, normal BS. Extremities: no cyanosis, clubbing, or edema. Neurological: patient awake, alert, oriented x 3; cognitive function intact; pupils equally reactive to light and accomodation; cranial nerves II-XII grossly normal, moving all 4 extremities, no focal deficits, strength mildly globally decreased. Psychiatric: affect appears normal, no acute evidence of depressive or anxiety feelings. - Physical Exam Vital Signs Temp Pulse Resp BP Pulse Ox 98.5 F 71 17 122/83 H 97 01/07/19 08:59 01/07/19 10:02 01/07/19 10:02 01/07/19 10:02 01/07/19 10:02 Oxygen Flow Rate (L/min) 2 Oxygen Delivery Method Nasal Cannula Weight: 233 lb 11.04 oz Body Mass Index (BMI) 28.4 Finger Stick Blood Glucose 127 Laboratory Tests Past 24 Hrs 01/07/19 01/07/19 09:15 09:15 WBC 5.6 RBC 4.59 L Hgb 14.6 Hct 43.2 MCV 94.1 H MCH 31.8 MCHC 33.8 RDW 12.6 RDW Differential 42.3 Plt Count 179 MPV 10.5 Immature Gran % (Auto) 0.200 Neut % (Auto) 52.5 Lymph % (Auto) 33.2 [place] % (Auto) 10.6 H Eos % (Auto) 3.1 Baso % (Auto) 0.4 Absolute Neuts (auto) 2.9 Absolute Lymphs (auto) 1.85 Total Counted Not Reportable Sodium 136 Potassium 4.1 Chloride 102 Carbon Dioxide 23.0 Anion Gap 11 BUN 15 Creatinine 0.84 Estim Creat Clear Calc 132.04 Est GFR (MDRD) Af Amer 125 Est GFR (MDRD) Non-Af 103 BUN/Creatinine Ratio 17.8 Glucose 327 H Calcium 8.8 Troponin I < 0.015 Assessment/Plan All Active Problems (Last Updated 01/21/18 @ 12:36 by Jaye Loco) Chest pain (Acute) History of coronary artery stent placement (Acute 03/07/18) STEMI (ST elevation myocardial infarction) (Acute) Cellulitis of hand, right (Acute) Open bite of right hand, subsequent encounter (Acute) Bitten by cat, subsequent encounter (Acute) History of lumbar surgery (Resolved) History of hernia repair (Resolved) Hx of cholecystectomy (Resolved) Cellulitis of right hand (Acute) Cat bite of right hand (Acute) Cat bite (Acute) ARF (acute renal failure) (Acute) Hypotension (Acute) STEMI (ST elevation myocardial infarction) (Resolved) The patient is a 48 y/o M w/ PMHx: HTN, HLD, Tobacco use, CAD s/p PCI and hx STEMI, Chronic back pain w/ spinal stenosis, Obesity who now presents to the [facility] ED on 01/07/19 with history of mild dyspepsia the evening prior to current presentation with onset this morning, waking him up, midsternal nonradiating chest heaviness, pressure with additional occasional stabbing pain associated with complete resolution following self administration of sublingual nitroglycerin x2. (1) Chest Pain: Workup in the ED included T 98.5, heart rate 78, BP 11/06/1981, respiratory rate 20, 96% on room air, CBC with W BC 5.6, heme globin 14.6, platelet 179 without market left shift, BMP unremarkable aside glucose 327, troponin less than 0.015, chest x-ray with no acute cardiopulmonary findings, EKG with acute evidence of ischemia. Will admit to PCU, place on a monitored bed to assure no acute myocardial infarction with serial cardiac enzymes and EKGs. Patient is able to perform exercise and does not have LBBB or V-pacing but does have history of PCI/ST-T changes with unclear wall motion abnormality at rest thus will proceed with AM nuclear stress test. ASA, NG, morphine. FLP in AM. Mag pending. (2) CAD: s/p PCI x 3, most recently 12/2017 (Prior from records 2010, 2016), maintain on Cilostazol, Brilinta, metoprolol, atorvastatin. (4) Diabetes mellitus type II: Hold oral home regimen, ADA diet, accu checks w/ ISS, HgbA1c pending, nutrition consulted for educations and teaching. (5) Hypertension: Continue home regimen including isosorbide, metoprolol, PRN hydralazine. (6) Hyperlipidemia: Continue home statin regimen. AM FLP pending. (7) Obesity: Weight loss and lifestyle changes encouraged, nutrition consulted for education and teaching. (8) Tobacco Abuse: Encouraged cessation, notes started smoking again ~ 1/2 year ago, 1/2 ppd currently, inpatient consultation per RT, patient specifically requested NR supplementation. (9) Anxiety and Depression: Continue home citalopram regimen. (10) GERD: PPI. (11) DVT Prophylaxis: SCDs, lovenox. Code Visit OBSV E&M: [id number] Initial observation care L3
--- NOTE | 2019-01-07 10:58 | NURSING ---
PCU OBS CP WHITE
--- NOTE | 2019-01-07 11:03 | HP.PCM_ITS ---
Problem List (1) Chest pain Status: Acute Qualifiers: Chest pain type: unspecified Qualified Code(s): R07.9 - Chest pain, unspecified (2) Nicotine abuse Status: Chronic (3) Essential (primary) hypertension Status: Chronic (4) CAD (coronary artery disease) Status: Chronic Qualifiers: Coronary Disease-Associated Artery/Lesion type: unspecified vessel or lesion type [place] vs. transplanted heart: unspecified whether [place] or transplanted heart Associated angina: angina presence unspecified Qualified Code(s): I25.10 - Atherosclerotic heart disease of [place] coronary artery without angina pectoris Comment: hx AMI 1 stent (5) Hyperlipidemia Status: Chronic Qualifiers: Hyperlipidemia type: pure hypercholesterolemia Qualified Code(s): E78.00 - Pure hypercholesterolemia, unspecified; E78.0 - Pure hypercholesterolemia (6) Diabetes Status: Chronic Qualifiers: Diabetes mellitus type: type 2 Diabetes mellitus exterminator insulin use: without skilled nursing use Diabetes mellitus complication status: with neurologic complications Diabetes mellitus complication detail: with unspecified neuropathy Qualified Code(s): E11.40 - Type 2 diabetes mellitus with diabetic neuropathy, unspecified Comment: with diabetic neuropathy History of Present Illness Date of Admission: 01/07/19 Chief Complaint: Chest pain The patient is a 48 y/o M w/ PMHx: HTN, HLD, Anxiety and Depression, Tobacco use, CAD s/p PCI, Chronic back pain w/ spinal stenosis, Obesity, most recent admission 03/07/18 with STEMI w/ cardiac catheterization w/ totally occluded proximal RCA with in-stent thrombosis with balloon angioplasty performed with aspiration thrombectomy with some distal embolization of the clot noted in the right posterior descending artery which was also treated with balloon angioplasty and clot embolization in the right posterior lateral ventricle branch treated with balloon angioplasty and also noted culprit lesion with an in-stent restenosis therefore a resolute integrity drug-eluting stent was deployed who now re-presents to the [facility] ED on 01/07/19 with history of mild dyspepsia the evening prior to current presentation with onset this morning, waking him up, midsternal, 8-9/10 in severity, nonradiating chest heaviness, pressure with additional occasional stabbing pain associated with complete resolution following self administration of sublingual nitroglycerin x2 with no associated dyspnea, diaphoresis, nausea or emesis. Patient was noted to be chest pain-free upon arrival to the ED. Workup in the ED included T 98.5, heart rate 78, BP 11/06/1981, respiratory rate 20, 96% on room air, CBC with W BC 5.6, heme globin 14.6, platelet 179 without market left shift, BMP unremarkable aside glucose 327, troponin less than 0.015, chest x-ray with no acute cardiopulmonary findings, EKG with acute evidence of ischemia. Past Medical History Past Medical History (Chronic Problems): Chronic Problems (Last Updated 01/21/18 @ 12:36 by Jaye Loco) Smoker (Chronic) Coronary angioplasty status (Chronic) Nicotine abuse (Chronic) Left atrial enlargement (Chronic) Other skilled nursing (current) drug therapy (Chronic) Aortic root dilatation (Chronic) Atherosclerotic heart disease of [place] coronary artery with angina pectoris with documented spasm (Chronic) S/P stenting in 2010; bare-metal stent to RCA in July 2017; drug-eluting stent to proximal RCA for ISR and PTCA to RPDA and RPLV in February 2018; Presence of coronary angioplasty implant and graft (Chronic) PTCA with BMS to RCA 11/24; [facility] w/PCI of RCA Acute ST segment elevation [place] (Chronic) Smoker (Chronic) Essential (primary) hypertension (Chronic) CAD (coronary artery disease) (Chronic) hx AMI 1 stent Seasonal allergies (Chronic) Overactive bladder (Chronic) spinal stenosis (Chronic) Hyperlipidemia (Chronic) Diabetes (Chronic) with diabetic neuropathy Medical History: Medical History (Last Updated 01/21/18 @ 12:36 by Jaye Loco) STEMI (ST elevation myocardial infarction) (Acute) I21.3 Smoker (Chronic) F17.200 Cellulitis of hand, right (Acute) L03.113 cellulitis ulnar aspect right palm Open bite of right hand, subsequent encounter (Acute) S61.451D cat bite infection ulnar aspect right palm Bitten by cat, subsequent encounter (Acute) W55.01XD ulnar aspect right palm Nicotine abuse (Chronic) Z72.0 Left atrial enlargement (Chronic) I51.7 Other exterminator (current) drug therapy (Chronic) Z79.899 Aortic root dilatation (Chronic) I77.810 Atherosclerotic heart disease of [place] coronary artery with angina pectoris with documented spasm (Chronic) I25.111 S/P stenting in 2010; bare-metal stent to RCA in July 2017; drug-eluting stent to proximal RCA for ISR and PTCA to RPDA and RPLV in February 2018; Acute ST segment elevation [place] (Chronic) I21.3 Cellulitis of right hand (Acute) L03.113 Smoker (Chronic) F17.200 Cat bite of right hand (Acute) S61.451A, W55.01XA Cat bite (Acute) W55.01XA cat bite ulnar aspect right palm Essential (primary) hypertension (Chronic) I10 CAD (coronary artery disease) (Chronic) I25.10 hx AMI 1 stent Seasonal allergies (Chronic) J30.2 Overactive bladder (Chronic) N32.81 spinal stenosis (Chronic) Hyperlipidemia (Chronic) E78.5 Diabetes (Chronic) E11.9 with diabetic neuropathy ARF (acute renal failure) (Acute) Hypotension (Acute) I95.9 STEMI (ST elevation myocardial infarction) (Resolved) 08/30 Anxiety F41.9 Chest pain R07.9 Intermittent claudication I73.9 Atherosclerosis of [place] coronary artery of [place] heart without angina pectoris I25.10 SEMAJ (obstructive sleep apnea) G47.33 Allergies acetaminophen [From Tylenol] Allergy (Verified 01/07/19 09:11) Angioedema aspirin Allergy (Verified 01/07/19 09:11) Anaphylaxis ibuprofen [From Motrin] Allergy (Verified 01/07/19 09:11) Anaphylaxis metformin Allergy (Verified 01/07/19 09:11) Swelling pollen extracts Allergy (Verified 01/07/19 09:11) Hives caffeine [From Excedrin Migraine] Adverse Reaction (Severe, Verified 01/07/19 09:11) Face swelling morphine Adverse Reaction (Verified 01/07/19 09:11) Other REDDNESS AND ITCHING TO IV SITE Home Medications: Ambulatory Orders Medication Instructions Recorded Citalopram [Celexa] 10 mg PO DAILY 08/02/15 Cyclobenzaprine [Flexeril] 10 mg PO TID 08/02/15 Ranitidine [Zantac] 300 mg PO BID 08/02/15 Cholecalciferol (VIT D3) [Vitamin 1,000 unit PO BID 08/17/15 D3] B12/Levomefolate Calcium/B-6 1 ea PO DAILY 11/17/15 [Foltx Tablet] Esomeprazole Mag Trihydrate 80 mg PO BID 03/05/16 [Nexium] gabapentin 600 mg tablet 600 mg PO TID tab 01/23/18 glipizide ER 2.5 mg tablet, 5 mg PO BID 01/23/18 extended release 24 hr Atorvastatin Calcium [Lipitor] 80 mg PO QHS #30 tab 03/09/18 Nitroglycerin [Nitrostat] 0.4 mg SUBLINGUAL Q5M PRN #10 tab 03/09/18 ticagrelor 90 mg tablet 90 mg PO BID #60 tab 04/07/18 cilostazol 100 mg tablet 100 mg PO BID #60 tab 05/06/18 metoprolol succinate ER 25 mg 25 mg PO DAILY #30 tab 05/13/18 tablet,extended release 24 hr Isosorbide Mononitrate [Imdur] 60 mg PO DAILY 01/07/19 Levocetirizine Dihydrochloride 5 mg PO DAILY 01/07/19 Oxybutynin [Ditropan] 10 mg PO QHS 01/07/19 Surgical History: Surgical History (Last Reviewed 04/01/18 @ 09:33 by Lizzie Galindo) History of coronary artery stent placement (Acute) Onset Date: 03/07/18 Z95.5 S/P stenting in 2010; bare-metal stent to RCA in July 2017; drug-eluting stent to proximal RCA for ISR and PTCA to RPDA and RPLV in February 2018; History of lumbar surgery (Resolved) Z98.890 3 History of hernia repair (Resolved) Z98.890, Z87.19 3 Hx of cholecystectomy (Resolved) Z90.49 3 years ago Coronary angioplasty status (Chronic) Z98.61 Presence of coronary angioplasty implant and graft (Chronic) Z95.5 PTCA with BMS to RCA 11/24; C w/PCI of RCA History of percutaneous coronary intervention Z98.890 PTCA/BMS to RCA 11/2010, PTCA/BMS to RCA 07/2017 H/O arthroscopy of right knee Onset Date: ~2000 Z98.890 History of left heart catheterization Z98.890 11/2010, 03/2015, Surgical History: - - Hernia repair x3, bilateral knee surgery, cholecystectomy, spinal injections, lumbar spinal surgery x3, PCI x3. Psychiatric History: Anxiety, Depression Lives: Alone Smoking Status: Current every day smoker - Started cigarette tobacco usage again approximate 1/2-year prior, currently 1/2 pack/day cigarette tobacco usage. Tobacco Use: Cigarettes Alcohol: None Drugs: None - *Family History Paternal Family History: Family History (Last Reviewed 04/01/18 @ 09:33 by Lizzie Galindo) Grandfather CAD (coronary artery disease) Father CAD (coronary artery disease) Hypertension Heart disease Myocardial infarction, Onset Age: 37 Brother CAD (coronary artery disease) Hypertension Hyperlipemia Grandmother Hyperlipemia Heart disease Diabetes Sister Cancer Other Colon cancer History Items: High Cholesterol, Heart Disease, Hypertension Maternal Family History: Family History (Last Reviewed 04/01/18 @ 09:33 by Lizzie Galindo) Grandfather CAD (coronary artery disease) Father CAD (coronary artery disease) Hypertension Heart disease Myocardial infarction, Onset Age: 37 Brother CAD (coronary artery disease) Hypertension Hyperlipemia Grandmother Hyperlipemia Heart disease Diabetes Sister Cancer Other Colon cancer History Items: Renal Disease, - - Mother with a history of cirrhosis as well. Sibling Family History: Family History (Last Reviewed 04/01/18 @ 09:33 by Lizzie Galindo) Grandfather CAD (coronary artery disease) Father CAD (coronary artery disease) Hypertension Heart disease Myocardial infarction, Onset Age: 37 Brother CAD (coronary artery disease) Hypertension Hyperlipemia Grandmother Hyperlipemia Heart disease Diabetes Sister Cancer Other Colon cancer History Items: - - ca Review of Systems Constitutional: Reports: Malaise, Weakness, Fatigue. Denies: Chills, Fever, Weight Change HEENT: Denies: Head Aches, Sinus Drainage Cardiovascular: Reports: Chest Pain, Chest Pressure. Denies: Chest Tightness, Heaviness, Light Headedness, Orthopnea, Palpitations, Syncope Respiratory: Denies: Cough, Shortness of Breath, Shortness of breath at rest, Shortness of breath upon exertion, Sputum production Gastrointestinal: Denies: Abdominal Pain, Nausea, Vomiting Genitourinary: Denies: Dysuria Musculoskeletal: Reports: Back Pain. Denies: Joint Pain, Joint Tenderness Skin: Denies: Rash, Wounds Neurological: Denies: Numbness, Tingling, Focal weakness Psychiatric: Reports: Anxiety, Depression. Denies: Homicidal Ideations, Suicidal Ideations Hematologic/ Lymphatic: Reports: Easy Bruising, Easy Bleeding VTE Information - Inpt Only VTE Present on Admission: No VTE Mechan Device Prophylaxis: SCD's VTE Pharm Prophylaxis ordered?: Yes Patient Problems: Active and Suspected Problems (Last Updated 01/21/18 @ 12:36 by Jaye Loco) Chest pain (Acute) Subjective: Seated upright in bed, denies any recurrent chest discomfort since initial episode. Objective: Physical Examination: General: awake, alert, oriented x 3 and cooperative, seated upright in the PCU, bed in no apparent distress, no recurrent chest pain. Skin: normal color, turgor, no icterus, cyanosis. HEENT: AT/NC, EOMI, PERRLA, MMM, no carotid bruit or JVD evident. Lungs: Diminished BS, > BL bases, moderate effort, no wheezing, rhonchi or rales noted. Heart: Regular rate and rhythm; no gallop, rub audible. Abdomen: soft, overweight, NTTP, ND, normal BS. Extremities: no cyanosis, clubbing, or edema. Neurological: patient awake, alert, oriented x 3; cognitive function intact; pupils equally reactive to light and accomodation; cranial nerves II-XII grossly normal, moving all 4 extremities, no focal deficits, strength mildly globally decreased. Psychiatric: affect appears normal, no acute evidence of depressive or anxiety feelings. - Physical Exam Vital Signs Temp Pulse Resp BP Pulse Ox 98.5 F 71 17 122/83 H 97 01/07/19 08:59 01/07/19 10:02 01/07/19 10:02 01/07/19 10:02 01/07/19 10:02 Oxygen Flow Rate (L/min) 2 Oxygen Delivery Method Nasal Cannula Weight: 233 lb 11.04 oz Body Mass Index (BMI) 28.4 Finger Stick Blood Glucose 127 Laboratory Tests Past 24 Hrs 01/07/19 01/07/19 09:15 09:15 WBC 5.6 RBC 4.59 L Hgb 14.6 Hct 43.2 MCV 94.1 H MCH 31.8 MCHC 33.8 RDW 12.6 RDW Differential 42.3 Plt Count 179 MPV 10.5 Immature Gran % (Auto) 0.200 Neut % (Auto) 52.5 Lymph % (Auto) 33.2 [place] % (Auto) 10.6 H Eos % (Auto) 3.1 Baso % (Auto) 0.4 Absolute Neuts (auto) 2.9 Absolute Lymphs (auto) 1.85 Total Counted Not Reportable Sodium 136 Potassium 4.1 Chloride 102 Carbon Dioxide 23.0 Anion Gap 11 BUN 15 Creatinine 0.84 Estim Creat Clear Calc 132.04 Est GFR (MDRD) Af Amer 125 Est GFR (MDRD) Non-Af 103 BUN/Creatinine Ratio 17.8 Glucose 327 H Calcium 8.8 Troponin I < 0.015 Assessment/Plan All Active Problems (Last Updated 01/21/18 @ 12:36 by Jaye Loco) Chest pain (Acute) History of coronary artery stent placement (Acute 03/07/18) STEMI (ST elevation myocardial infarction) (Acute) Cellulitis of hand, right (Acute) Open bite of right hand, subsequent encounter (Acute) Bitten by cat, subsequent encounter (Acute) History of lumbar surgery (Resolved) History of hernia repair (Resolved) Hx of cholecystectomy (Resolved) Cellulitis of right hand (Acute) Cat bite of right hand (Acute) Cat bite (Acute) ARF (acute renal failure) (Acute) Hypotension (Acute) STEMI (ST elevation myocardial infarction) (Resolved) The patient is a 48 y/o M w/ PMHx: HTN, HLD, Tobacco use, CAD s/p PCI and hx STEMI, Chronic back pain w/ spinal stenosis, Obesity who now presents to the [facility] ED on 01/07/19 with history of mild dyspepsia the evening prior to current presentation with onset this morning, waking him up, midsternal nonradiating chest heaviness, pressure with additional occasional stabbing pain associated with complete resolution following self administration of sublingual nitroglycerin x2. (1) Chest Pain: Workup in the ED included T 98.5, heart rate 78, BP 11/06/1981, respiratory rate 20, 96% on room air, CBC with W BC 5.6, heme globin 14.6, platelet 179 without market left shift, BMP unremarkable aside glucose 327, troponin less than 0.015, chest x-ray with no acute cardiopulmonary findings, EKG with acute evidence of ischemia. Will admit to PCU, place on a monitored bed to assure no acute myocardial infarction with serial cardiac enzymes and EKGs. Patient is able to perform exercise and does not have LBBB or V-pacing but does have history of PCI/ST-T changes with unclear wall motion abnormality at rest thus will proceed with AM nuclear stress test. ASA, NG, morphine. FLP in AM. Mag pending. (2) CAD: s/p PCI x 3, most recently 12/2017 (Prior from records 2010, 2016), maintain on Cilostazol, Brilinta, metoprolol, atorvastatin. (4) Diabetes mellitus type II: Hold oral home regimen, ADA diet, accu checks w/ ISS, HgbA1c pending, nutrition consulted for educations and teaching. (5) Hypertension: Continue home regimen including isosorbide, metoprolol, PRN hydralazine. (6) Hyperlipidemia: Continue home statin regimen. AM FLP pending. (7) Obesity: Weight loss and lifestyle changes encouraged, nutrition consulted for education and teaching. (8) Tobacco Abuse: Encouraged cessation, notes started smoking again ~ 1/2 year ago, 1/2 ppd currently, inpatient consultation per RT, patient specifically requested NR supplementation. (9) Anxiety and Depression: Continue home citalopram regimen. (10) GERD: PPI. (11) DVT Prophylaxis: SCDs, lovenox. Code Visit OBSV E&M: 81177 Initial observation care L3
--- NOTE | 2019-01-07 11:28 | EKG12_ITS ---
Test Reason : AM EKG Blood Pressure : / mmHG Vent. Rate : 070 BPM Atrial Rate : 070 BPM P-R Int : 170 ms QRS Dur : 092 ms QT Int : 422 ms P-R-T Axes : 061 032 006 degrees QTc Int : 455 ms Normal sinus rhythm Inferior-posterior infarct , age undetermined Abnormal ECG Confirmed by GLADIS JONES, CANDELARIA ([id number]), assignment editor YVONNE RUFF ([id number]) on 01/09/2019 1:48:13 PM Referred By: ABRAM Confirmed By:CANDELARIA GRIFFITH MD
[2019-01-07 12:07] LABS: Magnesium 1.8 mg/dL (1.6-2.6)
[2019-01-07 12:29] LABS: Hemoglobin A1c 10.1 % (4.2-6.3)
[2019-01-07 12:36] LABS: Bedside Glucose 307 mg/dL (70-110)
[2019-01-07] MEDS: Pantoprazole Sodium 40 MG Tablet PO ×2 (13:05→21:09)
[2019-01-07] MEDS: TICAGRELOR 90 MG TABLET PO ×2 (13:05→21:09)
[2019-01-07] MEDS: Metoprolol(XL)Succ 25 MG Tablet PO (13:05)
[2019-01-07] MEDS: Gabapentin 600 MG Tablet PO ×2 (13:05→17:13)
[2019-01-07] MEDS: Isosorbide Mononitrate 60 MG Tablet PO (13:06)
[2019-01-07] MEDS: Citalopram 10 MG Tablet PO (13:06)
[2019-01-07] MEDS: Cilostazol 50 MG Tablet 100 MG PO ×2 (13:06→21:09)
[2019-01-07] MEDS: Enoxaparin 40 MG/0.4 ML Syringe SC (13:07)
[2019-01-07] MEDS: Oxybutynin 5 MG Tablet 10 MG PO (21:09)
[2019-01-07] MEDS: Atorvastatin Calcium 80 MG Tablet PO (21:09)
[2019-01-07] MEDS: Famotidine 20 MG Tablet 40 MG PO (21:09)
[2019-01-07 21:15] LABS: Bedside Glucose 405 mg/dL (70-110)
[2019-01-07] MEDS: Insulin Lispro 100 UNIT/ML INSULN.PEN SC (21:45)
--- NOTE | 2019-01-07 23:55 | NURSING ---
Nicoderm patch removed from left deltoid at this time for stress test in AM.
[2019-01-08] VITALS (16 sets, daily range): BP systolic 101–129; BP diastolic 57–94; PULSE 64–87; RESP 15–19; TEMP 36.3–36.7; O2SAT 95–100
[2019-01-08] MEDS: 0.9% Normal Saline 1,000 ML 100 ML IV (00:09)
[2019-01-08] MEDS: 0.9% NaCl Peripheral Flush Adult/Peds IV (00:10)
[2019-01-08 04:59] LABS: Hematocrit 41.1 % (40-54); Hemoglobin 13.9 g/dl (13.0-16.5); Mean Corp Hgb Conc 33.8 g/gl (32-36); Mean Corpuscular Hgb 31.8 pg (27.0-32.0); Mean Corpuscular Volume 94.1 fL (80-94); Mean Platelet Vol. 10.7 fl (6.2-12.0); Platelet Count 168 K/mm3 (150-450); RBC Distribution Width CV 12.4 % (11.6-14.6); RBC Distribution Width SD 41.8 fl (35.1-43.9); Red Blood Count 4.37 M/mm3 (4.6-6.2); White Blood Count 5.1 K/mm3 (4.4-11.0)
[2019-01-08 05:00] LABS: Scan Indicated on CBC? Y/N NO
[2019-01-08 05:02] LABS: International Normalized Ratio 1.1; Partial Thromboplast Time 26.1 Seconds (24.1-36.2); Prothrombin Time (Protime)PT. 13.5 SECONDS (11.7-14.9)
[2019-01-08 05:28] LABS: ALB/GLOB Ratio 0.8 RATIO (0.9-2.4); AST(SGOT) 11 U/L (15-37); Alanine Aminotransfer ALT/SGPT 26 U/L (16-61); Albumin, Serum 3.1 g/dL (3.2-5.0); Alkaline Phosphatase 119 U/L (45-117); Anion Gap 7 (5-15); BUN 13 mg/dL (7-18); BUN/Creat Ratio 14.4 RATIO (10-20); Calcium,Total 8.9 mg/dL (8.5-10.1); Chloride 102 mmol/L (98-107); Cholesterol 125 mg/dL (200); EST Glomerular Filtration Rate 95 mL/min (>60); Est Glom Filt Rate - Afr Amer 115 mL/min (>60); Estimated Creatinine Clearance 123.23 ml/min; Globulin 3.8 g/dL (2.2-4.2); Glucose 196 mg/dL (74-106); High Density Lipoprotein 33 mg/dL; Protein, Total 6.9 g/dL (6.4-8.2); Sodium Level 137 mmol/L (136-145); Triglycerides 104 mg/dL; Very Low Density Lipoprotein 21 mg/dL (5-40)
[2019-01-08] MEDS: TICAGRELOR 90 MG TABLET PO (05:44)
--- NOTE | 2019-01-08 05:55 | EKG12_ITS ---
Test Reason : CP ADMIT Blood Pressure : / mmHG Vent. Rate : 077 BPM Atrial Rate : 077 BPM P-R Int : 178 ms QRS Dur : 088 ms QT Int : 412 ms P-R-T Axes : 066 007 000 degrees QTc Int : 466 ms Normal sinus rhythm Inferior-posterior infarct , age undetermined Abnormal ECG Confirmed by GLADIS JONES, CANDELARIA ([id number]), online content editor YVONNE RUFF ([id number]) on 01/09/2019 1:49:59 PM Referred By: ABRAM Confirmed By:CANDELARIA GRIFFITH MD
[2019-01-08 05:56] LABS: Bedside Glucose 198 mg/dL (70-110)
--- NOTE | 2019-01-08 06:25 | NURSING ---
patient off floor at this time for stress test
--- NOTE | 2019-01-08 08:40 | STRESSREP ---
Stress Test Report Date: 01-08-19 Procedure: Pharmacologic stress nuclear imaging study Indications: Chest pain; CAD; status post VT; status post PCI Consent: Per the patient Procedure: The patient underwent pharmacologic (Regadenoson) evaluation with a peak heart rate of 103 beats per minute (59% predicted maximal heart rate) and a peak blood pressure of 110/74 mmHg. The baseline ECG demonstrated normal sinus rhythm; inferior VT of indeterminate age. The peak pharmacologic ECG demonstrated no obvious ECG changes. There were no cardiac dysrhythmias pretest, during pharmacologic infusion, or recovery. There was no complaint of chest discomfort during pharmacologic infusion or recovery. The examination was discontinued secondary to completion of protocol. Impression: 1. Pharmacologic (Regadenoson) evaluation 2. Peak pharmacologic ECG with no obvious ECG changes. 3. There were no cardiac dysrhythmias pretest, during pharmacologic infusion, or recovery. 4. Nuclear images pending Myocardial perfusion imaging study: Technique: The patient was injected with 14.7 millicuries of technetium 99m Cardiolite and subsequently rest SPECT Cardiolite nuclear imaging was obtained in the horizontal long, vertical long, and short axis views. The patient underwent pharmacologic (Regadenoson) evaluation with a peak heart rate of 103 beats per minute (59 % percent predicted maximal heart rate) and a peak blood pressure of 110/74 mmHg. The patient was injected with 44.4 millicuries of technetium 99m Cardiolite and subsequently stress SPECT Cardiolite nuclear imaging was obtained in the horizontal long, vertical long, and short axis views. A gated Cardiolite study at peak stress was obtained. Interpretation: Rest and stress SPECT Cardiolite nuclear imaging status post realignment, normalization, and attenuation correction demonstrate some diminished to absence of myocardial perfusion/tracer uptake in the basal inferior septal/inferior segments without significant change between rest and stress. Status post stress there is also notation of diminished tracer uptake in portions of the mid towards distal inferior segments. There is diminished end-systolic thickening and brightening.. The gated Cardiolite study demonstrates myocardial thickening and inward wall motion. The reported LVEF is 63 %. Impression: 1. Rest and stress SPECT Cardiolite nuclear imaging demonstrate myocardial perfusion changes compatible with an area of previous myocardial injury/infarction involving portions of the basal inferoseptal/inferior segments as well as post stress myocardial perfusion changes compatible with [place]-infarct related myocardial ischemia in portions of the mid to distal inferior segments. 2. The gated Cardiolite study reports an LVEF of 63 %. This note was generated with MasteryConnectation software. It may contain incorrect words, spelling, and punctuation that were not noted in checking the note before signing.
--- NOTE | 2019-01-08 08:46 | STRESSREP_ITS ---
Stress Test Report Date: 01-08-19 Procedure: Pharmacologic stress nuclear imaging study Indications: Chest pain; CAD; status post MS; status post PCI Consent: Per the patient Procedure: The patient underwent pharmacologic (Regadenoson) evaluation with a peak heart rate of 103 beats per minute (59% predicted maximal heart rate) and a peak blood pressure of 110/74 mmHg. The baseline ECG demonstrated normal sinus rhythm; inferior MS of indeterminate age. The peak pharmacologic ECG demonstrated no obvious ECG changes. There were no cardiac dysrhythmias pretest, during pharmacologic infusion, or recovery. There was no complaint of chest discomfort during pharmacologic infusion or recovery. The examination was discontinued secondary to completion of protocol. Impression: 1. Pharmacologic (Regadenoson) evaluation 2. Peak pharmacologic ECG with no obvious ECG changes. 3. There were no cardiac dysrhythmias pretest, during pharmacologic infusion, or recovery. 4. Nuclear images pending Myocardial perfusion imaging study: Technique: The patient was injected with 14.7 millicuries of technetium 99m Cardiolite and subsequently rest SPECT Cardiolite nuclear imaging was obtained in the horizontal long, vertical long, and short axis views. The patient underwent pharmacologic (Regadenoson) evaluation with a peak heart rate of 103 beats per minute (59 % percent predicted maximal heart rate) and a peak blood pressure of 110/74 mmHg. The patient was injected with 44.4 millicuries of technetium 99m Cardiolite and subsequently stress SPECT Cardiolite nuclear imaging was obtained in the horizontal long, vertical long, and short axis views. A gated Cardiolite study at peak stress was obtained. Interpretation: Rest and stress SPECT Cardiolite nuclear imaging status post realignment, normalization, and attenuation correction demonstrate some diminished to absence of myocardial perfusion/tracer uptake in the basal inferior septal/inferior segments without significant change between rest and stress. Status post stress there is also notation of diminished tracer uptake in portions of the mid towards distal inferior segments. There is diminished end-systolic thickening and brightening.. The gated Cardiolite study demonstrates myocardial thickening and inward wall motion. The reported LVEF is 63 %. Impression: 1. Rest and stress SPECT Cardiolite nuclear imaging demonstrate myocardial perfusion changes compatible with an area of previous myocardial injury/infarction involving portions of the basal inferoseptal/inferior segments as well as post stress myocardial perfusion changes compatible with [place]-infarct related myocardial ischemia in portions of the mid to distal inferior segments. 2. The gated Cardiolite study reports an LVEF of 63 %. This note was generated with Molcureation software. It may contain incorrect words, spelling, and punctuation that were not noted in checking the note before signing.
--- NOTE | 2019-01-08 09:00 | NURSING ---
informed pt stress test was abnormal, will be having cardiac cath be dr kelly voiced understanding of procedure, consent form signed, pt informed contact center engineer per text
--- NOTE | 2019-01-08 09:15 | CASEMGMT ---
According to the [facility] website, the following are in-network tertiary facilities: [facility], [place], [place], [facility], [place], and [facility]. Kate MARCUS CM
--- NOTE | 2019-01-08 09:29 | PCM.CONS.C ---
Problem List (1) Chest pain Status: Acute Qualifiers: Chest pain type: unspecified Qualified Code(s): R07.9 - Chest pain, unspecified (2) CAD (coronary artery disease) Status: Chronic Qualifiers: Coronary Disease-Associated Artery/Lesion type: [place] artery (3) History of coronary artery stent placement Status: Chronic Comment: S/P stenting in 2010; bare-metal stent to RCA in July 2017; drug-eluting stent to proximal RCA for ISR and PTCA to RPDA and RPLV in February 2018; (4) Hyperlipidemia Status: Chronic Qualifiers: Hyperlipidemia type: pure hypercholesterolemia Qualified Code(s): E78.00 - Pure hypercholesterolemia, unspecified; E78.0 - Pure hypercholesterolemia (5) Essential (primary) hypertension Status: Chronic Reason for Consult Date of Consultation: 01/08/19 History of Present Illness: The patient is a 48 year old white male with a past cardiovascular history of hyperlipidemia, hypertension, CAD, status post CA, status post PCI (RCA-repeat), who presents for evaluation of chest discomfort, dyspnea, and an abnormal pharmacologic stress nuclear imaging study. He noted chest heaviness/pressure with intermittent stabbing sensation. He also noted concerns of dyspnea. There was no report of nausea emesis or diaphoresis. He did use nitroglycerin sublingual x2 and felt he had improvement. He subsequently presented to the emergency department for further evaluation. At that time he was without ongoing symptoms. He was noted to have a negative troponin I level. An ECG demonstrated sinus rhythm with an inferior and/or inferior posterior CA pattern of indeterminate age. A chest x-ray was reported as demonstrating no acute cardiopulmonary disease process. He was subsequently placed in the PCU for further evaluation and care. He has had no complaint of recurrent symptoms. His cardiac enzymes have been remained negative. He has follow-up ECG demonstrated no new acute ECG changes. He did have a follow-up pharmacologic stress nuclear imaging study. It did demonstrate findings compatible with an area of previous myocardial injury/infarction involving portions of the basal inferior septal and inferior segments with post stress myocardial perfusion changes suggestive of stress-induced myocardial ischemia in the mid to distal inferior segments. Thus he was recommended for further evaluation with diagnostic cardiac catheterization. In the meantime the patient has denied any orthopnea or PND or peripheral pitting edema. He states he has decreased his tobacco intake. He has lost weight. He states he has been compliant with his antiplatelet therapy-Brilinta. He is not on aspirin therapy secondary to an aspirin allergy. [] Past Medical History Allergies/Adverse Reactions: Allergies acetaminophen [From Tylenol] Allergy (Verified 01/07/19 09:11) Angioedema aspirin Allergy (Verified 01/07/19 09:11) Anaphylaxis ibuprofen [From Motrin] Allergy (Verified 01/07/19 09:11) Anaphylaxis metformin Allergy (Verified 01/07/19 09:11) Swelling pollen extracts Allergy (Verified 01/07/19 09:11) Hives caffeine [From Excedrin Migraine] Adverse Reaction (Severe, Verified 01/07/19 09:11) Face swelling morphine Adverse Reaction (Verified 01/07/19 09:11) Other REDDNESS AND ITCHING TO IV SITE Home Medications: Ambulatory Orders Medication Instructions Recorded Citalopram [Celexa] 10 mg PO DAILY 08/02/15 Cyclobenzaprine [Flexeril] 10 mg PO TID 08/02/15 Ranitidine [Zantac] 300 mg PO BID 08/02/15 Cholecalciferol (VIT D3) [Vitamin 1,000 unit PO BID 08/17/15 D3] B12/Levomefolate Calcium/B-6 1 ea PO DAILY 11/17/15 [Foltx Tablet] Esomeprazole Mag Trihydrate 80 mg PO BID 03/05/16 [Nexium] gabapentin 600 mg tablet 600 mg PO TID tab 01/23/18 glipizide ER 2.5 mg tablet, 5 mg PO BID 01/23/18 extended release 24 hr Atorvastatin Calcium [Lipitor] 80 mg PO QHS #30 tab 03/09/18 Nitroglycerin [Nitrostat] 0.4 mg SUBLINGUAL Q5M PRN #10 tab 03/09/18 ticagrelor 90 mg tablet 90 mg PO BID #60 tab 04/07/18 cilostazol 100 mg tablet 100 mg PO BID #60 tab 05/06/18 metoprolol succinate ER 25 mg 25 mg PO DAILY #30 tab 05/13/18 tablet,extended release 24 hr Isosorbide Mononitrate [Imdur] 60 mg PO DAILY 01/07/19 Levocetirizine Dihydrochloride 5 mg PO DAILY 01/07/19 Oxybutynin [Ditropan] 10 mg PO QHS 01/07/19 Past Medical History (Chronic Problems): Chronic Problems (Last Updated 01/21/18 @ 12:36 by Jaye Loco) CAD (coronary artery disease) (Chronic) History of coronary artery stent placement (Chronic 03/07/18) S/P stenting in 2010; bare-metal stent to RCA in July 2017; drug-eluting stent to proximal RCA for ISR and PTCA to RPDA and RPLV in February 2018; Smoker (Chronic) Coronary angioplasty status (Chronic) Nicotine abuse (Chronic) Left atrial enlargement (Chronic) Other [facility] (current) drug therapy (Chronic) Aortic root dilatation (Chronic) Atherosclerotic heart disease of [place] coronary artery with angina pectoris with documented spasm (Chronic) S/P stenting in 2010; bare-metal stent to RCA in July 2017; drug-eluting stent to proximal RCA for ISR and PTCA to RPDA and RPLV in February 2018; Presence of coronary angioplasty implant and graft (Chronic) PTCA with BMS to RCA 11/24; [facility] w/PCI of RCA Acute ST segment elevation CA (Chronic) Smoker (Chronic) Essential (primary) hypertension (Chronic) CAD (coronary artery disease) (Chronic) hx AMI 1 stent Seasonal allergies (Chronic) Overactive bladder (Chronic) spinal stenosis (Chronic) Hyperlipidemia (Chronic) Diabetes (Chronic) with diabetic neuropathy Surgical History: angioplasty, - - Hernia repair x3, bilateral knee surgery, cholecystectomy, spinal injections, lumbar spinal surgery x3, PCI x3. Psychiatric History: Anxiety, Depression - *Family History Paternal Family History: Family History (Last Reviewed 04/01/18 @ 09:33 by Lizzie Galindo) Grandfather CAD (coronary artery disease) Father CAD (coronary artery disease) Hypertension Heart disease Myocardial infarction, Onset Age: 37 Brother CAD (coronary artery disease) Hypertension Hyperlipemia Grandmother Hyperlipemia Heart disease Diabetes Sister Cancer Other Colon cancer History Items: High Cholesterol, Heart Disease, Hypertension Maternal Family History: Family History (Last Reviewed 04/01/18 @ 09:33 by Lizzie Galindo) Grandfather CAD (coronary artery disease) Father CAD (coronary artery disease) Hypertension Heart disease Myocardial infarction, Onset Age: 37 Brother CAD (coronary artery disease) Hypertension Hyperlipemia Grandmother Hyperlipemia Heart disease Diabetes Sister Cancer Other Colon cancer History Items: Renal Disease, - - Mother with a history of cirrhosis as well. Sibling Family History: Family History (Last Reviewed 04/01/18 @ 09:33 by Lizzie Galindo) Grandfather CAD (coronary artery disease) Father CAD (coronary artery disease) Hypertension Heart disease Myocardial infarction, Onset Age: 37 Brother CAD (coronary artery disease) Hypertension Hyperlipemia Grandmother Hyperlipemia Heart disease Diabetes Sister Cancer Other Colon cancer History Items: - - ca Lives: Alone Smoking Status: Current every day smoker - Started cigarette tobacco usage again approximate 1/2-year prior, currently 1/2 pack/day cigarette tobacco usage. Tobacco Use: Cigarettes Alcohol: None Drugs: None Review of Systems - Review of Systems General: Denies: Fever, Night Sweats, Fatigue Cardiovascular: Reports: Chest Discomfort. Denies: Shortness of Breath, Orthopnea, PND, Peripheral Edema, Palpitations, Lightheadedness, Dizziness, Near Syncope, Syncope Respiratory: Denies: Cough, Sputum Production, Hemoptysis Gastrointestinal: Denies: Hematemesis, Hematochezia, Melena Genitourinary: Denies: Dysuria, Hematuria Skin: Denies: Rash Objective: Vital Signs Temp Pulse Resp BP Pulse Ox 97.7 F L 77 18 104/70 97 01/08/19 08:47 01/08/19 08:48 01/08/19 08:47 01/08/19 08:47 01/08/19 08:47 Oxygen Flow Rate (L/min) 2 Oxygen Delivery Method Room Air Weight: 237 lb 7.005 oz Body Mass Index (BMI) 28.9 Finger Stick Blood Glucose 127 Intake and Output for Last 24 Hours 01/06/19 01/07/19 01/08/19 23:59 23:59 23:59 Intake Total 860 / 860 583 / 583 Output Total 1925 / 1925 975 / 975 Balance -1065 / -1065 -392 / -392 General: Awake, Alert, Oriented x 3, Cooperative, No Acute Distress HEENT: Atraumatic, Normocephalic, PERRL, EOMI, Sclera Non Icteric Oral: Moist Mucosa Neck: Supple, Good ROM, No JVD Lungs: Clear to auscultation Cardiovascular: Regular Rhythm, Normal S1, Normal S2 Abdomen: Bowel Sounds Present, Soft, Non Tender Extremities: No edema Neurological: No Focal Motor or Sensory Deficit Psych/Mental Status: Appropriate 01/07/19 09:15: WBC 5.6, RBC 4.59 L, Hgb 14.6, Hct 43.2, MCV 94.1 H, MCH 31.8, MCHC 33.8, RDW 12.6, RDW Differential 42.3, Plt Count 179, MPV 10.5, Immature Gran % (Auto) 0.200, Neut % (Auto) 52.5, Lymph % (Auto) 33.2, [place] % (Auto) 10.6 H, Eos % (Auto) 3.1, Baso % (Auto) 0.4, Absolute Neuts (auto) 2.9, Total Counted Not Reportable 01/07/19 09:15: Sodium 136, Potassium 4.1, Chloride 102, Carbon Dioxide 23.0, Anion Gap 11, BUN 15, Creatinine 0.84, Est GFR (MDRD) Af Amer 125, Est GFR (MDRD) Non-Af 103, BUN/Creatinine Ratio 17.8, Glucose 327 H, Calcium 8.8, Troponin I < 0.015 01/07/19 09:15: Magnesium 1.8 01/07/19 09:15: Hemoglobin A1c 10.1 H 01/07/19 13:05: Troponin I < 0.015 01/07/19 16:30: Troponin I < 0.015 01/08/19 04:30: WBC 5.1, RBC 4.37 L, Hgb 13.9, Hct 41.1, MCV 94.1 H, MCH 31.8, MCHC 33.8, RDW 12.4, RDW Differential 41.8, Plt Count 168, MPV 10.7 01/08/19 04:30: Sodium 137, Potassium 4.0, Chloride 102, Carbon Dioxide 28.0, Anion Gap 7, BUN 13, Creatinine 0.90, Est GFR (MDRD) Af Amer 115, Est GFR (MDRD) Non-Af 95, BUN/Creatinine Ratio 14.4, Glucose 196 H, Calcium 8.9, Total Bilirubin 0.50, Triglycerides 104, Cholesterol 125, LDL Cholesterol 71, VLDL Cholesterol 21, HDL Cholesterol 33 L 01/08/19 04:30: PT 13.5, INR 1.1, APTT 26.1 Rhythm: Sinus rhythm EKG: As noted above ECHO: 03-08-18: Left ventricular regional wall motion abnormalities with overall preserved LVEF of 60%; mild left atrial enlargement; trivial MR/TR; mild AI; estimated RV systolic pressure 28 mmHg; decreased diastolic compliance Stress Test: As noted above Cardiac Cath: 03-07-18; LV with severe posterior basilar hypokinesis with an LVEF of 55%; left main normal; LAD with mid 50% stenosis; diagonal branch #1 with ostial 70-80% stenosis; LCx with no significant disease; RCA with proximal 100% stenosis PCI:??: RCA thrombectomy and PTCA/TA CXR: As noted above Assessment/Plan 1. CAD status post CA status post RCA PTCA/stent-repeat At the present time the patient presented back with concerning symptoms. He has undergone noninvasive evaluation. The results are as noted above. He was recommended for further evaluation with diagnostic cardiac catheterization. The procedure and risks were discussed with him. He was agreeable to this approach. In the interim he will continue medical management as deemed appropriate. 2. Hyperlipidemia The patient will continue risk factor evaluation and care. 3. Hypertension The patient will continue antihypertensive therapy with adjustment as needed. The patient was also counseled on the importance to totally discontinue his tobacco use, continue with appropriate dietary therapy and exercise, and continue his medications as directed. This note was generated using a voice recognition system and there may be incorrect words, spelling or punctuation that were not noted when reviewing the office note prior to saving.
[2019-01-08] MEDS: 0.9% Normal Saline 1,000 ML 75 ML IV (11:00)
[2019-01-08 11:11] LABS: Bedside Glucose 210 mg/dL (70-110)
[2019-01-08] MEDS: Cilostazol 50 MG Tablet 100 MG PO (11:42)
[2019-01-08] MEDS: Metoprolol(XL)Succ 25 MG Tablet PO (11:43)
[2019-01-08] MEDS: Pantoprazole Sodium 40 MG Tablet PO (11:44)
[2019-01-08] MEDS: Insulin Lispro 100 UNIT/ML INSULN.PEN SC ×2 (11:46→11:47)
[2019-01-08] MEDS: Citalopram 10 MG Tablet PO (11:46)
[2019-01-08] MEDS: Gabapentin 600 MG Tablet PO (11:46)
--- NOTE | 2019-01-08 14:05 | DCINST_ITS ---
- Discharge Diagnoses Current Active Problems: Current Active and Chronic Problems (Last Updated 01/21/18 @ 12:36 by Jaye Loco) (1) Chest Pain, Abnormal Stress Test likely secondary to prior disease; however, Follow-up Cardiac catheterization with no PCI intervention needs, medical management (2) CAD s/p PCI x 3 (4) Diabetes mellitus type II, Uncontrolled (HgbA1c 10.1%) (5) Hypertension (6) Hyperlipidemia (7) Obesity (8) Tobacco Abuse (9) Anxiety and Depression (10) GERD You will use the following diet at home:: Calorie/Carbohydrate Controlled (specify 1200, 1400, etc) - 1800 ADA diet/Low Fat and Low Cholesterol Cardiac diet Your food should be the consistency of: Regular Your liquids should be the consistency of: Regular/Thin Discharge Activity: - - Encourage initiation of regular aerobic exercise. Will refer to Cardiac rehabilitation. May resume sexual activity in: No Restrictions Weight Bearing Status: Weight bearing as tolerated Call your doctor if your incision/area has: Continuous Slow Oozing, Sudden Increased Bleeding, Increased Pain/ Swelling, Increased Redness, Foul Smelling Discharge, Swelling at the incision site Call your doctor if you observe: Fever of 101 or Higher, Inability to urinate, Inability to have a bowel movement, Shortness of breath, Dizziness, Fainting spells, Chest pain, Uncontrolled pain Instructions: Understanding Coronary Artery Disease (CAD), ED Chest Pain NonCardiac, Using a Blood Sugar Log, Diabetes and Heart Disease, Long-Term Complications of Diabetes, Hyperglycemia (High Blood Sugar), Hypoglycemia (Low Blood Sugar), What Is Type 2 Diabetes?, Resources for People with Diabetes, Using Injected Insulin, Oral Medications for Type 2 Diabetes, Types of Insulin, Healthy Meals for Diabetes, Diabetes: Understanding Carbohydrates, Eating Out When You Have Diabetes, Diabetes: Shopping for and Preparing Meals Additional Instructions: Please review diabetic options with your primary care physician. You have been given rx for insulin options given the level of your HgBA1c; however, if you and your physician decide you may continue aggressive lifestyle changes and oral antidiabetic therapies. Allergies/Adverse Reactions: Allergies acetaminophen [From Tylenol] Allergy (Verified 01/07/19 09:11) Angioedema aspirin Allergy (Verified 01/07/19 09:11) Anaphylaxis ibuprofen [From Motrin] Allergy (Verified 01/07/19 09:11) Anaphylaxis metformin Allergy (Verified 01/07/19 09:11) Swelling pollen extracts Allergy (Verified 01/07/19 09:11) Hives caffeine [From Excedrin Migraine] Adverse Reaction (Severe, Verified 01/07/19 09:11) Face swelling morphine Adverse Reaction (Verified 01/07/19 09:11) Other REDDNESS AND ITCHING TO IV SITE Medications to take at Discharge Citalopram [Celexa] 10 mg PO DAILY 08/02/15 Cyclobenzaprine [Flexeril] 10 mg PO TID 08/02/15 Ranitidine [Zantac] 300 mg PO BID 08/02/15 Cholecalciferol (VIT D3) [Vitamin D3] 1,000 unit PO BID 08/17/15 B12/Levomefolate Calcium/B-6 [Foltx Tablet] 1 ea PO DAILY 11/17/15 Esomeprazole Mag Trihydrate [Nexium] 80 mg PO BID 03/05/16 gabapentin 600 mg tablet 600 mg PO TID tab 01/23/18 glipizide ER 2.5 mg tablet, extended release 24 hr 5 mg PO BID 01/23/18 Atorvastatin Calcium [Lipitor] 80 mg PO QHS #30 tab 03/09/18 Nitroglycerin [Nitrostat] 0.4 mg SUBLINGUAL Q5M PRN #10 tab 03/09/18 ticagrelor 90 mg tablet 90 mg PO BID #60 tab 04/07/18 cilostazol 100 mg tablet 100 mg PO BID #60 tab 05/06/18 metoprolol succinate ER 25 mg tablet,extended release 24 hr 25 mg PO DAILY #30 tab 05/13/18 Isosorbide Mononitrate [Imdur] 60 mg PO DAILY 01/07/19 Levocetirizine Dihydrochloride 5 mg PO DAILY 01/07/19 Oxybutynin [Ditropan] 10 mg PO QHS 01/07/19 Insulin Glargine [Lantus SoloStar Pen] 10 units SC 1100,2200 #1 pen 01/08/19 Insulin Lispro [Humalog KwikPen] 5 unit SC TIDAC #1 insuln.pen 01/08/19 Insulin Lispro [Humalog KwikPen] See Protocol SC ACHS #1 insuln.pen 01/08/19 Nicotine [Nicoderm] 14 mg TRANSDERM. DAILY #20 patch 01/08/19 Pen Needle, Diabetic [Pen Needle] 1 each UD #1 box 01/08/19 The following prescriptions were given: Insulin Glargine [Lantus SoloStar Pen] 10 units SC 1100,2200 #1 pen Insulin Lispro [Humalog KwikPen] 5 unit SC TIDAC #1 insuln.pen Insulin Lispro [Humalog KwikPen] See Protocol SC ACHS #1 insuln.pen Nicotine [Nicoderm] 14 mg TRANSDERM. DAILY #20 patch Pen Needle, Diabetic [Pen Needle] 1 each UD #1 box Primary Care Physician: Olivier Oates MD [Primary Care Provider] - Please follow up with your Primary Care Physician in: Follow-up within 3-5 days. Test Results: Test results from this visit will be discussed in further detail at your follow- up appointment, if applicable. Please Follow Up With: Ronnie Franco MD When: Follow-up as requested per Cardiology, their office will call you. Please Follow Up With: Cardiac rehab When: Please establish with Cardiac rehabilitation to initiate exercise program. Proposed Discharge Date: 01/08/19
--- NOTE | 2019-01-08 14:06 | PCM.DC.SUM ---
Discharge Date and Diagnosis Date of Admission: 01/07/19 Date of Discharge: 01/08/19 - Primary Discharge Diagnosis Active and Suspected Problems (Last Updated 01/21/18 @ 12:36 by Jaye Loco) (1) Chest Pain, Abnormal Stress Test likely secondary to prior disease; however, Follow-up Cardiac catheterization with no PCI intervention needs, medical management (2) CAD s/p PCI x 3 (4) Diabetes mellitus type II, Uncontrolled (HgbA1c 10.1%) (5) Hypertension (6) Hyperlipidemia (7) Obesity (8) Tobacco Abuse (9) Anxiety and Depression (10) GERD - Secondary Discharge Diagnosis Chronic Problems (Last Updated 01/21/18 @ 12:36 by Jaye Loco) CAD (coronary artery disease) (Chronic) History of coronary artery stent placement (Chronic 03/07/18) S/P stenting in 2010; bare-metal stent to RCA in July 2017; drug-eluting stent to proximal RCA for ISR and PTCA to RPDA and RPLV in February 2018; Smoker (Chronic) Coronary angioplasty status (Chronic) Nicotine abuse (Chronic) Left atrial enlargement (Chronic) Other fpc (current) drug therapy (Chronic) Aortic root dilatation (Chronic) Atherosclerotic heart disease of [place] coronary artery with angina pectoris with documented spasm (Chronic) S/P stenting in 2010; bare-metal stent to RCA in July 2017; drug-eluting stent to proximal RCA for ISR and PTCA to RPDA and RPLV in February 2018; Presence of coronary angioplasty implant and graft (Chronic) PTCA with BMS to RCA 11/24; [facility] w/PCI of RCA Acute ST segment elevation ID (Chronic) Smoker (Chronic) Essential (primary) hypertension (Chronic) CAD (coronary artery disease) (Chronic) hx AMI 1 stent Seasonal allergies (Chronic) Overactive bladder (Chronic) spinal stenosis (Chronic) Hyperlipidemia (Chronic) Diabetes (Chronic) with diabetic neuropathy Hospital Course and Treatment Imaging Results: 01/08/19 05:55 Nuclear Stress Test - Chemical [NM] Routine Dr. Franco Cardiology Operations: None Procedures: Cardiac catheterization, EKG Summary of Care Provided: The patient is a 48 y/o M w/ PMHx: HTN, HLD, Tobacco use, CAD s/p PCI and hx STEMI, Chronic back pain w/ spinal stenosis, Obesity presented to the [facility] ED on 01/07/19 with history of mild dyspepsia the evening prior to current presentation with onset this morning, waking him up, midsternal nonradiating chest heaviness, pressure with additional occasional stabbing pain associated with complete resolution following self administration of sublingual nitroglycerin x 2. Workup in the ED included T 98.5, heart rate 78, BP 11/06/1981, respiratory rate 20, 96% on room air, CBC with W BC 5.6, heme globin 14.6, platelet 179 without market left shift, BMP unremarkable aside glucose 327, troponin less than 0.015, chest x-ray with no acute cardiopulmonary findings, EKG with acute evidence of ischemia. Patient admitted to the PCU, placed on a monitored bed to assure no acute myocardial infarction with serial cardiac enzymes and EKGs. Patient underwent AM stress testing demonstrating myocardial perfusion changes compatible with an area of previous myocardial injury/infarction involving portions of the basal inferoseptal/inferior segments as well as post stress myocardial perfusion changes compatible with [place]-infarct related myocardial ischemia in portions of the mid to distal inferior segments. Cardiology was consulted and patient underwent AM cardiac catheterization following his abnormal stress testing which was negative for concerning lesions with no intervention with recommendation for continued medical management. During admission, patient with elevated BS, 300-400s, HgbA1c 10.1%. Adde low dose BID lantus and scheduled low dose short acting insulin with meals with nutrition education. This was continued upon discharge as well. Patient resumption of tobacco use over the last ~ 6 months, recommended strongly tobacco cessation and NR given with step down therapy request to be undertaken with his PCP. Patient discharged to home in stable and improved condition on continued medical therapy with follow-up with his PCP within 3-5 days as well as Cardiology. DAY OF DISCHARGE PROGRESS NOTE: Subjective: Patient without acute event overnight per self and nursing report. Discussed HgbA1c results, initiation of insulin therapy and need for strict diet and lifestyle changes. Patient denies fever, chills, nausea, emesis, abdominal pain, recurrent chest pain or dyspnea. Patient agreeable to discharge to home. Patient will be discharged with follow-up with primary care physician within 3-5 days in addition to Cardiology per their recommendation. Objective: T 98.1, heart rate 80, BP 108/86, respiratory rate 16, 98% on room air. Physical Examination: General: awake, alert, oriented x 3 and cooperative, seated upright in the bed, NAD. Skin: normal color, turgor, no icterus, cyanosis. HEENT: AT/NC, EOMI, PERRLA, MMM. Lungs: CTA bilaterally, moderate effort, mild decrease BL bases, no rales, ronchi or wheezing; Heart: Regular rate and rhythm; no gallop, rub audible. Abdomen: soft, overweight, NTTP, ND, normal BS. Extremities: no cyanosis, clubbing, or edema. Neurological: patient awake, alert, oriented x 3; cognitive function appears intact upon questioning,; pupils equally reactive to light and accomodation; cranial nerves II-XII grossly normal, moving all 4 extremities, strength appropriate. Psychiatric: affect appears normal, no acute evidence of depressive or anxiety feelings. Assessment and Plan: Please see hospital summary above. - Physical Exam Vital Signs Temp Pulse Resp BP Pulse Ox 97.7 F L 64 18 112/71 99 01/08/19 08:47 01/08/19 12:15 01/08/19 12:15 01/08/19 12:15 01/08/19 12:15 Oxygen Flow Rate (L/min) 2 Oxygen Delivery Method Room Air Weight: 237 lb 7.005 oz Body Mass Index (BMI) 28.9 Finger Stick Blood Glucose 127 Intake and Output for Last 24 Hours 01/06/19 01/07/19 01/08/19 23:59 23:59 23:59 Intake Total 860 / 860 983 / 983 Output Total 1925 / 1925 1475 / 1475 Balance -1065 / -1065 -492 / -492 Laboratory Tests Past 24 Hrs 01/07/19 01/07/19 01/08/19 13:05 16:30 04:30 WBC 5.1 RBC 4.37 L Hgb 13.9 Hct 41.1 MCV 94.1 H MCH 31.8 MCHC 33.8 RDW 12.4 RDW Differential 41.8 Plt Count 168 MPV 10.7 PT INR APTT Sodium Potassium Chloride Carbon Dioxide Anion Gap BUN Creatinine Estim Creat Clear Calc Est GFR (MDRD) Af Amer Est GFR (MDRD) Non-Af BUN/Creatinine Ratio Glucose Calcium Total Bilirubin AST ALT Alkaline Phosphatase Troponin I < 0.015 < 0.015 Total Protein Albumin Globulin Albumin/Globulin Ratio Triglycerides Cholesterol LDL Cholesterol VLDL Cholesterol HDL Cholesterol 01/08/19 01/08/19 04:30 04:30 WBC RBC Hgb Hct MCV MCH MCHC RDW RDW Differential Plt Count MPV PT 13.5 INR 1.1 APTT 26.1 Sodium 137 Potassium 4.0 Chloride 102 Carbon Dioxide 28.0 Anion Gap 7 BUN 13 Creatinine 0.90 Estim Creat Clear Calc 123.23 Est GFR (MDRD) Af Amer 115 Est GFR (MDRD) Non-Af 95 BUN/Creatinine Ratio 14.4 Glucose 196 H Calcium 8.9 Total Bilirubin 0.50 AST 11 L ALT 26 Alkaline Phosphatase 119 H Troponin I Total Protein 6.9 Albumin 3.1 L Globulin 3.8 Albumin/Globulin Ratio 0.8 L Triglycerides 104 Cholesterol 125 LDL Cholesterol 71 VLDL Cholesterol 21 HDL Cholesterol 33 L POC Glucose 01/08/19 01/08/19 01/07/19 11:05 05:43 21:00 POC Glucose 210 H 198 H 405 H Home Medications: Medications to take at Discharge RX: Citalopram [Celexa] 10 mg PO DAILY 08/02/15 RX: Cyclobenzaprine [Flexeril] 10 mg PO TID 08/02/15 RX: Ranitidine [Zantac] 300 mg PO BID 08/02/15 RX: Cholecalciferol (VIT D3) [Vitamin D3] 1,000 unit PO BID 08/17/15 RX: B12/Levomefolate Calcium/B-6 [Foltx Tablet] 1 ea PO DAILY 11/17/15 RX: Esomeprazole Mag Trihydrate [Nexium] 80 mg PO BID 03/05/16 gabapentin 600 mg tablet 600 mg PO TID tab 01/23/18 glipizide ER 2.5 mg tablet, extended release 24 hr 5 mg PO BID 01/23/18 RX: Atorvastatin Calcium [Lipitor] 80 mg PO QHS #30 tab 03/09/18 RX: Nitroglycerin [Nitrostat] 0.4 mg SUBLINGUAL Q5M PRN #10 tab 03/09/18 ticagrelor 90 mg tablet 90 mg PO BID #60 tab 04/07/18 cilostazol 100 mg tablet 100 mg PO BID #60 tab 05/06/18 metoprolol succinate ER 25 mg tablet,extended release 24 hr 25 mg PO DAILY #30 tab 05/13/18 RX: Isosorbide Mononitrate [Imdur] 60 mg PO DAILY 01/07/19 RX: Levocetirizine Dihydrochloride 5 mg PO DAILY 01/07/19 RX: Oxybutynin [Ditropan] 10 mg PO QHS 01/07/19 Pen Needle, Diabetic [Pen Needle] 1 each UD #1 box 01/08/19 RX: Insulin Glargine [Lantus SoloStar Pen] 10 units SC 1100,2200 #1 pen 01/08/19 RX: Insulin Lispro [Humalog KwikPen] 5 unit SC TIDAC #1 insuln.pen 01/08/19 RX: Insulin Lispro [Humalog KwikPen] See Protocol MS ACHS #1 insuln.pen 01/08/19 RX: Nicotine [Nicoderm] 14 mg TRANSDERM. DAILY #20 patch 01/08/19 Following Prescrptions Were Given to Patient: RX: Insulin Glargine [Lantus SoloStar Pen] 10 units SC 1100,2200 #1 pen RX: Insulin Lispro [Humalog KwikPen] 5 unit SC TIDAC #1 insuln.pen RX: Insulin Lispro [Humalog KwikPen] See Protocol MS ACHS #1 insuln.pen RX: Nicotine [Nicoderm] 14 mg TRANSDERM. DAILY #20 patch Pen Needle, Diabetic [Pen Needle] 1 each UD #1 box Primary Care Physician: Olivier Oates MD [Primary Care Provider] - Patient Instructions: Using a Blood Sugar Log, Diabetes and Heart Disease, Long-Term Complications of Diabetes, Hyperglycemia (High Blood Sugar), Hypoglycemia (Low Blood Sugar), Resources for People with Diabetes, What Is Type 2 Diabetes?, Using Injected Insulin, Oral Medications for Type 2 Diabetes, Types of Insulin, Healthy Meals for Diabetes, Diabetes: Understanding Carbohydrates, Eating Out When You Have Diabetes, Diabetes: Shopping for and Preparing Meals, Understanding Coronary Artery Disease (CAD), ED Chest Pain NonCardiac Disposition: Home Minutes spent on discharge:: 35 Patient Condition:: Fair Medical Necessity - Tobacco Use Smoking Status: Current every day smoker - Started cigarette tobacco usage again approximate 1/2-year prior, currently 1/2 pack/day cigarette tobacco usage. Tobacco Use: Cigarettes Meaningful Use Info Meaningful Use Diagnoses (Choose all that apply): None applicable Code Visit OBSV E&M: 41197 Observation care discharge
--- NOTE | 2019-01-08 15:30 | NURSING ---
reviewed discharge instructions with patient & significant other both voiced understanding, rt groin dressing dry & intact rt wrist dressing dry & intact, discharged per wheelchair with instructions & meds
--- NOTE | 2019-01-08 19:13 | CL.D_ITS ---
Patient Name: CHEPE MALDONADO Study Date: 01/08/2019 Performing: Ronnie Franco MD Ht: 76 inches 193 cm : 1970 Wt: 238.4 lbs 108 kg Age: 48 Gender: male BSA: 2.39 PROCEDURE(S) PERFORMED [id number]-[id number] CLINICAL PROFILE AND INDICATIONS Indications: Suspected CAD Heart Failure: None Stress/Imaging Stress Test w/SPECT MPI: Yes Result: PositiveStress Test with SPECT MPI: Positive Angina Classification Anginal Classification w/in 2 Weeks: CCS IV CAD Presentations: Unstable angina. CONCLUSIONS Normal Left Ventricular End Diastolic Pressure left ventricular regional wall motion abnormalities with overall preserved LV systolic function LVEF: by LV gram 55 % [place] Multivessel CAD RECOMMENDATIONS Risk factor modification Medical therapy DESCRIPTION OF PROCEDURE The patient arrived to the procedure lab. The risks and benefits of the procedure as well as a full d escription of our services here and current unavailability of surgical backup were fully explained to the patient and/or their significant other prior to the catheterization. The Timeout was completed, verifying the correct patient and procedure. The patient's procedural site was prepped and draped in the usual fashion. Local anesthetic was given subcutaneously to right radial region with Lidocaine 2% . Local anesthetic was given subcutaneously to right groin region with Lidocaine 2%. Using a modified Seldinger technique, arterial access was obtained via the right femoral artery, a 4Fr sheath was ins erted Left Coronary Artery selective angiography was performed in multiple views using a 4 Fr. JL4 c atheter. Right Coronary Artery selective angiography was then performed in multiple views using a 4 F r. JR4 catheter. Left Ventriculography was performed in LOWE projection using a 4 Fr. Pigtail catheter. LV to AO pullback pressures were then recorded.The arterial sheath was pulled and m anual compression applied until hemostasis is achieved. CORONARY ANGIOGRAPHY DOMINANCE: Right Dominant LEFT HEART ASSESSMENT Left Ventricular Ejection Fraction: by LV Gram 55 % Inferior Basal Hypokinesis Normal Left Ventricular End Diastolic Pressure LVEDP: 11 mmHg LEFT MAIN: Mild luminal irregularities LEFT ANTERIOR DECENDING ARTERY: PROX LAD: Eccentric: 25 % Stenosis DIAGONAL 1: Ostial - 25 - 50 % Stenosis CIRCUMFLEX ARTERY: Mild luminal irregularities OM 1: Proximal - Mild luminal irregularities RIGHT CORONARY ARTERY: PROX RCA: Previously placed stent is patent MID RCA: Previously placed stent is patent DISTAL RCA: Mild luminal irregularities VALVE FINDINGS: Normal Aortic Valve function Normal Mitral Valve function AORTIC ROOT: Angiographically normal COMPLICATIONS No Complications PROCEDURE MEDICATIONS Versed 1 mg IV Fentanyl 25 mcg IV Fentanyl 25 mcg IV Oxygen: 2 L/min via nasal cannula SUMMARY OF HEMODYNAMIC DATA Time AIR REST ECG 09:36:10 AO 111/75 (90) SA 10:12:24 LV 117/-2, 11 10:23:21 LV 110/-1, 11 10:23:27 LV 115/-3, 11 10:24:42 LV 118/-4, 13 10:24:49 LVp 117/-4, 11 10:24:54 AOp 107/70 (85) 10:24:59 Signed By Ronnie Franco MD On 01/08/2019 19:12:12 Ronnie Franco MD
== END 2019-01-08 14:12 | disposition home or self-care (01) ==
LOC: ED 09:33 → PCU 11:10
PROVIDERS: Admitting Provider Family Medicine; Emergency Provider Emergency Medicine; Family Provider Family Medicine; PCP Family Medicine; Visit Provider Family Medicine
DX: R07.89 Other chest pain (principal); I25.2 Old myocardial infarction; I25.10 Atherosclerotic heart disease of native coronary artery without angina pectoris; I10 Essential (primary) hypertension; E78.5 Hyperlipidemia, unspecified; E11.40 Type 2 diabetes mellitus with diabetic neuropathy, unspecified; F32.9 Major depressive disorder, single episode, unspecified; F41.9 Anxiety disorder, unspecified; G89.29 Other chronic pain; N32.81 Overactive bladder; G47.33 Obstructive sleep apnea (adult) (pediatric); F17.210 Nicotine dependence, cigarettes, uncomplicated; K21.9 Gastro-esophageal reflux disease without esophagitis; E11.65 Type 2 diabetes mellitus with hyperglycemia; R94.39 Abnormal result of other cardiovascular function study; Z79.899 Other long term (current) drug therapy; Z95.5 Presence of coronary angioplasty implant and graft; Z79.84 Long term (current) use of oral hypoglycemic drugs
CPT/HCPCS: 36415; 71045; 78452; 80048; 80053; 80061; 82962; 83036; 83735; 84484; 85025; 85027; 85610; 85730; 93005; 93017; 93458; 96360; 96361; 96372; 97802; 99152; 99153; 99218; 99284; 99406; A9500; J7030; J7040; A4216; C1769; C1894; G0378; J2785; Q9967

== ENCOUNTER 2019-02-08 23:43 | Emergency (ER) | payer MEDICARE, SELFPAY ==
[2019-01-16 14:19] VITALS: BMI 29.4
[2019-02-08 23:45] VITALS: BP 111/91; PULSE 104; RESP 18; TEMP 37.4; O2SAT 97; BMI 28.6
--- NOTE | 2019-02-09 00:45 | ED.DEP ---
ED Disposition - Plan for ED Patient: Instructions: ED Screening Exam Medical Nonurgent Referrals: Olivier Oates MD [Primary Care Provider] -
--- NOTE | 2019-02-09 00:46 | ED.DCSUM_ITS ---
- ER Visit Summary Date of Service: 02/09/19 Chief Complaint: [place] hot History of Present Illness: The patient is a 48 M who states he is unsure why he is here. He was brought in as an altered mental status. Apparently his roommate was concerned that he may have used methamphetamine which the patient denies. Patient states that he felt hot but after turning off and felt better and he has some dry mouth. He otherwise has no complaints. He denies fevers chest pain shortness of breath cough nausea or vomiting. He states he had 2 days of diarrhea 4 days ago but that has resolved. He has no complaints at this time. Physical Examination: Afebrile temp 99.4, heart rate 104 Moist mucous membranes Heart regular rhythm slightly tachycardic Lungs are clear Abdomen soft nontender nondistended Alert and oriented with no focal or lateralizing neurological deficits, answers all questions appropriately, is able to provide recent history, he knows where he is the month year age he does appear restless and fidgety but is not confused Test Results: Declined Emergency Department Course and Treatment: Patient has no complaints. He denies any drug abuse. He is alert and oriented. He does not want any further work- up. He states he just wants to be discharged to go home. Treatment Plan: [] Disposition: Discharge Impression: Medical screening exam This note was generated with [employer] dictation software. It may contain incorrect words, spelling, and punctuation that were not noted in review of the chart prior to signing ED Disposition - Plan for ED Patient: Referrals: Olivier Oates MD [Primary Care Provider] -
== END 2019-02-09 01:00 | disposition home or self-care (01) ==
PROVIDERS: Emergency Provider Emergency Medicine; Family Provider Family Medicine; PCP Family Medicine
DX: Z13.89 Encounter for screening for other disorder (principal); R41.82 Altered mental status, unspecified; I25.10 Atherosclerotic heart disease of native coronary artery without angina pectoris; E11.9 Type 2 diabetes mellitus without complications; I10 Essential (primary) hypertension; E78.00 Pure hypercholesterolemia, unspecified; Z72.0 Tobacco use
CPT/HCPCS: 99284